=== PATIENT | female | born 1975 | race Two or more races ===

== ENCOUNTER 2017-01-16 10:38 | Emergency (ER) | payer BC ==
[~2017-01-16] VITALS: Ht 162.6 cm; Wt 99.8 kg
[~2017-01-16 10:38] MED LIST: CITA10TA59 PO; OMEP20CA5 OR
[2017-01-16] MEDS ORDERED: SODIUM CHLORIDE 0.9% 1,000 ML IVB ONE (11:28)
[2017-01-16] MEDS ORDERED: ONDANSETRON HCL 4 MG/2 ML VIAL IV ONE (11:30)
[2017-01-16] MEDS ORDERED: PANTOPRAZOLE SODIUM 40 MG/10 ML VIAL IV ONE (11:30)
[2017-01-16] MEDS ORDERED: MORPHINE SULFATE 4 MG/ML SYRG IV ONE (11:30)
[2017-01-16 12:15] LABS: Albumin 3.1 g/dL (3.4-5.0); BUN/Creatinine Ratio 15.4; Bilirubin, Total 0.4 mg/dL (0.2-1.0); Calcium 8.9 mg/dL (8.5-10.1); Potassium 3.9 mmol/L (3.5-5.1); Total Protein 7.1 g/dL (6.4-8.2)
[2017-01-16 12:20] LABS: Basophils # (auto) 0 uL; Basophils % (auto) 0.3 % (0.0-2.0); Eosinophils # (auto) 0.2 uL; Eosinophils % (auto) 2.4 % (0.0-7.0); Hematocrit 43.8 % (36.0-46.0); Hemoglobin 15.2 g/dL (12.2-16.2); Lymphocytes # (auto) 1.8 uL; Lymphocytes % (auto) 20.8 % (10.0-50.0); Mean Corpuscular Hemoglobin 31.3 pg (28.0-32.0); Mean Corpuscular Hgb Conc. 34.7 g/dL (32.0-36.0); Mean Corpuscular Volume 90.2 fL (80.0-100.0); Mean Platelet Volume 7.7 fL (7.4-10.4); Monocytes # (auto) 0.5 uL; Monocytes % (auto) 6.2 % (0.0-12.0); Neutrophils # (auto) 6.2 uL; Neutrophils % (auto) 70.3 % (37.0-80.0); Platelet Count (auto) 301 10^3/uL (140-450); Red Cell Distribution Width 13.7 % (11.6-16.0); White Blood Cell 8.8 10^3/uL (4.4-10.8)
[2017-01-16 12:27] LABS: Urine Bilirubin Negative (Negative); Urine Color Yellow (Yellow); Urine Glucose Normal (Normal); Urine Ketone Negative (Negative); Urine Mucus FEW (None Seen); Urine Nitrite Negative (Negative); Urine RBC 10 /hpf (0 - 4); Urine Squamous Epithelial Cell MOD /hpf (<5)
[2017-01-16 12:41] LABS: Urine Blood 1+ /uL (Negative)
[2017-01-16 14:40] VITALS: BP 114/68
== END 2017-01-16 14:45 | disposition home or self-care (01) ==
LOC: EDUNIT# 10:38 → ER 10:38
DX: R10.13 Epigastric pain (principal); R11.2 Nausea with vomiting, unspecified; K21.9 Gastro-esophageal reflux disease without esophagitis; Z87.440 Personal history of urinary (tract) infections; Z90.49 Acquired absence of other specified parts of digestive tract; Z98.51 Tubal ligation status
CPT/HCPCS: 36415; 74176; 80053; 81001; 83690; 85025; 94761; 96361; 96374; 96375; 99285; C9113; J2270; J2405; J7030

== ENCOUNTER → 2017-02-27 | Outpatient (CLI) | payer BC ==
[2017-02-27 07:46] LABS: Basophils # (auto) 0.1 uL; Basophils % (auto) 1.6 % (0.0-2.0); Eosinophils # (auto) 0.2 uL; Eosinophils % (auto) 3.2 % (0.0-7.0); Hematocrit 45.2 % (36.0-46.0); Hemoglobin 15.2 g/dL (12.2-16.2); Lymphocytes # (auto) 2.2 uL; Lymphocytes % (auto) 38.6 % (10.0-50.0); Mean Corpuscular Hemoglobin 30.8 pg (28.0-32.0); Mean Corpuscular Hgb Conc. 33.6 g/dL (32.0-36.0); Mean Corpuscular Volume 91.5 fL (80.0-100.0); Mean Platelet Volume 7.6 fL (7.4-10.4); Monocytes # (auto) 0.4 uL; Monocytes % (auto) 6.8 % (0.0-12.0); Neutrophils # (auto) 2.8 uL; Neutrophils % (auto) 49.8 % (37.0-80.0); Platelet Count (auto) 325 10^3/uL (140-450); Red Cell Distribution Width 13.8 % (11.6-16.0); White Blood Cell 5.7 10^3/uL (4.4-10.8)
[2017-02-27 08:25] LABS: Albumin 3.2 g/dL (3.4-5.0); BUN/Creatinine Ratio 9.1; Bilirubin, Total 0.2 mg/dL (0.2-1.0); Potassium 3.8 mmol/L (3.5-5.1); Total Protein 7.3 g/dL (6.4-8.2)
== END | disposition home or self-care (01) ==
LOC: LAB 07:00
PROVIDERS: ATTEND Internal Medicine
DX: D46.9 Myelodysplastic syndrome, unspecified (principal); E78.5 Hyperlipidemia, unspecified
CPT/HCPCS: 36415; 80053; 80061; 82043; 82728; 83036; 84443; 85025

== ENCOUNTER → 2017-04-18 | Outpatient (CLI) | payer BC ==
[2017-04-18 07:48] LABS: Albumin 3.3 g/dL (3.4-5.0); BUN/Creatinine Ratio 16.7; Bilirubin, Total 0.4 mg/dL (0.2-1.0); Calcium 8.4 mg/dL (8.5-10.1)
== END | disposition home or self-care (01) ==
LOC: LAB 06:58
PROVIDERS: ATTEND Internal Medicine
DX: E11.9 Type 2 diabetes mellitus without complications (principal)
CPT/HCPCS: 36415; 80053; 83036

== ENCOUNTER → 2017-06-02 | Outpatient (CLI) | payer BC ==
[~2017-06-02] MED LIST changes: -OMEP20CA5 OR; +OMEP20CA74 OR
== END | disposition home or self-care (01) ==
LOC: LAB 06:55
PROVIDERS: ATTEND Obstetrics & Gynecology
DX: D35.00 Benign neoplasm of unspecified adrenal gland (principal)
CPT/HCPCS: 36415; 82565; 84520

== ENCOUNTER 2017-08-15 06:56 | Inpatient (IN) | payer BC ==
[2017-08-12 12:46] LABS: Basophils # (auto) 0.1 uL; Basophils % (auto) 1.2 % (0.0-2.0); Eosinophils # (auto) 0.2 uL; Eosinophils % (auto) 3.1 % (0.0-7.0); Hematocrit 47.4 % (36.0-46.0); Lymphocytes # (auto) 1.8 uL; Lymphocytes % (auto) 24.5 % (10.0-50.0); Mean Corpuscular Hemoglobin 31.4 pg (28.0-32.0); Mean Corpuscular Hgb Conc. 33.9 g/dL (32.0-36.0); Mean Corpuscular Volume 92.8 fL (80.0-100.0); Mean Platelet Volume 7.1 fL (6.9-10.8); Monocytes # (auto) 0.5 uL; Monocytes % (auto) 6.3 % (0.0-12.0); Neutrophils # (auto) 4.8 uL; Neutrophils % (auto) 64.9 % (37.0-80.0); Nucleated Red Blood Cells % 0.1 %; Platelet Count (auto) 272 10^3/uL (140-450); Red Cell Distribution Width 13.7 % (11.8-14.3); White Blood Cell 7.4 10^3/uL (4.4-10.8)
[2017-08-12 12:54] LABS: Urine Bilirubin Negative (Negative); Urine Blood 3+ /uL (Negative); Urine Color PINK (Yellow); Urine Glucose Normal (Normal); Urine Ketone TRACE (Negative); Urine Nitrite Negative (Negative); Urine Urobilinogen Normal (Negative)
[2017-08-12 12:58] LABS: INR 0.95 (0.9-1.15); Partial Thromboplastin Time 27.7 sec (22.64-33.71); Prothrombin Time 10.4 sec (9.37-12.3)
[2017-08-12 13:10] LABS: Albumin 3.3 g/dL (3.4-5.0); BUN/Creatinine Ratio 15.8; Bilirubin, Total 0.6 mg/dL (0.2-1.0); Calcium 8.6 mg/dL (8.5-10.1); Potassium 3.9 mmol/L (3.5-5.1); Total Protein 7.6 g/dL (6.4-8.2)
[2017-08-15] VITALS (29 sets, daily range): BP systolic 83–131; BP diastolic 54–93
[~2017-08-15] VITALS: Ht 162.6 cm; Wt 126.5 kg
[~2017-08-15 06:56] MED LIST changes: -CITA10TA59 PO; +METO25TA5 PO; -OMEP20CA74 OR; +PANT40TA2 PO
[2017-08-15] MEDS ORDERED: ceFAZolin 1GM/50ML D5W 100 ML IV ONE (07:41)
[2017-08-15] MEDS ORDERED: fentaNYL CITRATE 100 MCG/2 ML VL ONE ×2 (08:00→14:01)
[2017-08-15] MEDS ORDERED: MIDAZOLAM HCL 1MG/1ML-2 ML VIAL ONE ×2 (08:00→14:01)
[2017-08-15] MEDS ORDERED: SODIUM CHLORIDE LOCK 20 ML ONE ×2 (08:01→14:01)
[2017-08-15] MEDS ORDERED: PROPOFOL 10 MG/ML 20 ML IV ONE (08:01)
[2017-08-15] MEDS ORDERED: fentaNYL CITRATE 10 ML ONE (08:01)
[2017-08-15] MEDS ORDERED: ONDANSETRON HCL 4 MG/2 ML VIAL ONE (08:01)
[2017-08-15] MEDS ORDERED: KETOROLAC TROMETH 60MG/2ML VIAL IM ONE ×2 (08:01→10:35)
[2017-08-15] MEDS ORDERED: BUPIVACAINE 0.25% INJ 50ML VIAL ONE (08:09)
[2017-08-15] MEDS ORDERED: LIDOCAINE 1% HCL (LOCAL ANESTH.) INJ 20ML MDV ONE ×2 (08:09→22:09)
[2017-08-15] MEDS ORDERED: LIDOCAINE W/ EPINEPHRINE 1 % INJ 30ML ONE (08:09)
[2017-08-15] MEDS ORDERED: BUPIVACAINE W/ EPINEPH 0.25% INJ 50ML MDV ONE (08:09)
[2017-08-15] MEDS ORDERED: GELATIN 1 SPONGE SIZE 100 TOP ONE (08:09)
[2017-08-15] MEDS ORDERED: CONJ ESTROGENS 0.625MG/GM VAG CRM 30GM PV ONE (08:09)
[2017-08-15] MEDS ORDERED: GELATIN 1 SPONGE SIZE 50 TOP ONE ×2 (08:09→15:20)
[2017-08-15] MEDS ORDERED: fentaNYL CITRATE 5 ML ONE ×3 (08:13→08:16)
[2017-08-15] MEDS ORDERED: MEPERIDINE HCL (50 MG/ML) 1 ML VIAL ONE (08:35)
[2017-08-15] MEDS ORDERED: METOCLOPRAMIDE HCL 5MG/ml INJ 2ml VIAL IV ONE (10:15)
[2017-08-15] MEDS ORDERED: GLYCOPYRROLATE 0.2 MG/ML 1ML VIAL ONE (10:35)
[2017-08-15] MEDS ORDERED: NEOSTIGMINE 1 MG/ML INJ (10mg/10ML VIAL) ONE (10:35)
[2017-08-15] MEDS: HYDROmorphone HCL 2 MG/ML VL IV PRN ×6 (11:26→22:12)
[2017-08-15] MEDS ORDERED: LACTATED RINGER'S 1,000 ML IV SCH (11:41)
[2017-08-15] MEDS ORDERED: HYDROmorphone HCL 2 MG/ML VL IV PRN (11:45)
[2017-08-15] MEDS ORDERED: KETOROLAC TROMETH 30 MG/ML 1ML VIAL IV SCH (12:00)
[2017-08-15] MEDS ORDERED: ACETAMINOPHEN IV 100 ML IV ONE (12:15)
[2017-08-15] MEDS ORDERED: NOREPINEPHRINE BITARTRATE 250 ML IV ONE (12:28)
[2017-08-15 12:48] LABS: Basophils # (auto) 0.1 uL; Basophils % (auto) 0.5 % (0.0-2.0); Eosinophils # (auto) 0.1 uL; Eosinophils % (auto) 0.4 % (0.0-7.0); Hematocrit 37.6 % (36.0-46.0); Hemoglobin 12.5 g/dL (12.2-16.2); Lymphocytes # (auto) 3.2 uL; Lymphocytes % (auto) 14.5 % (10.0-50.0); Mean Corpuscular Hemoglobin 31.2 pg (28.0-32.0); Mean Corpuscular Hgb Conc. 33.2 g/dL (32.0-36.0); Mean Corpuscular Volume 94.2 fL (80.0-100.0); Monocytes # (auto) 0.6 uL; Monocytes % (auto) 2.7 % (0.0-12.0); Neutrophils # (auto) 18.3 uL; Neutrophils % (auto) 81.9 % (37.0-80.0); Platelet Count (auto) 357 10^3/uL (140-450); Red Cell Distribution Width 13.7 % (11.8-14.3); White Blood Cell 22.3 10^3/uL (4.4-10.8)
[2017-08-15] MEDS ORDERED: ALBUMIN 25% 0 ML IV ONE (13:30)
[2017-08-15] MEDS ORDERED: IOHEXOL 300 MG/ML 100ML BOTTLE IJ ONE (13:48)
[2017-08-15] MEDS ORDERED: SUCCINYLCHOLINE CHLORIDE 20 MG/ML 10ML VIAL IV ONE (13:55)
[2017-08-15] MEDS ORDERED: HYDROmorphone HCL 2 MG/ML VL ONE (14:00)
[2017-08-15] MEDS ORDERED: ETOMIDATE (2MG/ML) 20ML VIAL IV ONE (14:01)
[2017-08-15] MEDS ORDERED: ROCURONIUM 10MG/ML 10ML VIAL IV ONE (14:01)
[2017-08-15] MEDS ORDERED: IOHEXOL 350 MG/ML 100ML IJ ONE (14:33)
[2017-08-15] MEDS ORDERED: LIDOCAINE 2%HCL (LOCAL ANESTH.) INJ 20ML MDV ONE (14:33)
[2017-08-15] MEDS ORDERED: ALBUMIN 25% 100 ML IV ONE ×2 (16:15→16:16)
[2017-08-15] MEDS ORDERED: LACTATED RINGER'S 1,000 ML IV ONE (16:30)
[2017-08-15 16:46] LABS: Basophils # (auto) 0.1 uL; Basophils % (auto) 0.6 % (0.0-2.0); Eosinophils # (auto) 0 uL; Eosinophils % (auto) 0.1 % (0.0-7.0); Hemoglobin 11.1 g/dL (12.2-16.2); Lymphocytes # (auto) 1.1 uL; Lymphocytes % (auto) 5.8 % (10.0-50.0); Mean Corpuscular Hemoglobin 31.5 pg (28.0-32.0); Mean Corpuscular Hgb Conc. 33.8 g/dL (32.0-36.0); Mean Corpuscular Volume 93.3 fL (80.0-100.0); Mean Platelet Volume 7.1 fL (6.9-10.8); Monocytes # (auto) 0.9 uL; Monocytes % (auto) 4.8 % (0.0-12.0); Neutrophils # (auto) 17.1 uL; Neutrophils % (auto) 88.7 % (37.0-80.0); Nucleated Red Blood Cells % 0.1 %; Platelet Count (auto) 232 10^3/uL (140-450); Red Cell Distribution Width 13.7 % (11.8-14.3); White Blood Cell 19.3 10^3/uL (4.4-10.8)
[2017-08-15 16:57] LABS: INR 1.05 (0.9-1.15); Partial Thromboplastin Time 24.8 sec (22.64-33.71); Prothrombin Time 11.5 sec (9.37-12.3)
[2017-08-15 17:24] LABS: Potassium 5.5 mmol/L (3.5-5.1)
[2017-08-15 17:25] LABS: BUN/Creatinine Ratio 15.9; Bilirubin, Total 1.3 mg/dL (0.2-1.0); Calcium 6.1 mg/dL (8.5-10.1); Total Protein 4.3 g/dL (6.4-8.2)
[2017-08-15 17:26] LABS: Albumin 1.9 g/dL (3.4-5.0)
[2017-08-15] MEDS ORDERED: SODIUM CHLORIDE 0.9% 1,000 ML IV SCH (18:30)
[2017-08-15] MEDS: ceFAZolin 1GM/50ML D5W 50 ML IV SCH (22:00)
[2017-08-15] MEDS ORDERED: NEOMYCIN-BACITRACIN-POLYM UNITDOSE PKG TOP OINT TOP ONE (22:17)
[2017-08-15 22:27] LABS: Basophils # (auto) 0 uL; Basophils % (auto) 0.2 % (0.0-2.0); Eosinophils # (auto) 0 uL; Hematocrit 27.9 % (36.0-46.0); Hemoglobin 9.4 g/dL (12.2-16.2); Lymphocytes % (auto) 6.5 % (10.0-50.0); Mean Corpuscular Hemoglobin 31.5 pg (28.0-32.0); Mean Corpuscular Hgb Conc. 33.7 g/dL (32.0-36.0); Mean Corpuscular Volume 93.5 fL (80.0-100.0); Mean Platelet Volume 7.3 fL (6.9-10.8); Monocytes % (auto) 6.2 % (0.0-12.0); Neutrophils % (auto) 87.1 % (37.0-80.0); Nucleated Red Blood Cells % 0.1 %; Platelet Count (auto) 190 10^3/uL (140-450); Red Cell Distribution Width 14.3 % (11.8-14.3); White Blood Cell 16.1 10^3/uL (4.4-10.8)
[2017-08-15 22:46] LABS: BUN/Creatinine Ratio 14.5; Calcium 6.5 mg/dL (8.5-10.1)
[2017-08-15 22:49] LABS: Potassium 6.1 mmol/L (3.5-5.1)
[2017-08-15] MEDS ORDERED: SODIUM POLYSTYRENE SULF 15GM/60ML SUSP PO ONE (23:15)
[2017-08-15] MEDS ORDERED: DEXTROSE 50% SYRINGE 50 ML IV ONE (23:33)
[2017-08-15] MEDS ORDERED: CALCIUM GLUC 4.65meq/50ml D5AE 50 ML IV ONE ×3 (23:35→23:45)
[2017-08-15] MEDS ORDERED: SODIUM BICARBONATE 8.4 % INJ 50ML VIAL IV ONE (23:40)
[2017-08-15] MEDS ORDERED: DEXTROSE (50%) 50ML SYRG IV ONE (23:45)
[2017-08-15] MEDS ORDERED: InsuLIN REG 1unit/0.01ml Soln (100units/ml) IV ONE (23:45)
[2017-08-15] MEDS: SODIUM BICARBONATE 50ML VIAL 50 ML in SOD CHL 0.45% 1,000 ML IV SCH (23:57)
[2017-08-15] MEDS ORDERED: IODIXANOL 320MG/ML 100ML BTL IV ONE (23:59)
[2017-08-16] VITALS (89 sets, daily range): BP systolic 90–156; BP diastolic 44–100
[2017-08-16] MEDS: HYDROmorphone HCL 2 MG/ML VL IV PRN ×5 (03:00→19:52)
[2017-08-16 04:41] LABS: Basophils # (auto) 0 uL; Eosinophils # (auto) 0 uL; Hematocrit 24.8 % (36.0-46.0); Hemoglobin 8.6 g/dL (12.2-16.2); Lymphocytes % (auto) 7.6 % (10.0-50.0); Mean Corpuscular Hemoglobin 31.8 pg (28.0-32.0); Mean Corpuscular Hgb Conc. 34.6 g/dL (32.0-36.0); Mean Corpuscular Volume 91.9 fL (80.0-100.0); Mean Platelet Volume 7.4 fL (6.9-10.8); Monocytes # (auto) 1.1 uL; Monocytes % (auto) 8.4 % (0.0-12.0); Neutrophils # (auto) 11.3 uL; Nucleated Red Blood Cells % 0.1 %; Platelet Count (auto) 185 10^3/uL (140-450); Red Cell Distribution Width 14.2 % (11.8-14.3); White Blood Cell 13.5 10^3/uL (4.4-10.8)
[2017-08-16 05:17] LABS: Albumin 2.6 g/dL (3.4-5.0); BUN/Creatinine Ratio 17.5; Potassium 5.4 mmol/L (3.5-5.1)
[2017-08-16 05:20] LABS: Bilirubin, Total 0.5 mg/dL (0.2-1.0)
[2017-08-16] MEDS: ceFAZolin 1GM/50ML D5W 50 ML IV SCH (05:27)
[2017-08-16] MEDS ORDERED: SODIUM BICARBONATE 8.4 % INJ 50ML VIAL IV ONE ×2 (05:40→23:47)
[2017-08-16] MEDS: ONDANSETRON HCL 4 MG/2 ML VIAL IV PRN ×2 (06:29→16:30)
[2017-08-16] MEDS ORDERED: SODIUM POLYSTYRENE SULF 15GM/60ML SUSP PO ONE (07:00)
[2017-08-16] MEDS: SODIUM BICARBONATE 50ML VIAL 50 ML in SOD CHL 0.45% 1,000 ML IV SCH (08:00)
[2017-08-16] MEDS ORDERED: FUROSEMIDE 20 MG/2 ML VIAL IV ONE (12:00)
[2017-08-16] MEDS: PANTOPRAZOLE 40 MG/10 ML VIAL IV SCH (12:05)
[2017-08-16] MEDS: metroNIDAZOLE 500MG/100ML 100 ML IV SCH ×2 (13:31→22:19)
[2017-08-16] MEDS ORDERED: ceFAZolin 1GM/50ML D5W 50 ML IV SCH (14:00)
[2017-08-16] MEDS: diphenhdrAMINE HCL 50 MG/1 ML VL IV PRN (19:52)
[2017-08-16] MEDS ORDERED: SODIUM BICARBONATE 50ML VIAL 50 ML in SOD CHL 0.45% 1,000 ML IV SCH (23:45)
[2017-08-17] VITALS (53 sets, daily range): BP systolic 100–146; BP diastolic 59–92
[2017-08-17] MEDS: HYDROmorphone HCL 2 MG/ML VL IV PRN ×6 (02:04→23:40)
[2017-08-17] MEDS: diphenhdrAMINE HCL 50 MG/1 ML VL IV PRN (02:09)
[2017-08-17 04:38] LABS: Basophils # (auto) 0 uL; Eosinophils # (auto) 0 uL; Lymphocytes # (auto) 1.6 uL; Monocytes % (auto) 8.1 % (0.0-12.0); Red Cell Distribution Width 14.1 % (11.8-14.3)
[2017-08-17 04:40] LABS: Basophils % (auto) 0.2 % (0.0-2.0); Eosinophils % (auto) 0.3 % (0.0-7.0); Hematocrit 21.5 % (36.0-46.0); Hemoglobin 7.7 g/dL (12.2-16.2); Lymphocytes % (auto) 17.1 % (10.0-50.0); Mean Corpuscular Hemoglobin 32.6 pg (28.0-32.0); Mean Corpuscular Hgb Conc. 35.8 g/dL (32.0-36.0); Mean Corpuscular Volume 91.1 fL (80.0-100.0); Mean Platelet Volume 7.1 fL (6.9-10.8); Monocytes # (auto) 0.8 uL; Neutrophils # (auto) 6.9 uL; Neutrophils % (auto) 74.3 % (37.0-80.0); Nucleated Red Blood Cells % 0.3 %; Platelet Count (auto) 144 10^3/uL (140-450); White Blood Cell 9.3 10^3/uL (4.4-10.8)
[2017-08-17 04:45] LABS: Potassium 3.7 mmol/L (3.5-5.1)
[2017-08-17 04:47] LABS: INR 0.98 (0.9-1.15); Prothrombin Time 10.7 sec (9.37-12.3)
[2017-08-17 04:51] LABS: Albumin 2.6 g/dL (3.4-5.0); Calcium 7.5 mg/dL (8.5-10.1)
[2017-08-17 04:53] LABS: Bilirubin, Total 0.5 mg/dL (0.2-1.0); Total Protein 5.1 g/dL (6.4-8.2)
[2017-08-17] MEDS: metroNIDAZOLE 500MG/100ML 100 ML IV SCH ×3 (06:15→22:00)
[2017-08-17 09:32] LABS: Hematocrit 21.4 % (36.0-46.0); Hemoglobin 7.5 g/dL (12.2-16.2)
[2017-08-17] MEDS: PANTOPRAZOLE 40 MG/10 ML VIAL IV SCH (09:58)
[2017-08-17] MEDS: SODIUM CHLORIDE 0.9% 1,000 ML IV SCH ×2 (10:00→23:36)
[2017-08-17] MEDS ORDERED: FUROSEMIDE 40 MG/4 ML VIAL IV ONE (11:15)
[2017-08-17] MEDS ORDERED: POTASSIUM CHLORIDE 20 MEQ, LIDOCAINE 1% (LOCAL ANESTH.) 2 ML in SODIUM CHL 0.9% 100 ML IV ONE (11:15)
[2017-08-17 19:23] LABS: Hemoglobin 9.9 g/dL (12.2-16.2)
[2017-08-18] VITALS (11 sets, daily range): BP systolic 105–144; BP diastolic 61–98
[2017-08-18 04:03] LABS: Basophils # (auto) 0 uL; Basophils % (auto) 0.4 % (0.0-2.0); Eosinophils # (auto) 0.1 uL; Eosinophils % (auto) 1.6 % (0.0-7.0); Hematocrit 27.1 % (36.0-46.0); Hemoglobin 9.4 g/dL (12.2-16.2); Lymphocytes # (auto) 1.3 uL; Lymphocytes % (auto) 16.2 % (10.0-50.0); Mean Corpuscular Hemoglobin 31.2 pg (28.0-32.0); Mean Corpuscular Hgb Conc. 34.7 g/dL (32.0-36.0); Mean Corpuscular Volume 89.9 fL (80.0-100.0); Mean Platelet Volume 6.7 fL (6.9-10.8); Monocytes # (auto) 0.4 uL; Monocytes % (auto) 5.2 % (0.0-12.0); Neutrophils # (auto) 6.2 uL; Neutrophils % (auto) 76.6 % (37.0-80.0); Nucleated Red Blood Cells % 0.3 %; Platelet Count (auto) 159 10^3/uL (140-450); Red Cell Distribution Width 14.9 % (11.8-14.3); White Blood Cell 8.1 10^3/uL (4.4-10.8)
[2017-08-18 04:18] LABS: BUN/Creatinine Ratio 21.6; Calcium 7.5 mg/dL (8.5-10.1); Potassium 3.6 mmol/L (3.5-5.1)
[2017-08-18] MEDS: metroNIDAZOLE 500MG/100ML 100 ML IV SCH (05:50)
[2017-08-18] MEDS: HYDROmorphone HCL 2 MG/ML VL IV PRN ×4 (07:41→19:33)
[2017-08-18] MEDS: PANTOPRAZOLE 40 MG/10 ML VIAL IV SCH (10:52)
[2017-08-18] MEDS: HYDROcodone-ACET 5/325MG TAB PO PRN (17:39)
[2017-08-19] MEDS: HYDROmorphone HCL 2 MG/ML VL IV PRN ×2 (00:17→05:21)
[2017-08-19 05:06] VITALS: BP 131/81
[2017-08-19 06:30] LABS: Basophils # (auto) 0.1 uL; Basophils % (auto) 0.9 % (0.0-2.0); Eosinophils # (auto) 0.2 uL; Eosinophils % (auto) 2.8 % (0.0-7.0); Hematocrit 28.5 % (36.0-46.0); Hemoglobin 9.9 g/dL (12.2-16.2); Lymphocytes # (auto) 1.1 uL; Lymphocytes % (auto) 13.5 % (10.0-50.0); Mean Corpuscular Hgb Conc. 34.6 g/dL (32.0-36.0); Mean Corpuscular Volume 89.6 fL (80.0-100.0); Mean Platelet Volume 6.6 fL (6.9-10.8); Monocytes # (auto) 0.5 uL; Neutrophils # (auto) 6.4 uL; Neutrophils % (auto) 76.8 % (37.0-80.0); Nucleated Red Blood Cells % 0.6 %; Platelet Count (auto) 205 10^3/uL (140-450); Red Cell Distribution Width 14.8 % (11.8-14.3); White Blood Cell 8.3 10^3/uL (4.4-10.8)
[2017-08-19 09:28] VITALS: BP 122/70
[2017-08-19] MEDS: PANTOPRAZOLE 40 MG/10 ML VIAL IV SCH (10:29)
[2017-08-19] MEDS: HYDROcodone-ACET 5/325MG TAB PO PRN ×5 (10:30→22:42)
[2017-08-19 13:00] VITALS: BP 124/75
[2017-08-19 17:31] VITALS: BP 131/86
[2017-08-19 22:00] VITALS: BP 132/70
[2017-08-20] MEDS ORDERED: TEMAZEPAM 15 MG CAP PO ONE (00:30)
[2017-08-20 05:12] VITALS: BP 136/86
[2017-08-20] MEDS: HYDROcodone-ACET 5/325MG TAB PO PRN ×3 (06:03→14:00)
[2017-08-20 06:26] LABS: Basophils # (auto) 0.1 uL; Basophils % (auto) 0.7 % (0.0-2.0); Eosinophils # (auto) 0.3 uL; Eosinophils % (auto) 3.3 % (0.0-7.0); Hematocrit 29.7 % (36.0-46.0); Hemoglobin 10.4 g/dL (12.2-16.2); Lymphocytes % (auto) 11.9 % (10.0-50.0); Mean Corpuscular Hemoglobin 31.2 pg (28.0-32.0); Mean Corpuscular Hgb Conc. 34.9 g/dL (32.0-36.0); Mean Corpuscular Volume 89.4 fL (80.0-100.0); Mean Platelet Volume 6.3 fL (6.9-10.8); Monocytes # (auto) 0.6 uL; Monocytes % (auto) 6.8 % (0.0-12.0); Neutrophils # (auto) 6.6 uL; Neutrophils % (auto) 77.3 % (37.0-80.0); Nucleated Red Blood Cells % 0.7 %; Platelet Count (auto) 230 10^3/uL (140-450); Red Cell Distribution Width 14.9 % (11.8-14.3); White Blood Cell 8.6 10^3/uL (4.4-10.8)
[2017-08-20 09:00] VITALS: BP 132/81
[2017-08-20 12:35] VITALS: BP 132/81
[2017-08-20 13:00] VITALS: BP 132/72
== END 2017-08-20 14:15 | disposition home or self-care (01) | DRG 742 ==
LOC: SUR 06:56 → ICU WEST 06:57 → TELE-WESTW 08-18 15:35
PROVIDERS: ADMIT Specialist; ATTEND Internal Medicine
PROC: 0UTC0ZZ Resection of Cervix, Open Approach (ICD-10-PCS; 2017-08-15)
PROC: 0UT50ZZ Resection of Right Fallopian Tube, Open Approach (ICD-10-PCS; 2017-08-15)
PROC: 0UT00ZZ Resection of Right Ovary, Open Approach (ICD-10-PCS; 2017-08-15)
PROC: 0UT10ZZ Resection of Left Ovary, Open Approach (ICD-10-PCS; 2017-08-15)
PROC: 04LE3DT Occlusion of Right Uterine Artery with Intraluminal Device, Percutaneous Approach (ICD-10-PCS; 2017-08-15)
PROC: 30233N1 Transfusion of Nonautologous Red Blood Cells into Peripheral Vein, Percutaneous Approach (ICD-10-PCS; 2017-08-15)
PROC: 02HV33Z Insertion of Infusion Device into Superior Vena Cava, Percutaneous Approach (ICD-10-PCS; 2017-08-15)
PROC: 0UT90ZZ Resection of Uterus, Open Approach (ICD-10-PCS; principal; 2017-08-15 08:37)
DX: D25.9 Leiomyoma of uterus, unspecified (principal); R57.1 Hypovolemic shock; Z68.42 Body mass index [BMI] 45.0-49.9, adult; K57.92 Diverticulitis of intestine, part unspecified, without perforation or abscess without bleeding; R65.10 Systemic inflammatory response syndrome (SIRS) of non-infectious origin without acute organ dysfunction; D62 Acute posthemorrhagic anemia; J98.11 Atelectasis; E66.01 Morbid (severe) obesity due to excess calories; N94.6 Dysmenorrhea, unspecified; N80.0 Endometriosis of uterus; K76.0 Fatty (change of) liver, not elsewhere classified; N92.0 Excessive and frequent menstruation with regular cycle; D17.9 Benign lipomatous neoplasm, unspecified; I10 Essential (primary) hypertension; Z80.41 Family history of malignant neoplasm of ovary; Z98.51 Tubal ligation status; Z80.0 Family history of malignant neoplasm of digestive organs; Z90.49 Acquired absence of other specified parts of digestive tract
CPT/HCPCS: 36415; 71010; 74000; 74177; 74178; 76937; 80048; 80053; 81003; 84132; 84702; 85014; 85018; 85025; 85610; 85730; 86850; 86900; 86901; 86920; 99152; 99153; C9113; J0131; J0330; J0610; J0690; J1885; J2001; J2250; J2405; J2704; J3490; Q9967

== ENCOUNTER 2017-08-25 00:44 | Inpatient (IN) | payer BC ==
[2017-08-25] VITALS (7 sets, daily range): BP systolic 116–134; BP diastolic 70–74
[~2017-08-25] VITALS: Ht 162.6 cm; Wt 111.5 kg
[2017-08-25] MEDS ORDERED: SODIUM CHLORIDE 0.9% 1,000 ML IVB ONE (01:24)
[2017-08-25] MEDS ORDERED: IOHEXOL 300 MG/ML 100ML BOTTLE IJ ONE (01:26)
[2017-08-25] MEDS ORDERED: ONDANSETRON HCL 4 MG/2 ML VIAL IV ONE ×2 (01:30→04:15)
[2017-08-25] MEDS ORDERED: HYDROmorphone HCL 2 MG/ML VL IV ONE ×2 (01:30→04:00)
[2017-08-25 01:32] LABS: Eosinophils # (auto) 0.1 uL; Hemoglobin 13.3 g/dL (12.2-16.2); Lymphocytes % (auto) 5.3 % (10.0-50.0); Monocytes # (auto) 0.5 uL; Neutrophils # (auto) 12.7 uL; Nucleated Red Blood Cells % 0.1 %
[2017-08-25 01:33] LABS: Basophils # (auto) 0.2 uL; Basophils % (auto) 1.1 % (0.0-2.0); Eosinophils % (auto) 0.6 % (0.0-7.0); Hematocrit 39.5 % (36.0-46.0); Lymphocytes # (auto) 0.8 uL; Mean Corpuscular Hgb Conc. 33.7 g/dL (32.0-36.0); Mean Corpuscular Volume 88.8 fL (80.0-100.0); Mean Platelet Volume 6.7 fL (6.9-10.8); Monocytes % (auto) 3.4 % (0.0-12.0); Neutrophils % (auto) 89.6 % (37.0-80.0); Platelet Count (auto) 477 10^3/uL (140-450); Red Cell Distribution Width 15.4 % (11.8-14.3); White Blood Cell 14.2 10^3/uL (4.4-10.8)
[2017-08-25 01:52] LABS: Albumin 2.9 g/dL (3.4-5.0); Anion Gap 12 (5-15); Aspartate Aminotransferase 44 U/L (15-37); BUN/Creatinine Ratio 17.9; Blood Urea Nitrogen 12 mg/dL (7-18); Calcium 9.3 mg/dL (8.5-10.1); Carbon Dioxide 23 mmol/L (21-32); Chloride 101 mmol/L (98-107); GFR African American 125 mL/min; GFR Non-African American 104 mL/min; Glucose 121 mg/dL (74-106); INR 0.95 (0.9-1.15); Magnesium 2.2 mg/dL (1.6-2.6); Partial Thromboplastin Time 32.9 sec (22.64-33.71); Potassium 3.7 mmol/L (3.5-5.1); Prothrombin Time 10.3 sec (9.37-12.3); Sodium 136 mmol/L (136-145)
[2017-08-25 01:53] LABS: Amylase 74 U/L (25-115)
[2017-08-25 01:54] LABS: Alkaline Phosphatase 144 U/L (45-117); Bilirubin, Total 1.6 mg/dL (0.2-1.0); Total Protein 8.3 g/dL (6.4-8.2)
[2017-08-25 03:57] LABS: Urine Bilirubin Negative (Negative); Urine Blood 3+ /uL (Negative); Urine Color Yellow (Yellow); Urine Glucose Normal (Normal); Urine Ketone 2+ (Negative); Urine Nitrite POSITIVE (Negative); Urine RBC 30 /hpf (0 - 4); Urine Squamous Epithelial Cell FEW /hpf (<5); Urine Urobilinogen Normal (Negative); Urine pH 6.5 (5.0-8.0)
[2017-08-25] MEDS ORDERED: SODIUM CHLORIDE 0.9% 2,000 ML IV ONE (04:00)
[2017-08-25] MEDS ORDERED: PIPERACILLIN-TAZO 4.5GM 100 ML IV ONE (04:00)
[2017-08-25] MEDS ORDERED: metroNIDAZOLE 500MG/100ML 100 ML IV ONE (04:00)
[2017-08-25] MEDS ORDERED: ACETAMINOPHEN 500 MG TAB PO PRN (05:45)
[2017-08-25] MEDS ORDERED: NITROGLYCERIN 0.4 MG SL TAB SL PRN (05:45)
[2017-08-25] MEDS ORDERED: MORPHINE SULF INJ 2 MG/ML SYRINGE 1ML IV PRN (05:45)
[2017-08-25] MEDS ORDERED: SODIUM CHLORIDE 0.9% 1,000 ML IV SCH (05:45)
[2017-08-25] MEDS ORDERED: VANCOMYCIN PER PHARMACY 0 MG IV SCH (05:45)
[2017-08-25] MEDS ORDERED: PIPERACILLIN-TAZOB 3.375GM 100 ML IV SCH (06:00)
[2017-08-25] MEDS ORDERED: metroNIDAZOLE 500MG/100ML 100 ML IV SCH (06:00)
[2017-08-25] MEDS ORDERED: VANCOMYCIN 1GM/250ML D5W 250 ML IV SCH (07:00)
[2017-08-25] MEDS: ONDANSETRON HCL 4 MG/2 ML VIAL IV PRN ×3 (09:02→15:00)
[2017-08-25] MEDS: MORPHINE SULF INJ 2 MG/ML SYRINGE 1ML IV PRN ×3 (09:02→21:26)
[2017-08-25] MEDS ORDERED: PANTOPRAZOLE 40 MG/10 ML VIAL IV ONE (11:15)
[2017-08-25] MEDS: DOXYCYCLINE HYC 100MG/250ML 250 ML IV SCH ×2 (11:47→23:07)
[2017-08-25] MEDS: metroNIDAZOLE 500 MG TAB PO SCH ×2 (13:58→22:00)
[2017-08-25] MEDS: TEMAZEPAM 15 MG CAP PO PRN (23:24)
[2017-08-26] MEDS: HYDROcodone-ACET 5/325MG TAB PO PRN ×3 (03:23→21:52)
[2017-08-26 05:31] VITALS: BP 109/63
[2017-08-26] MEDS: metroNIDAZOLE 500 MG TAB PO SCH ×3 (05:56→21:51)
[2017-08-26] MEDS: SODIUM CHLORIDE 0.9% 1,000 ML IV SCH ×2 (05:56→15:45)
[2017-08-26 06:30] LABS: Basophils # (auto) 0 uL; Basophils % (auto) 0.2 % (0.0-2.0); Eosinophils # (auto) 0.2 uL; Eosinophils % (auto) 2.1 % (0.0-7.0); Hematocrit 31.6 % (36.0-46.0); Hemoglobin 10.7 g/dL (12.2-16.2); Lymphocytes # (auto) 0.7 uL; Lymphocytes % (auto) 8.3 % (10.0-50.0); Mean Corpuscular Hemoglobin 30.2 pg (28.0-32.0); Mean Corpuscular Hgb Conc. 33.9 g/dL (32.0-36.0); Mean Corpuscular Volume 89.1 fL (80.0-100.0); Mean Platelet Volume 6.4 fL (6.9-10.8); Monocytes # (auto) 0.4 uL; Monocytes % (auto) 4.6 % (0.0-12.0); Neutrophils % (auto) 84.8 % (37.0-80.0); Platelet Count (auto) 411 10^3/uL (140-450); Red Cell Distribution Width 15.1 % (11.8-14.3); White Blood Cell 8.2 10^3/uL (4.4-10.8)
[2017-08-26 06:58] LABS: BUN/Creatinine Ratio 15.2; Bilirubin, Total 0.8 mg/dL (0.2-1.0); Calcium 7.8 mg/dL (8.5-10.1); Total Protein 6.4 g/dL (6.4-8.2)
[2017-08-26 08:00] VITALS: BP 112/60
[2017-08-26 09:00] VITALS: BP 112/60
[2017-08-26] MEDS ORDERED: PANTOPRAZOLE 40 MG/10 ML VIAL IV SCH (10:00)
[2017-08-26] MEDS: FLORASTOR (S. BOULARDII) 250 MG CAP PO SCH (10:23)
[2017-08-26] MEDS: MORPHINE SULF INJ 2 MG/ML SYRINGE 1ML IV PRN (10:38)
[2017-08-26] MEDS: DOXYCYCLINE HYC 100MG/250ML 250 ML IV SCH (10:50)
[2017-08-26] MEDS ORDERED: POTASSIUM CHL 20 Meq TABLET PO ONE (12:15)
[2017-08-26 13:00] VITALS: BP 116/70
[2017-08-26 17:00] VITALS: BP 120/63
[2017-08-26 20:00] VITALS: BP 130/74
[2017-08-26] MEDS: DOXYCYCLINE 100 MG TAB/CAP PO SCH (21:51)
[2017-08-26] MEDS: TEMAZEPAM 15 MG CAP PO PRN (21:52)
[2017-08-27 04:00] VITALS: BP 130/74
[2017-08-27 05:25] VITALS: BP 120/92
[2017-08-27] MEDS: metroNIDAZOLE 500 MG TAB PO SCH ×3 (05:32→22:25)
[2017-08-27 06:19] LABS: Basophils # (auto) 0 uL; Basophils % (auto) 0.3 % (0.0-2.0); Eosinophils # (auto) 0.2 uL; Hemoglobin 10.8 g/dL (12.2-16.2); Nucleated Red Blood Cells % 0.1 %
[2017-08-27 06:23] LABS: Eosinophils % (auto) 2.8 % (0.0-7.0); Hematocrit 32.2 % (36.0-46.0); Lymphocytes # (auto) 0.9 uL; Lymphocytes % (auto) 11.3 % (10.0-50.0); Mean Corpuscular Hemoglobin 29.5 pg (28.0-32.0); Mean Corpuscular Hgb Conc. 33.6 g/dL (32.0-36.0); Mean Corpuscular Volume 87.9 fL (80.0-100.0); Mean Platelet Volume 6.7 fL (6.9-10.8); Monocytes # (auto) 0.5 uL; Monocytes % (auto) 5.9 % (0.0-12.0); Neutrophils # (auto) 6.5 uL; Neutrophils % (auto) 79.7 % (37.0-80.0); Platelet Count (auto) 491 10^3/uL (140-450); Red Cell Distribution Width 15.1 % (11.8-14.3); White Blood Cell 8.2 10^3/uL (4.4-10.8)
[2017-08-27 06:32] LABS: BUN/Creatinine Ratio 18.6; Calcium 7.8 mg/dL (8.5-10.1); Potassium 3.4 mmol/L (3.5-5.1)
[2017-08-27 07:49] VITALS: BP 109/74
[2017-08-27] MEDS: FLORASTOR (S. BOULARDII) 250 MG CAP PO SCH (08:59)
[2017-08-27] MEDS: PANTOPRAZOLE 40 MG TAB PO SCH (08:59)
[2017-08-27] MEDS: HYDROcodone-ACET 5/325MG TAB PO PRN ×2 (08:59→17:00)
[2017-08-27] MEDS: DOXYCYCLINE 100 MG TAB/CAP PO SCH ×2 (09:00→22:25)
[2017-08-27] MEDS ORDERED: POTASSIUM CHL 20 Meq TABLET PO ONE (11:00)
[2017-08-27] MEDS ORDERED: IOHEXOL 300 MG/ML 100ML BOTTLE IJ ONE (11:41)
[2017-08-27] MEDS ORDERED: IOHEXOL 350 MG/ML 100ML IJ ONE (11:45)
[2017-08-27 12:02] LABS: Eosinophils # (auto) 0.2 uL; Monocytes # (auto) 0.5 uL; Nucleated Red Blood Cells % 0.1 %; Red Cell Distribution Width 15.2 % (11.8-14.3)
[2017-08-27 12:04] LABS: Basophils # (auto) 0.1 uL; Basophils % (auto) 0.6 % (0.0-2.0); Eosinophils % (auto) 2.2 % (0.0-7.0); Hematocrit 36.5 % (36.0-46.0); Hemoglobin 12.3 g/dL (12.2-16.2); Lymphocytes # (auto) 1.2 uL; Lymphocytes % (auto) 14.2 % (10.0-50.0); Mean Corpuscular Hemoglobin 30.2 pg (28.0-32.0); Mean Corpuscular Hgb Conc. 33.7 g/dL (32.0-36.0); Mean Corpuscular Volume 89.6 fL (80.0-100.0); Mean Platelet Volume 6.5 fL (6.9-10.8); Monocytes % (auto) 6.2 % (0.0-12.0); Neutrophils # (auto) 6.6 uL; Neutrophils % (auto) 76.8 % (37.0-80.0); Platelet Count (auto) 582 10^3/uL (140-450); White Blood Cell 8.6 10^3/uL (4.4-10.8)
[2017-08-27] MEDS: MORPHINE SULF INJ 2 MG/ML SYRINGE 1ML IV PRN ×2 (14:47→22:25)
[2017-08-27 17:28] VITALS: BP 114/67
[2017-08-27 20:00] VITALS: BP 122/67
[2017-08-27 22:00] VITALS: BP 122/67
[2017-08-27] MEDS: ONDANSETRON HCL 4 MG/2 ML VIAL IV PRN (22:25)
[2017-08-27] MEDS: TEMAZEPAM 15 MG CAP PO PRN (23:31)
[2017-08-28] MEDS: MORPHINE SULF INJ 2 MG/ML SYRINGE 1ML IV PRN ×5 (02:45→21:58)
[2017-08-28] MEDS: HYDROcodone-ACET 5/325MG TAB PO PRN ×2 (04:59→12:09)
[2017-08-28 05:00] VITALS: BP 116/72
[2017-08-28] MEDS: metroNIDAZOLE 500 MG TAB PO SCH ×3 (05:55→21:34)
[2017-08-28 08:37] VITALS: BP 123/77
[2017-08-28] MEDS: DOXYCYCLINE 100 MG TAB/CAP PO SCH ×2 (09:56→21:34)
[2017-08-28] MEDS: PANTOPRAZOLE 40 MG TAB PO SCH (09:59)
[2017-08-28] MEDS: FLORASTOR (S. BOULARDII) 250 MG CAP PO SCH (10:00)
[2017-08-28 11:25] LABS: Basophils # (auto) 0.1 uL; Eosinophils # (auto) 0.2 uL; Hemoglobin 11.9 g/dL (12.2-16.2); Lymphocytes # (auto) 1.1 uL; Lymphocytes % (auto) 15.2 % (10.0-50.0); Monocytes # (auto) 0.5 uL
[2017-08-28 11:27] LABS: Basophils % (auto) 0.9 % (0.0-2.0); Eosinophils % (auto) 3.3 % (0.0-7.0); Hematocrit 35.9 % (36.0-46.0); Mean Corpuscular Hemoglobin 29.5 pg (28.0-32.0); Mean Corpuscular Hgb Conc. 33.3 g/dL (32.0-36.0); Mean Corpuscular Volume 88.7 fL (80.0-100.0); Mean Platelet Volume 6.6 fL (6.9-10.8); Monocytes % (auto) 6.7 % (0.0-12.0); Neutrophils # (auto) 5.5 uL; Neutrophils % (auto) 73.9 % (37.0-80.0); Nucleated Red Blood Cells % 0.1 %; Platelet Count (auto) 621 10^3/uL (140-450); Red Cell Distribution Width 15.4 % (11.8-14.3); White Blood Cell 7.5 10^3/uL (4.4-10.8)
[2017-08-28 13:14] VITALS: BP 113/75
[2017-08-28 16:12] VITALS: BP 110/71
[2017-08-28 18:02] LABS: Urine Bilirubin Negative (Negative); Urine Blood 2+ /uL (Negative); Urine Glucose Normal (Normal); Urine Ketone Negative (Negative); Urine Mucus FEW (None Seen); Urine Nitrite Negative (Negative); Urine RBC 24 /hpf (0 - 4); Urine Squamous Epithelial Cell FEW /hpf (<5); Urine Urobilinogen Normal (Negative)
[2017-08-28 18:04] LABS: Urine Color Amber (Yellow)
[2017-08-28] MEDS: TEMAZEPAM 15 MG CAP PO PRN (21:35)
[2017-08-28 22:00] VITALS: BP 120/77
[2017-08-29] MEDS: MORPHINE SULF INJ 2 MG/ML SYRINGE 1ML IV PRN (03:21)
[2017-08-29 05:00] VITALS: BP 110/65
[2017-08-29] MEDS: metroNIDAZOLE 500 MG TAB PO SCH (05:40)
[2017-08-29 05:59] LABS: BUN/Creatinine Ratio 18.2; Calcium 8.5 mg/dL (8.5-10.1); Potassium 3.9 mmol/L (3.5-5.1)
[2017-08-29 06:03] LABS: Basophils # (auto) 0 uL; Mean Platelet Volume 6.4 fL (6.9-10.8); Monocytes # (auto) 0.6 uL
[2017-08-29 06:07] LABS: Basophils % (auto) 0.7 % (0.0-2.0); Eosinophils # (auto) 0.2 uL; Eosinophils % (auto) 3.4 % (0.0-7.0); Hematocrit 34.3 % (36.0-46.0); Hemoglobin 11.6 g/dL (12.2-16.2); Lymphocytes # (auto) 1.2 uL; Lymphocytes % (auto) 16.9 % (10.0-50.0); Mean Corpuscular Volume 88.3 fL (80.0-100.0); Monocytes % (auto) 8.1 % (0.0-12.0); Neutrophils # (auto) 4.9 uL; Neutrophils % (auto) 70.9 % (37.0-80.0); Nucleated Red Blood Cells % 0.2 %; Platelet Count (auto) 623 10^3/uL (140-450); Red Cell Distribution Width 15.2 % (11.8-14.3); White Blood Cell 6.9 10^3/uL (4.4-10.8)
[2017-08-29 08:24] VITALS: BP 126/76
[2017-08-29] MEDS ORDERED: IOHEXOL 300 MG/ML 100ML BOTTLE IJ ONE (09:04)
[2017-08-29] MEDS ORDERED: PRO-STAT 64 30ML PO SCH (10:00)
[2017-08-29] MEDS: PANTOPRAZOLE 40 MG TAB PO SCH (10:11)
[2017-08-29] MEDS: DOXYCYCLINE 100 MG TAB/CAP PO SCH (10:11)
[2017-08-29] MEDS: HYDROcodone-ACET 5/325MG TAB PO PRN (10:11)
[2017-08-29] MEDS: FLORASTOR (S. BOULARDII) 250 MG CAP PO SCH (10:11)
[2017-08-29] MEDS ORDERED: CEPH-37 PO (10:22)
== END 2017-08-29 11:35 | disposition home or self-care (01) | DRG 760 ==
LOC: ER 00:46 → TELE 00:47 → TELE-EAST 08:30 → EAST 16:37
PROVIDERS: ADMIT Nurse Practitioner Family; ATTEND Internal Medicine
DX: N94.89 Other specified conditions associated with female genital organs and menstrual cycle (principal); N12 Tubulo-interstitial nephritis, not specified as acute or chronic; T81.31XA Disruption of external operation (surgical) wound, not elsewhere classified, initial encounter; E66.01 Morbid (severe) obesity due to excess calories; K76.0 Fatty (change of) liver, not elsewhere classified; Z68.41 Body mass index [BMI] 40.0-44.9, adult; D35.02 Benign neoplasm of left adrenal gland; K57.30 Diverticulosis of large intestine without perforation or abscess without bleeding; E66.9 Obesity, unspecified; Y83.8 Other surgical procedures as the cause of abnormal reaction of the patient, or of later complication, without mention of misadventure at the time of the procedure; K21.9 Gastro-esophageal reflux disease without esophagitis; Z90.710 Acquired absence of both cervix and uterus; Z90.49 Acquired absence of other specified parts of digestive tract; Z98.51 Tubal ligation status; Z80.8 Family history of malignant neoplasm of other organs or systems; Z82.49 Family history of ischemic heart disease and other diseases of the circulatory system; Z90.722 Acquired absence of ovaries, bilateral; Y92.89 Other specified places as the place of occurrence of the external cause
CPT/HCPCS: 36415; 71010; 74170; 74177; 80048; 80053; 81001; 82150; 83605; 83690; 83735; 84484; 84702; 85025; 85048; 85610; 85730; 86141; 87040; 87045; 87081; 87086; 87493; 87899; 96365; 96367; 96368; 96375; 96376; C9113; J2405; J2543; J3490

== ENCOUNTER → 2017-09-25 | Outpatient (CLI) | payer BC ==
[~2017-09-25] MED LIST changes: +CEPH-37 PO; -METO25TA5 PO
[2017-09-25 09:02] LABS: Basophils # (auto) 0 uL; Basophils % (auto) 0.4 % (0.0-2.0); Eosinophils # (auto) 0.3 uL; Eosinophils % (auto) 4.4 % (0.0-7.0); Hematocrit 43.7 % (36.0-46.0); Hemoglobin 15.1 g/dL (12.2-16.2); Lymphocytes # (auto) 1.8 uL; Lymphocytes % (auto) 24.4 % (10.0-50.0); Mean Corpuscular Hemoglobin 30.6 pg (28.0-32.0); Mean Corpuscular Hgb Conc. 34.5 g/dL (32.0-36.0); Mean Corpuscular Volume 88.9 fL (80.0-100.0); Mean Platelet Volume 6.7 fL (6.9-10.8); Monocytes # (auto) 0.4 uL; Monocytes % (auto) 5.6 % (0.0-12.0); Neutrophils # (auto) 4.7 uL; Neutrophils % (auto) 65.2 % (37.0-80.0); Nucleated Red Blood Cells % 0.3 %; Platelet Count (auto) 258 10^3/uL (140-450); Red Cell Distribution Width 16.5 % (11.8-14.3); White Blood Cell 7.3 10^3/uL (4.4-10.8)
[2017-09-25 09:41] LABS: Albumin 3.5 g/dL (3.4-5.0); BUN/Creatinine Ratio 17.2; Bilirubin, Total 0.7 mg/dL (0.2-1.0); Calcium 9.2 mg/dL (8.5-10.1); Potassium 3.6 mmol/L (3.5-5.1); Total Protein 8.1 g/dL (6.4-8.2)
== END ==
LOC: LAB 08:38
PROVIDERS: ATTEND Internal Medicine
DX: D64.9 Anemia, unspecified (principal)
CPT/HCPCS: 36415; 80053; 85025

== ENCOUNTER → 2017-10-13 | Outpatient (CLI) | payer BC | END | disposition home or self-care (01) | LOC: LAB 11:01 | PROVIDERS: ATTEND Specialist | DX: N94.89 Other specified conditions associated with female genital organs and menstrual cycle (principal) | CPT/HCPCS: 36415; 82565; 84520 ==

== ENCOUNTER → 2017-11-24 | Outpatient (CLI) | payer BC ==
[~2017-11-24] MED LIST changes: +CIPR-173 PO; +METR500T PO
[2017-11-24 14:17] LABS: Basophils # (auto) 0.1 uL; Basophils % (auto) 1.2 % (0.0-2.0); Eosinophils # (auto) 0.1 uL; Eosinophils % (auto) 1.5 % (0.0-7.0); Hematocrit 45.1 % (36.0-46.0); Hemoglobin 15.5 g/dL (12.2-16.2); Lymphocytes # (auto) 2.4 uL; Lymphocytes % (auto) 26.4 % (10.0-50.0); Mean Corpuscular Hemoglobin 30.8 pg (28.0-32.0); Mean Corpuscular Hgb Conc. 34.5 g/dL (32.0-36.0); Mean Corpuscular Volume 89.4 fL (80.0-100.0); Monocytes # (auto) 0.6 uL; Monocytes % (auto) 6.7 % (0.0-12.0); Neutrophils # (auto) 5.9 uL; Neutrophils % (auto) 64.2 % (37.0-80.0); Nucleated Red Blood Cells % 0.1 %; Platelet Count (auto) 347 10^3/uL (140-450); Red Blood Cells 5.05 10^6/uL (4.0-5.20); Red Cell Distribution Width 13.9 % (11.8-14.3); White Blood Cell 9.1 10^3/uL (4.4-10.8)
[2017-11-24 14:19] LABS: Urine Bacteria NONE SEEN /hpf (None Seen); Urine Blood 2+ /uL (Negative); Urine Mucus FEW (None Seen); Urine WBC 2 /hpf (0 - 5)
[2017-11-24 14:48] LABS: Albumin 3.3 g/dL (3.4-5.0); BUN/Creatinine Ratio 16.7; Bilirubin, Total 0.8 mg/dL (0.2-1.0); Calcium 8.7 mg/dL (8.5-10.1); Potassium 3.6 mmol/L (3.5-5.1); Total Protein 7.9 g/dL (6.4-8.2)
== END ==
LOC: LAB 13:58
PROVIDERS: ATTEND Internal Medicine
DX: K57.92 Diverticulitis of intestine, part unspecified, without perforation or abscess without bleeding (principal)
CPT/HCPCS: 36415; 80053; 81001; 85025

== ENCOUNTER 2017-11-25 12:21 | Inpatient (IN) | payer BC ==
[~2017-11-25] VITALS: Ht 162.6 cm; Wt 106.0 kg
[~2017-11-25 12:21] MED LIST changes: -CIPR-173 PO; -METR500T PO
[2017-11-25 12:30] VITALS: BP 128/83
[2017-11-25] MEDS ORDERED: NITROGLYCERIN 0.4 MG SL TAB SL PRN (14:15)
[2017-11-25] MEDS ORDERED: PANTOPRAZOLE 40 MG/10 ML VIAL IV ONE (14:15)
[2017-11-25] MEDS ORDERED: HYDROcodone-ACET 5/325MG TAB PO PRN (14:15)
[2017-11-25] MEDS ORDERED: ONDANSETRON HCL 4 MG/2 ML VIAL IV PRN (14:15)
[2017-11-25] MEDS ORDERED: LEVOFLOXACIN 500MG 100 ML IV ONE (14:15)
[2017-11-25] MEDS ORDERED: MORPHINE SULF INJ 2 MG/ML SYRINGE 1ML ONE (14:32)
[2017-11-25] MEDS: MORPHINE SULF INJ 2 MG/ML SYRINGE 1ML IV PRN ×3 (14:40→22:57)
[2017-11-25] MEDS ORDERED: metroNIDAZOLE 500MG/100ML 100 ML IV ONE (15:00)
[2017-11-25 15:01] LABS: Basophils # (auto) 0.1 uL; Basophils % (auto) 1.5 % (0.0-2.0); Eosinophils # (auto) 0.2 uL; Eosinophils % (auto) 2.6 % (0.0-7.0); Hemoglobin 15.2 g/dL (12.2-16.2); Lymphocytes # (auto) 1.5 uL; Lymphocytes % (auto) 22.7 % (10.0-50.0); Mean Corpuscular Hemoglobin 31.5 pg (28.0-32.0); Mean Corpuscular Hgb Conc. 34.6 g/dL (32.0-36.0); Mean Corpuscular Volume 91.1 fL (80.0-100.0); Monocytes # (auto) 0.6 uL; Monocytes % (auto) 9.1 % (0.0-12.0); Neutrophils # (auto) 4.3 uL; Neutrophils % (auto) 64.1 % (37.0-80.0); Nucleated Red Blood Cells % 0.2 %; Platelet Count (auto) 384 10^3/uL (140-450); Red Blood Cells 4.83 10^6/uL (4.0-5.20); Red Cell Distribution Width 13.9 % (11.8-14.3); White Blood Cell 6.8 10^3/uL (4.4-10.8)
[2017-11-25] MEDS: SODIUM CHLORIDE 0.9% 1,000 ML IV SCH (15:09)
[2017-11-25 15:13] LABS: INR 0.97 (0.9-1.15); Partial Thromboplastin Time 29.1 sec (22.64-33.71); Prothrombin Time 10.6 sec (9.37-12.3)
[2017-11-25 15:38] LABS: Potassium 3.4 mmol/L (3.5-5.1)
[2017-11-25 15:39] LABS: Albumin 2.8 g/dL (3.4-5.0); BUN/Creatinine Ratio 9.6; Bilirubin, Total 0.3 mg/dL (0.2-1.0); Calcium 8.5 mg/dL (8.5-10.1); Total Protein 7.3 g/dL (6.4-8.2)
[2017-11-25 15:46] LABS: Urine Bacteria NONE SEEN /hpf (None Seen); Urine Blood 1+ /uL (Negative); Urine Mucus FEW (None Seen); Urine Specific Gravity 1.011 (1.001-1.035); Urine WBC 1 /hpf (0 - 5)
[2017-11-25 16:53] VITALS: BP 113/75
[2017-11-25] MEDS ORDERED: TEMAZEPAM 15 MG CAP PO ONE (21:00)
[2017-11-25 22:00] VITALS: BP 128/77
[2017-11-25] MEDS: metroNIDAZOLE 500MG/100ML 100 ML IV SCH (22:56)
[2017-11-26] MEDS: SODIUM CHLORIDE 0.9% 1,000 ML IV SCH ×2 (03:35→16:55)
[2017-11-26 05:00] VITALS: BP 125/80
[2017-11-26] MEDS: metroNIDAZOLE 500MG/100ML 100 ML IV SCH ×3 (05:03→21:13)
[2017-11-26] MEDS: MORPHINE SULF INJ 2 MG/ML SYRINGE 1ML IV PRN ×4 (05:11→21:13)
[2017-11-26 07:04] LABS: Basophils # (auto) 0 uL; Basophils % (auto) 0.5 % (0.0-2.0); Eosinophils # (auto) 0.1 uL; Eosinophils % (auto) 2.7 % (0.0-7.0); Hematocrit 41.9 % (36.0-46.0); Hemoglobin 14.3 g/dL (12.2-16.2); Lymphocytes # (auto) 1.2 uL; Lymphocytes % (auto) 22.1 % (10.0-50.0); Mean Corpuscular Hemoglobin 30.9 pg (28.0-32.0); Mean Corpuscular Hgb Conc. 34.2 g/dL (32.0-36.0); Mean Corpuscular Volume 90.4 fL (80.0-100.0); Monocytes # (auto) 0.6 uL; Monocytes % (auto) 10.3 % (0.0-12.0); Neutrophils # (auto) 3.5 uL; Neutrophils % (auto) 64.4 % (37.0-80.0); Nucleated Red Blood Cells % 0.1 %; Platelet Count (auto) 350 10^3/uL (140-450); Red Blood Cells 4.63 10^6/uL (4.0-5.20); Red Cell Distribution Width 13.6 % (11.8-14.3); White Blood Cell 5.4 10^3/uL (4.4-10.8)
[2017-11-26 07:41] LABS: Calcium 8.5 mg/dL (8.5-10.1); Potassium 3.4 mmol/L (3.5-5.1)
[2017-11-26 08:00] VITALS: BP 114/74
[2017-11-26 09:04] VITALS: BP 114/74
[2017-11-26] MEDS: PANTOPRAZOLE 40 MG/10 ML VIAL IV SCH (10:51)
[2017-11-26] MEDS: LEVOFLOXACIN 500MG 100 ML IV SCH (10:51)
[2017-11-26 11:47] VITALS: BP 132/83
[2017-11-26] MEDS ORDERED: POTASSIUM CHL 20 Meq TABLET PO ONE (14:30)
[2017-11-26 16:50] VITALS: BP 122/80
[2017-11-26] MEDS ORDERED: ALPRAZolam 0.25 MG TAB PO ONE (21:00)
[2017-11-27 04:58] VITALS: BP 132/85
[2017-11-27] MEDS: metroNIDAZOLE 500MG/100ML 100 ML IV SCH ×3 (05:05→22:09)
[2017-11-27] MEDS: SODIUM CHLORIDE 0.9% 1,000 ML IV SCH (05:06)
[2017-11-27 06:23] LABS: Basophils # (auto) 0.1 uL; Basophils % (auto) 1.1 % (0.0-2.0); Eosinophils # (auto) 0.2 uL; Eosinophils % (auto) 3.1 % (0.0-7.0); Hemoglobin 14.3 g/dL (12.2-16.2); Lymphocytes # (auto) 1.1 uL; Lymphocytes % (auto) 19.9 % (10.0-50.0); Mean Corpuscular Hemoglobin 31.4 pg (28.0-32.0); Mean Corpuscular Volume 89.6 fL (80.0-100.0); Monocytes # (auto) 0.5 uL; Monocytes % (auto) 9.8 % (0.0-12.0); Neutrophils # (auto) 3.5 uL; Neutrophils % (auto) 66.1 % (37.0-80.0); Nucleated Red Blood Cells % 0.1 %; Platelet Count (auto) 366 10^3/uL (140-450); Red Blood Cells 4.57 10^6/uL (4.0-5.20); Red Cell Distribution Width 13.2 % (11.8-14.3); White Blood Cell 5.3 10^3/uL (4.4-10.8)
[2017-11-27 06:46] LABS: Albumin 2.8 g/dL (3.4-5.0); Bilirubin, Total 0.5 mg/dL (0.2-1.0); Calcium 8.3 mg/dL (8.5-10.1); Potassium 3.8 mmol/L (3.5-5.1); Total Protein 6.8 g/dL (6.4-8.2)
[2017-11-27] MEDS: LEVOFLOXACIN 500MG 100 ML IV SCH (08:00)
[2017-11-27] MEDS: PANTOPRAZOLE 40 MG/10 ML VIAL IV SCH (08:01)
[2017-11-27] MEDS: MORPHINE SULF INJ 2 MG/ML SYRINGE 1ML IV PRN ×3 (08:02→22:14)
[2017-11-27 08:52] VITALS: BP 132/72
[2017-11-27 12:24] VITALS: BP 134/86
[2017-11-27] MEDS ORDERED: cefTRIAXone 1GM/10ml IVPUSH 10 ML IV ONE (16:15)
[2017-11-27] MEDS ORDERED: ZOLPIDEM TARTRATE 5 MG TAB PO PRN (16:45)
[2017-11-27 17:03] VITALS: BP 128/82
[2017-11-27 21:55] VITALS: BP 101/72
[2017-11-28 05:23] VITALS: BP 133/83
[2017-11-28] MEDS: metroNIDAZOLE 500MG/100ML 100 ML IV SCH ×2 (05:53→14:00)
[2017-11-28] MEDS ORDERED: cefTRIAXone 1GM/10ml IVPUSH 10 ML IV SCH (09:00)
[2017-11-28 09:04] VITALS: BP 124/80
[2017-11-28] MEDS: MORPHINE SULF INJ 2 MG/ML SYRINGE 1ML IV PRN ×2 (10:15→14:10)
[2017-11-28] MEDS: PANTOPRAZOLE 40 MG/10 ML VIAL IV SCH (10:29)
[2017-11-28 13:40] VITALS: BP 113/97
== END 2017-11-28 18:57 | disposition home or self-care (01) | DRG 392 ==
LOC: EAST 12:21
PROVIDERS: ADMIT Internal Medicine; ATTEND Internal Medicine
DX: K57.32 Diverticulitis of large intestine without perforation or abscess without bleeding (principal); E66.01 Morbid (severe) obesity due to excess calories; K76.0 Fatty (change of) liver, not elsewhere classified; Z68.41 Body mass index [BMI] 40.0-44.9, adult; Z90.710 Acquired absence of both cervix and uterus
CPT/HCPCS: 36415; 74177; 76705; 80048; 80053; 81001; 82270; 85025; 85610; 85730; 87086; 87088; 87186; C9113; J1956; J3490

== ENCOUNTER 2017-12-18 10:26 | Inpatient (IN) | payer BC ==
[~2017-12-18] VITALS: Ht 162.6 cm; Wt 111.2 kg
[2017-12-18 11:19] VITALS: BP 124/82
[2017-12-18 11:30] VITALS: BP 124/82
[2017-12-18] MEDS ORDERED: METR500T PO (11:38)
[2017-12-18] MEDS ORDERED: CIPR-173 PO (11:38)
[2017-12-18] MEDS ORDERED: HYDROcodone-ACET 5/325MG TAB PO PRN (11:45)
[2017-12-18] MEDS ORDERED: PANTOPRAZOLE 40 MG/10 ML VIAL IV ONE (11:45)
[2017-12-18] MEDS ORDERED: ONDANSETRON HCL 4 MG/2 ML VIAL IV PRN (11:45)
[2017-12-18] MEDS ORDERED: cefTRIAXone 1GM/10ml IVPUSH 10 ML IV ONE (11:45)
[2017-12-18] MEDS: KETOROLAC TROMETH 30 MG/ML 1ML VIAL IV PRN ×2 (11:51→18:29)
[2017-12-18] MEDS: SODIUM CHLORIDE 0.9% 1,000 ML IV SCH ×2 (11:51→21:45)
[2017-12-18 12:22] LABS: Basophils # (auto) 0.1 uL; Basophils % (auto) 0.6 % (0.0-2.0); Eosinophils # (auto) 0.1 uL; Hematocrit 43.8 % (36.0-46.0); Hemoglobin 14.9 g/dL (12.2-16.2); Lymphocytes % (auto) 10.4 % (10.0-50.0); Mean Corpuscular Hgb Conc. 34.1 g/dL (32.0-36.0); Monocytes # (auto) 0.8 uL; Monocytes % (auto) 9.1 % (0.0-12.0); Neutrophils # (auto) 7.3 uL; Neutrophils % (auto) 78.9 % (37.0-80.0); Nucleated Red Blood Cells % 0.1 %; Platelet Count (auto) 213 10^3/uL (140-450); Red Blood Cells 4.81 10^6/uL (4.0-5.20); Red Cell Distribution Width 13.7 % (11.8-14.3); White Blood Cell 9.2 10^3/uL (4.4-10.8)
[2017-12-18 12:39] LABS: INR 0.99 (0.9-1.15); Partial Thromboplastin Time 30.1 sec (22.64-33.71); Prothrombin Time 10.8 sec (9.37-12.3)
[2017-12-18 12:55] LABS: Albumin 3.2 g/dL (3.4-5.0); BUN/Creatinine Ratio 10.9; Bilirubin, Total 0.7 mg/dL (0.2-1.0); Calcium 8.6 mg/dL (8.5-10.1); Total Protein 7.5 g/dL (6.4-8.2)
[2017-12-18] MEDS: metroNIDAZOLE 500MG/100ML 100 ML IV SCH ×2 (13:08→23:04)
[2017-12-18 16:30] VITALS: BP 109/63
[2017-12-18] MEDS ORDERED: PROMETHAZINE HCL 25 MG/ML 1ML ONE (17:24)
[2017-12-18 22:00] VITALS: BP 133/77
[2017-12-19] MEDS: KETOROLAC TROMETH 30 MG/ML 1ML VIAL IV PRN ×3 (02:16→21:35)
[2017-12-19 05:12] VITALS: BP 114/83
[2017-12-19] MEDS: metroNIDAZOLE 500MG/100ML 100 ML IV SCH ×3 (05:56→21:34)
[2017-12-19 06:40] LABS: Urine WBC None Seen /hpf (0 - 5)
[2017-12-19 07:20] LABS: Urine Bacteria NONE SEEN /hpf (None Seen); Urine Blood 1+ /uL (Negative); Urine Mucus FEW (None Seen); Urine Specific Gravity 1.011 (1.001-1.035)
[2017-12-19] MEDS: cefTRIAXone 1GM/10ml IVPUSH 10 ML IV SCH (08:41)
[2017-12-19] MEDS: PROMETHAZINE HCL 25 MG/ML 1ML IV PRN ×2 (08:41→21:34)
[2017-12-19 08:56] VITALS: BP 117/84
[2017-12-19] MEDS ORDERED: PANTOPRAZOLE 40 MG/10 ML VIAL IV SCH (10:00)
[2017-12-19] MEDS: SODIUM CHLORIDE 0.9% 1,000 ML IV SCH ×2 (10:02→19:34)
[2017-12-19 13:00] VITALS: BP 119/69
[2017-12-19 16:26] VITALS: BP 127/69
[2017-12-19 22:00] VITALS: BP 133/83
[2017-12-20] MEDS: SODIUM CHLORIDE 0.9% 1,000 ML IV SCH (03:45)
[2017-12-20] MEDS: PROMETHAZINE HCL 25 MG/ML 1ML IV PRN (04:47)
[2017-12-20] MEDS: KETOROLAC TROMETH 30 MG/ML 1ML VIAL IV PRN (04:47)
[2017-12-20 05:10] LABS: Basophils # (auto) 0 uL; Basophils % (auto) 0.5 % (0.0-2.0); Eosinophils # (auto) 0.1 uL; Eosinophils % (auto) 1.8 % (0.0-7.0); Hematocrit 41.4 % (36.0-46.0); Lymphocytes % (auto) 16.3 % (10.0-50.0); Mean Corpuscular Hgb Conc. 33.7 g/dL (32.0-36.0); Monocytes # (auto) 0.4 uL; Monocytes % (auto) 6.9 % (0.0-12.0); Neutrophils # (auto) 4.6 uL; Neutrophils % (auto) 74.5 % (37.0-80.0); Platelet Count (auto) 218 10^3/uL (140-450); Red Cell Distribution Width 14.1 % (11.8-14.3); White Blood Cell 6.1 10^3/uL (4.4-10.8)
[2017-12-20] MEDS: metroNIDAZOLE 500MG/100ML 100 ML IV SCH (05:47)
[2017-12-20 05:53] VITALS: BP 106/69
[2017-12-20 08:00] VITALS: BP 149/93
[2017-12-20 09:38] VITALS: BP 149/93
[2017-12-20] MEDS: cefTRIAXone 1GM/10ml IVPUSH 10 ML IV SCH (09:40)
[2017-12-20] MEDS ORDERED: PANTOPRAZOLE 40 MG TAB PO SCH (10:00)
[2017-12-20 10:19] VITALS: BP 149/93
== END 2017-12-20 11:52 | disposition home or self-care (01) | DRG 392 ==
LOC: CENTRAL 10:35
PROVIDERS: ADMIT Internal Medicine; ATTEND Internal Medicine
DX: K57.32 Diverticulitis of large intestine without perforation or abscess without bleeding (principal); E66.01 Morbid (severe) obesity due to excess calories; Z68.41 Body mass index [BMI] 40.0-44.9, adult; Z90.710 Acquired absence of both cervix and uterus
CPT/HCPCS: 36415; 74176; 80053; 81001; 83690; 85025; 85610; 85730; 87081; C9113; J1885; J2405; J3490

== ENCOUNTER 2018-04-16 09:27 | Emergency (ER) | payer BC, OTHER ==
[~2018-04-16] VITALS: Ht 162.6 cm; Wt 102.1 kg
[~2018-04-16 09:27] MED LIST changes: -CEPH-37 PO
[2018-04-16 09:52] VITALS: BP 129/86
[2018-04-16] MEDS ORDERED: KETOROLAC TROMETH 60MG/2ML VIAL IM ONE (10:45)
== END 2018-04-16 11:05 | disposition home or self-care (01) ==
LOC: ER 09:32
DX: S93.402A Sprain of unspecified ligament of left ankle, initial encounter (principal); K21.9 Gastro-esophageal reflux disease without esophagitis; E66.9 Obesity, unspecified; Z68.38 Body mass index [BMI] 38.0-38.9, adult; Z90.49 Acquired absence of other specified parts of digestive tract; Z90.710 Acquired absence of both cervix and uterus; W01.198A Fall on same level from slipping, tripping and stumbling with subsequent striking against other object, initial encounter; Y93.89 Activity, other specified; Y92.89 Other specified places as the place of occurrence of the external cause; Y99.0 Civilian activity done for income or pay
CPT/HCPCS: 73610; 99284; J1885

== ENCOUNTER 2018-06-26 07:53 | Day surgery (SDC) | payer BC ==
[2018-06-23 12:43] LABS: Basophils # (auto) 0 uL; Basophils % (auto) 0.5 % (0.0-2.0); Eosinophils # (auto) 0.2 uL; Eosinophils % (auto) 2.3 % (0.0-7.0); Hematocrit 46.3 % (36.0-46.0); Hemoglobin 15.8 g/dL (12.2-16.2); Lymphocytes # (auto) 1.7 uL; Lymphocytes % (auto) 25.9 % (10.0-50.0); Mean Corpuscular Hemoglobin 32.6 pg (28.0-32.0); Mean Corpuscular Hgb Conc. 34.1 g/dL (32.0-36.0); Mean Corpuscular Volume 95.6 fL (80.0-100.0); Monocytes # (auto) 0.3 uL; Monocytes % (auto) 4.3 % (0.0-12.0); Neutrophils # (auto) 4.4 uL; Platelet Count (auto) 255 10^3/uL (140-450); Red Blood Cells 4.84 10^6/uL (4.0-5.20); White Blood Cell 6.6 10^3/uL (4.4-10.8)
[2018-06-23 13:14] LABS: INR 0.91 (0.9-1.15); Partial Thromboplastin Time 29.2 sec (23.78-33.04); Prothrombin Time 9.8 sec (9.27-12.13)
[~2018-06-26] VITALS: Ht 162.6 cm; Wt 108.9 kg
[2018-06-26] MEDS ORDERED: FLUMAZENIL 0.1 MG/ML INJ 10ML MDV IV ONE (08:06)
[2018-06-26] MEDS ORDERED: SODIUM CHLORIDE LOCK 10 ML ONE (08:06)
[2018-06-26] MEDS ORDERED: NALOXONE HCL 0.4 MG/ML VIAL ONE (08:06)
[2018-06-26] MEDS ORDERED: diphenhdrAMINE HCL 50 MG/1 ML VL ONE (08:07)
[2018-06-26] MEDS: MIDAZOLAM HCL 5 MG/ML-1ML VIAL ONE ×3 (09:05→09:11)
[2018-06-26] MEDS: fentaNYL CITRATE 100 MCG/2 ML VL ONE ×3 (09:05→09:11)
[2018-06-26 10:20] VITALS: BP 137/90
== END 2018-06-26 10:20 | disposition home or self-care (01) ==
LOC: GI 07:53
PROVIDERS: ATTEND Internal Medicine Gastroenterology
DX: D12.5 Benign neoplasm of sigmoid colon (principal); K63.5 Polyp of colon; K63.89 Other specified diseases of intestine; K52.9 Noninfective gastroenteritis and colitis, unspecified; K57.30 Diverticulosis of large intestine without perforation or abscess without bleeding; K64.8 Other hemorrhoids; K21.9 Gastro-esophageal reflux disease without esophagitis; E66.01 Morbid (severe) obesity due to excess calories; J40 Bronchitis, not specified as acute or chronic; D21.9 Benign neoplasm of connective and other soft tissue, unspecified; F32.9 Major depressive disorder, single episode, unspecified; Z90.710 Acquired absence of both cervix and uterus; Z98.890 Other specified postprocedural states; Z90.49 Acquired absence of other specified parts of digestive tract; Z98.51 Tubal ligation status; Z79.899 Other long term (current) drug therapy; Z68.41 Body mass index [BMI] 40.0-44.9, adult; Z90.721 Acquired absence of ovaries, unilateral; Z82.49 Family history of ischemic heart disease and other diseases of the circulatory system; Z80.0 Family history of malignant neoplasm of digestive organs; Z82.61 Family history of arthritis
CPT/HCPCS: 36415; 45380; 85025; 85610; 85730; 88305; J1200; J2250; J3010; J7030; 99152

== ENCOUNTER → 2018-08-26 | Outpatient (CLI) | payer BC ==
[2018-08-26 09:28] LABS: Basophils # (auto) 0 uL; Basophils % (auto) 0.7 % (0.0-2.0); Eosinophils # (auto) 0.1 uL; Hematocrit 46.5 % (36.0-46.0); Hemoglobin 15.9 g/dL (12.2-16.2); Lymphocytes # (auto) 1.4 uL; Lymphocytes % (auto) 22.6 % (10.0-50.0); Mean Corpuscular Hemoglobin 31.9 pg (28.0-32.0); Mean Corpuscular Hgb Conc. 34.2 g/dL (32.0-36.0); Mean Corpuscular Volume 93.3 fL (80.0-100.0); Monocytes # (auto) 0.3 uL; Monocytes % (auto) 4.9 % (0.0-12.0); Neutrophils # (auto) 4.3 uL; Neutrophils % (auto) 69.8 % (37.0-80.0); Nucleated Red Blood Cells % 0.1 %; Platelet Count (auto) 268 10^3/uL (140-450); Red Blood Cells 4.98 10^6/uL (4.0-5.20); Red Cell Distribution Width 13.3 % (11.8-14.3); White Blood Cell 6.2 10^3/uL (4.4-10.8)
[2018-08-26 10:24] LABS: Albumin 3.3 g/dL (3.4-5.0); BUN/Creatinine Ratio 23.1; Bilirubin, Total 0.8 mg/dL (0.2-1.0); Calcium 8.4 mg/dL (8.5-10.1); Potassium 3.9 mmol/L (3.5-5.1); Total Protein 7.3 g/dL (6.4-8.2)
== END | disposition home or self-care (01) ==
LOC: LAB 07:55
PROVIDERS: ATTEND Internal Medicine
DX: E11.9 Type 2 diabetes mellitus without complications (principal); E03.9 Hypothyroidism, unspecified; K75.81 Nonalcoholic steatohepatitis (NASH)
CPT/HCPCS: 36415; 80053; 80061; 82043; 83036; 84443; 85025

== ENCOUNTER 2018-10-09 10:36 | Inpatient (IN) | payer BC ==
[~2018-10-09] VITALS: Ht 162.6 cm; Wt 118.0 kg
[2018-10-09] MEDS ORDERED: SODIUM CHLORIDE 0.9% 1,000 ML IV ONE ×2 (11:52)
[2018-10-09 11:56] LABS: Basophils # (auto) 0 uL; Basophils % (auto) 0.4 % (0.0-2.0); Eosinophils # (auto) 0.1 uL; Eosinophils % (auto) 0.9 % (0.0-7.0); Hematocrit 49.3 % (36.0-46.0); Hemoglobin 16.7 g/dL (12.2-16.2); Lymphocytes # (auto) 1.2 uL; Lymphocytes % (auto) 12.2 % (10.0-50.0); Mean Corpuscular Hemoglobin 32.4 pg (28.0-32.0); Mean Corpuscular Volume 95.2 fL (80.0-100.0); Monocytes # (auto) 0.2 uL; Monocytes % (auto) 2.4 % (0.0-12.0); Neutrophils # (auto) 8.4 uL; Neutrophils % (auto) 84.1 % (37.0-80.0); Nucleated Red Blood Cells % 0.1 %; Platelet Count (auto) 254 10^3/uL (140-450); Red Blood Cells 5.18 10^6/uL (4.0-5.20); Red Cell Distribution Width 13.6 % (11.8-14.3)
[2018-10-09] MEDS ORDERED: ONDANSETRON HCL 4 MG/2 ML VIAL IV ONE (12:00)
[2018-10-09] MEDS ORDERED: PIPERACILLIN-TAZOB 3.375GM 100 ML IV ONE (12:00)
[2018-10-09] MEDS ORDERED: metroNIDAZOLE 500MG/100ML 100 ML IV ONE (12:00)
[2018-10-09] MEDS ORDERED: MORPHINE SULFATE 4 MG/ML SYR/VIAL IV ONE (12:00)
[2018-10-09 12:13] LABS: Alanine Aminotransferase 120 U/L (13-56); Albumin 3.4 g/dL (3.4-5.0); Amylase 86 U/L (25-115); Anion Gap 8 (5-15); Aspartate Aminotransferase 128 U/L (15-37); BUN/Creatinine Ratio 18.8; Blood Urea Nitrogen 12 mg/dL (7-18); Calcium 8.8 mg/dL (8.5-10.1); Carbon Dioxide 23 mmol/L (21-32); Chloride 107 mmol/L (98-107); GFR African American 132 mL/min; GFR Non-African American 109 mL/min; Glucose 119 mg/dL (74-106); Lipase 146 U/L (73-393); Potassium 3.8 mmol/L (3.5-5.1); Sodium 138 mmol/L (136-145)
[2018-10-09 12:18] LABS: Alkaline Phosphatase 149 U/L (45-117); Bilirubin, Total 0.6 mg/dL (0.2-1.0); Total Protein 7.7 g/dL (6.4-8.2)
[2018-10-09] MEDS ORDERED: SODIUM CHLORIDE 0.9% 1,000 ML IV SCH (12:37)
[2018-10-09] MEDS ORDERED: cefTRIAXone 1GM/50ML D5W 50 ML IV ONE (12:45)
[2018-10-09] MEDS ORDERED: LORazepam 0.5 MG TAB PO PRN (12:45)
[2018-10-09] MEDS ORDERED: TEMAZEPAM 15 MG CAP PO PRN (12:45)
[2018-10-09] MEDS ORDERED: NITROGLYCERIN 0.4 MG SL TAB SL PRN (12:45)
[2018-10-09] MEDS ORDERED: MORPHINE SULFATE 4 MG/ML SYR/VIAL IV PRN ×2 (12:45)
[2018-10-09 13:02] LABS: Amylase 88 U/L (25-115); Lipase 148 U/L (73-393)
[2018-10-09] MEDS: PROMETHAZINE HCL 25 MG/ML 1ML IV PRN ×2 (15:00→20:44)
[2018-10-09] MEDS: MORPHINE SULFATE 4 MG/ML SYR/VIAL IV PRN (15:00)
[2018-10-09 15:31] LABS: Urine WBC None Seen /hpf (0 - 5)
[2018-10-09 15:49] LABS: Urine Bacteria FEW /hpf (None Seen); Urine Blood TRACE /uL (Negative); Urine Specific Gravity 1.017 (1.001-1.035)
[2018-10-09 16:34] VITALS: BP 131/87
[2018-10-09] MEDS: SODIUM CHLORIDE 0.9% 1,000 ML IV SCH (16:58)
[2018-10-09] MEDS: metroNIDAZOLE 500MG/100ML 100 ML IV SCH (17:41)
[2018-10-09 21:54] VITALS: BP 148/84
[2018-10-09] MEDS ORDERED: FAMOTIDINE 20 MG TAB PO SCH (22:00)
[2018-10-09] MEDS ORDERED: ASACOL HD 800 MG PO SCH (22:00)
[2018-10-09] MEDS: MESALAMINE 400mg Delayed Release Cap PO SCH (22:37)
[2018-10-09] MEDS: PANTOPRAZOLE 40 MG TAB PO SCH (22:37)
[2018-10-10] MEDS: metroNIDAZOLE 500MG/100ML 100 ML IV SCH ×3 (00:36→12:20)
[2018-10-10] MEDS: SODIUM CHLORIDE 0.9% 1,000 ML IV SCH (04:40)
[2018-10-10 05:06] VITALS: BP 111/62
[2018-10-10 05:58] LABS: Potassium 3.5 mmol/L (3.5-5.1)
[2018-10-10 06:09] LABS: Albumin 2.8 g/dL (3.4-5.0); BUN/Creatinine Ratio 13.3; Bilirubin, Total 0.8 mg/dL (0.2-1.0); Total Protein 6.3 g/dL (6.4-8.2)
[2018-10-10] MEDS: MESALAMINE 400mg Delayed Release Cap PO SCH (06:21)
[2018-10-10 08:07] VITALS: BP 94/55
[2018-10-10] MEDS ORDERED: cefTRIAXone 1GM/50ML D5W 50 ML IV SCH (09:00)
[2018-10-10] MEDS: PANTOPRAZOLE 40 MG TAB PO SCH (09:16)
[2018-10-10] MEDS: MORPHINE SULFATE 4 MG/ML SYR/VIAL IV PRN (09:30)
[2018-10-10 12:18] VITALS: BP 100/63
[2018-10-10] MEDS ORDERED: MESALAMINE 400mg Delayed Release Cap PO SCH (22:00)
== END 2018-10-10 14:00 | disposition home or self-care (01) | DRG 392 ==
LOC: ER 10:40 → TELE 11:56 → TELE-EAST 14:40
PROVIDERS: ADMIT Internal Medicine; ATTEND Internal Medicine
DX: K57.32 Diverticulitis of large intestine without perforation or abscess without bleeding (principal); Z68.41 Body mass index [BMI] 40.0-44.9, adult; E71.312 Short chain acyl CoA dehydrogenase deficiency; E66.01 Morbid (severe) obesity due to excess calories; K76.0 Fatty (change of) liver, not elsewhere classified; K57.90 Diverticulosis of intestine, part unspecified, without perforation or abscess without bleeding; K21.9 Gastro-esophageal reflux disease without esophagitis; Z80.0 Family history of malignant neoplasm of digestive organs; Z82.49 Family history of ischemic heart disease and other diseases of the circulatory system; Z90.710 Acquired absence of both cervix and uterus; Z90.49 Acquired absence of other specified parts of digestive tract
CPT/HCPCS: 36415; 74176; 80053; 81001; 82150; 83605; 83690; 84484; 85025; 87040; 96361; 96374; 96375; G0378; J0696; J2405; J2543; J3490

== ENCOUNTER 2019-06-30 12:10 | Emergency (ER) | payer BC ==
[~2019-06-30] VITALS: Ht 162.6 cm; Wt 108.9 kg
[2019-06-30 12:48] VITALS: BP 137/84
[2019-06-30] MEDS ORDERED: KETOROLAC TROMETH 60MG/2ML VIAL IM ONE (13:30)
== END 2019-06-30 14:38 | disposition home or self-care (01) ==
LOC: ER 12:10
DX: S39.012A Strain of muscle, fascia and tendon of lower back, initial encounter (principal); S83.92XA Sprain of unspecified site of left knee, initial encounter; S93.402A Sprain of unspecified ligament of left ankle, initial encounter; Z90.49 Acquired absence of other specified parts of digestive tract; Z90.710 Acquired absence of both cervix and uterus; W19.XXXA Unspecified fall, initial encounter; Y93.89 Activity, other specified; Y99.8 Other external cause status; Y92.89 Other specified places as the place of occurrence of the external cause
CPT/HCPCS: 72100; 73562; 73610; 96372; 99283; J1885

== ENCOUNTER → 2020-06-13 | Outpatient (CLI) | payer BC ==
[~2020-06-13] MED LIST changes: +LEVO150T10 PO; +SUCR1TAB PO
[2020-06-13 12:38] LABS: Eosinophils # (auto) 0.2 10 ^3/uL (0-0.8); Hemoglobin 16.7 g/dL (12.2-16.2); Monocytes # (auto) 0.3 10 ^3/uL (0-1.3); Nucleated Red Blood Cells % 0.1 %; Red Cell Distribution Width 15.2 % (11.8-14.3)
[2020-06-13 12:39] LABS: Basophils # (auto) 0 10 ^3/uL (0-0.2); Basophils % (auto) 0.4 % (0.0-2.0); Eosinophils % (auto) 3.3 % (0.0-7.0); Hematocrit 49.1 % (36.0-46.0); Lymphocytes # (auto) 1.9 10 ^3/uL (0.4-5.4); Lymphocytes % (auto) 29.8 % (10.0-50.0); Mean Corpuscular Hemoglobin 34.6 pg (28.0-32.0); Mean Corpuscular Hgb Conc. 34.1 g/dL (32.0-36.0); Mean Corpuscular Volume 101.7 fL (80.0-100.0); Monocytes % (auto) 5.3 % (0.0-12.0); Neutrophils % (auto) 61.2 % (37.0-80.0); Platelet Count (auto) 272 10^3/uL (140-450); Red Blood Cells 4.83 10^6/uL (4.0-5.20); White Blood Cell 6.5 10^3/uL (4.4-10.8)
[2020-06-13 13:03] LABS: Albumin 3.4 g/dL (3.4-5.0); Calcium 9.1 mg/dL (8.5-10.1); Potassium 4.3 mmol/L (3.5-5.1)
[2020-06-13 13:07] LABS: Bilirubin, Total 0.6 mg/dL (0.2-1.0)
== END | disposition home or self-care (01) ==
LOC: LAB 12:23 → MERGE 12:23
PROVIDERS: ATTEND Internal Medicine
DX: E03.9 Hypothyroidism, unspecified (principal); K27.0 Acute peptic ulcer, site unspecified, with hemorrhage; E55.9 Vitamin D deficiency, unspecified
CPT/HCPCS: 36415; 80053; 80061; 82043; 82306; 82728; 83036; 84443; 85025

== ENCOUNTER 2020-06-15 16:27 | Inpatient (IN) | payer BC ==
[~2020-06-15] VITALS: Ht 162.6 cm; Wt 124.7 kg
[~2020-06-15 16:27] MED LIST changes: -LEVO150T10 PO; -SUCR1TAB PO
[2020-06-15] MEDS ORDERED: ONDANSETRON HCL 4 MG/2 ML VIAL ONE (17:01)
[2020-06-15] MEDS ORDERED: PANTOPRAZOLE 40 MG/10 ML VIAL INJ IV STA (17:07)
[2020-06-15] MEDS ORDERED: SODIUM CHLORIDE 0.9% 500 ML IVB ONE (17:07)
[2020-06-15] MEDS ORDERED: MORPHINE SULFATE 4 MG/ML SYR/VIAL IV ONE (17:15)
[2020-06-15] MEDS ORDERED: ONDANSETRON HCL 4 MG/2 ML VIAL IV ONE (17:15)
[2020-06-15 17:34] LABS: Eosinophils # (auto) 0.1 10 ^3/uL (0-0.8); Lymphocytes # (auto) 1.5 10 ^3/uL (0.4-5.4); Lymphocytes % (auto) 20.3 % (10.0-50.0); Monocytes # (auto) 0.4 10 ^3/uL (0-1.3); Neutrophils # (auto) 5.4 10 ^3/uL (1.6-8.6); Platelet Count (auto) 246 10^3/uL (140-450)
[2020-06-15 17:36] LABS: Basophils # (auto) 0 10 ^3/uL (0-0.2); Basophils % (auto) 0.2 % (0.0-2.0); Eosinophils % (auto) 1.7 % (0.0-7.0); Hematocrit 46.3 % (36.0-46.0); Mean Corpuscular Hgb Conc. 34.5 g/dL (32.0-36.0); Mean Corpuscular Volume 101.5 fL (80.0-100.0); Monocytes % (auto) 5.6 % (0.0-12.0); Neutrophils % (auto) 72.2 % (37.0-80.0); Nucleated Red Blood Cells % 0.6 %; Red Blood Cells 4.57 10^6/uL (4.0-5.20); Red Cell Distribution Width 15.2 % (11.8-14.3); White Blood Cell 7.4 10^3/uL (4.4-10.8)
[2020-06-15 17:42] LABS: Albumin 3.5 g/dL (3.4-5.0); Potassium 3.6 mmol/L (3.5-5.1)
[2020-06-15 17:46] LABS: BUN/Creatinine Ratio 14.9; Total Protein 7.9 g/dL (6.4-8.2)
[2020-06-15] MEDS: SODIUM CHLORIDE 0.9% 1,000 ML IV SCH (21:25)
[2020-06-15 22:00] VITALS: BP 132/75
--- NOTE | 2020-06-15 22:11 | NUR ---
MS admit from ER LUCIE SUMMERS M admitted to tele/MS. SBAR not received. Patient oriented to LOUISE LÓPEZ, RN primary RN, unit, room, bed, and unit policies regarding patient care and visiting hours. Safety measures in place bed in lowest position, side rails up x2, and call light within reach. Patient weighed by bedscale and encouraged to call if they need something. All questions and concerns addressed, patient verbalized understanding.
[2020-06-15 22:18] LABS: INR 1.06 (0.9-1.15); Partial Thromboplastin Time 27.9 sec (23.64-32.05)
[2020-06-15 22:30] VITALS: BP 132/75
[2020-06-15] MEDS: MORPHINE SULFATE 4 MG/ML SYR/VIAL IV PRN (22:57)
[2020-06-15] MEDS: ONDANSETRON HCL 4 MG/2 ML VIAL IV PRN (22:57)
--- NOTE | 2020-06-16 01:00 | NUR ---
Right AC IV access noted to be leaking and bleeding. IV catheter removed. 22 G IV catheter inserted into the right hand by Lucy REGALADO. New IV patent, intact, clean and dry. Pt tolerated well. Will continue to monitor.
[2020-06-16] MEDS ORDERED: LEVO150T10 PO (03:04)
[2020-06-16] MEDS ORDERED: SUCR1TAB PO (03:04)
[2020-06-16 05:00] VITALS: BP 139/84
[2020-06-16] MEDS: MORPHINE SULFATE 4 MG/ML SYR/VIAL IV PRN (06:10)
[2020-06-16 06:32] LABS: Eosinophils # (auto) 0.1 10 ^3/uL (0-0.8); Hemoglobin 15.1 g/dL (12.2-16.2); Lymphocytes # (auto) 1.2 10 ^3/uL (0.4-5.4); Monocytes # (auto) 0.4 10 ^3/uL (0-1.3); Red Cell Distribution Width 15.1 % (11.8-14.3)
[2020-06-16 06:35] LABS: Basophils # (auto) 0 10 ^3/uL (0-0.2); Basophils % (auto) 0.2 % (0.0-2.0); Hematocrit 44.1 % (36.0-46.0); Lymphocytes % (auto) 18.9 % (10.0-50.0); Mean Corpuscular Hemoglobin 34.8 pg (28.0-32.0); Mean Corpuscular Hgb Conc. 34.2 g/dL (32.0-36.0); Mean Corpuscular Volume 101.8 fL (80.0-100.0); Monocytes % (auto) 6.2 % (0.0-12.0); Neutrophils # (auto) 4.7 10 ^3/uL (1.6-8.6); Neutrophils % (auto) 72.7 % (37.0-80.0); Nucleated Red Blood Cells % 0.3 %; Platelet Count (auto) 216 10^3/uL (140-450); Red Blood Cells 4.33 10^6/uL (4.0-5.20); White Blood Cell 6.4 10^3/uL (4.4-10.8)
[2020-06-16 06:47] LABS: BUN/Creatinine Ratio 17.5; Calcium 8.7 mg/dL (8.5-10.1); Potassium 3.6 mmol/L (3.5-5.1)
[2020-06-16 09:00] VITALS: BP 114/78
[2020-06-16] MEDS ORDERED: MAGNESIUM CITRATE SOLUTION 300 ML BTL PO ONE (09:30)
[2020-06-16] MEDS ORDERED: MORPHINE SULFATE 4 MG/ML SYR/VIAL IV PRN (09:30)
[2020-06-16] MEDS: SODIUM CHLORIDE 0.9% 1,000 ML IV SCH ×2 (09:48→21:09)
[2020-06-16] MEDS: ONDANSETRON HCL 4 MG/2 ML VIAL IV PRN ×3 (09:48→23:28)
[2020-06-16] MEDS: MORPHINE SULF INJ 2 MG/ML SYRINGE 1ML IV PRN ×3 (09:49→23:28)
[2020-06-16] MEDS: ACETAMINOPHEN 325 MG TAB PO PRN (10:00)
[2020-06-16] MEDS: PANTOPRAZOLE 40 MG/10 ML VIAL INJ IV SCH ×2 (10:00→21:09)
[2020-06-16] MEDS ORDERED: PANTOPRAZOLE 40 MG/10 ML VIAL INJ IV SCH (10:00)
[2020-06-16] MEDS ORDERED: LACTULOSE 20Gm/30ML SOLN PO PRN (10:00)
--- NOTE | 2020-06-16 10:11 | NUR ---
EKG 12 leads done, placed in the chart.
--- NOTE | 2020-06-16 11:04 | NUR ---
Jarred sent to the lab.
[2020-06-16] MEDS: SUCRALFATE 1 GM/10 ML ORAL SUSP PO SCH ×3 (11:51→21:10)
[2020-06-16] MEDS: HYOSCYAMINE SULF 0.125 MG ODT TAB PO PRN ×3 (12:53→22:15)
[2020-06-16 13:00] VITALS: BP 141/84
[2020-06-16 16:51] VITALS: BP 141/72
--- NOTE | 2020-06-16 18:49 | NUR ---
UA SENT TO LAB.
[2020-06-16 18:55] LABS: Urine WBC None Seen /hpf (0 - 5)
[2020-06-16 19:15] LABS: Urine Bacteria NONE SEEN /hpf (None Seen); Urine Blood Negative /uL (Negative); Urine Mucus FEW (None Seen); Urine Specific Gravity 1.022 (1.001-1.035)
[2020-06-16 22:00] VITALS: BP 132/96
--- NOTE | 2020-06-16 23:00 | NUR ---
IV removal and insertion IV to right hand noted to be infiltrated, DC'd with clean sterile technique, catheter fully intact. Pressure dressing applied to site. Patient tolerated well. IV access obtained, via clean sterile technique by inserting 22 gauge catheter to patient's left wrist by Sherrie REGALADO after multiple attempts. IV secured properly. No trauma to site. Patient tolerated well. Normal saline continuing to infuse as ordered.
[2020-06-17 05:47] VITALS: BP 121/75
[2020-06-17] MEDS: SUCRALFATE 1 GM/10 ML ORAL SUSP PO SCH ×4 (06:49→22:21)
--- NOTE | 2020-06-17 07:15 | NUR ---
Closing Note Patient lying in bed, eyes closed, respirations even and unlabored, appears asleep. Pt. awakens to name and touch. Bed in lowest locked position, side rails up x2, call light within reach. No s/s of distress. Care endorsed to dayshift RN.
--- NOTE | 2020-06-17 08:00 | NUR ---
Opening Shift Note Assumed care of patient, asleep but easily aroused. No S/S of distress/SOB. Instructed on POC and to call for assist PRN, will continue to monitor for changes Q1hr and PRN.
[2020-06-17] MEDS: ACETAMINOPHEN 325 MG TAB PO PRN (08:21)
--- NOTE | 2020-06-17 08:21 | NUR ---
Patient complained of having a headache and requested Tylenol for same. Medicated with Tylenol for headache, will reassess as per protocol.
[2020-06-17] MEDS: PANTOPRAZOLE 40 MG/10 ML VIAL INJ IV SCH ×2 (10:43→22:20)
[2020-06-17] MEDS: SODIUM CHLORIDE 0.9% 1,000 ML IV SCH ×2 (10:43→22:21)
[2020-06-17] MEDS: MORPHINE SULF INJ 2 MG/ML SYRINGE 1ML IV PRN ×3 (11:06→22:21)
[2020-06-17] MEDS: ONDANSETRON HCL 4 MG/2 ML VIAL IV PRN ×3 (11:06→22:21)
[2020-06-17 13:00] VITALS: BP 112/66
[2020-06-17] MEDS: HYOSCYAMINE SULF 0.125 MG ODT TAB PO PRN (14:26)
[2020-06-17 16:38] VITALS: BP 122/73
[2020-06-17 22:00] VITALS: BP 138/72
[2020-06-18 05:00] VITALS: BP 128/73
[2020-06-18] MEDS: LEVOTHYROXINE SODIUM 50 MCG TAB PO SCH (06:50)
[2020-06-18] MEDS: SUCRALFATE 1 GM/10 ML ORAL SUSP PO SCH ×4 (06:50→23:41)
[2020-06-18 08:37] VITALS: BP 108/69
[2020-06-18] MEDS ORDERED: GOLYTELY 4L KIT PO ONE (10:00)
[2020-06-18] MEDS: PANTOPRAZOLE 40 MG/10 ML VIAL INJ IV SCH ×2 (10:15→23:41)
[2020-06-18] MEDS: SODIUM CHLORIDE 0.9% 1,000 ML IV SCH ×2 (11:46→23:41)
[2020-06-18] MEDS: SIMETHICONE 40 MG/0.6 ML ORAL DROP PO SCH ×3 (11:52→23:41)
[2020-06-18] MEDS: ONDANSETRON HCL 4 MG/2 ML VIAL IV PRN ×2 (12:36→19:51)
[2020-06-18] MEDS: MORPHINE SULF INJ 2 MG/ML SYRINGE 1ML IV PRN ×2 (12:36→19:51)
--- NOTE | 2020-06-18 12:36 | NUR ---
Pain Patient complained of pain 6-05/26. Medicated with morphine and Zofran for nausea. Will reassess as per protocol.
[2020-06-18 13:00] VITALS: BP_SYST 136
--- NOTE | 2020-06-18 13:48 | NUR ---
Est Energy needs 9101-0496 kcal (11-14kcal/kg BW 127.8kg) Est protein needs 55-82g (1-1.5g/kg IBW 55kg) Will reassess prn. Addendum: 06/18/20 at [address] Amended: Links added.
[2020-06-18 17:00] VITALS: BP 122/78
--- NOTE | 2020-06-18 17:30 | NUR ---
BM Patient stated that she has been having bowel movements, they are not clear but she has gone four times since she started the Golytely prep.
[2020-06-18 22:00] VITALS: BP 121/69
[2020-06-19] MEDS: MORPHINE SULF INJ 2 MG/ML SYRINGE 1ML IV PRN ×2 (00:02→14:47)
[2020-06-19] MEDS: ONDANSETRON HCL 4 MG/2 ML VIAL IV PRN ×2 (00:02→14:47)
[2020-06-19] MEDS ORDERED: GOLYTELY 4L KIT PO ONE (04:00)
[2020-06-19 05:00] VITALS: BP 145/75
[2020-06-19] MEDS: SUCRALFATE 1 GM/10 ML ORAL SUSP PO SCH ×4 (06:20→22:02)
[2020-06-19] MEDS: SIMETHICONE 40 MG/0.6 ML ORAL DROP PO SCH ×4 (06:44→22:03)
[2020-06-19] MEDS: LEVOTHYROXINE SODIUM 50 MCG TAB PO SCH (06:44)
--- NOTE | 2020-06-19 06:55 | NUR ---
Closing Note Patient lying in bed, awake and alert. Golytely prep completed, patient reports bowel movements are clear with small "flakes of green chunks in it." Patient has had multiple bowel movements throughout shift, reports she "can't even remember how many [she's] had there were so many." Bed in lowest locked position, side rails up x2, call light within reach. No s/s of distress. Will endorse care to dayshift RN.
--- NOTE | 2020-06-19 07:30 | NUR ---
Opening Shift Note Assuming care of patient at this time. Patient is awake and alert. Patient complains of abdominal pain, 6/10. Patient shows no signs or symptoms of distress or shortness of breath. Instructed patient on the plan of care for today and to call for assistance as needed. Call light within reach. Will continue to round hourly and as needed.
[2020-06-19] MEDS ORDERED: GASTROGRAFIN 120 ML SOL ONE (07:37)
[2020-06-19 08:57] VITALS: BP 116/46
[2020-06-19] MEDS ORDERED: SODIUM CHLORIDE LOCK 10 ML ONE (10:34)
[2020-06-19] MEDS ORDERED: NALOXONE HCL 0.4 MG/ML VIAL ONE (10:34)
[2020-06-19] MEDS ORDERED: FLUMAZENIL 0.1 MG/ML INJ 10ML MDV IV ONE (10:34)
[2020-06-19] MEDS ORDERED: LIDOCAINE VISCOUS 2% 15ML UD ONE (10:34)
[2020-06-19] MEDS ORDERED: diphenhdrAMINE HCL 50 MG/1 ML VL ONE (10:35)
[2020-06-19] MEDS: PANTOPRAZOLE 40 MG/10 ML VIAL INJ IV SCH ×2 (10:47→22:02)
--- NOTE | 2020-06-19 11:30 | NUR ---
Patient taken to OR Patient taken to OR at this time.
[2020-06-19] MEDS: SODIUM CHLORIDE 0.9% 1,000 ML IV SCH (12:10)
[2020-06-19] MEDS: fentaNYL CITRATE 100 MCG/2 ML VL ONE ×5 (12:38→12:55)
[2020-06-19] MEDS: MIDAZOLAM HCL 5 MG/ML-1ML VIAL ONE ×3 (12:38→12:49)
[2020-06-19] MEDS ORDERED: MIDAZOLAM HCL 5 MG/ML-1ML VIAL ONE (12:44)
[2020-06-19 13:00] VITALS: BP 126/77
[2020-06-19] MEDS: metroNIDAZOLE 500MG/100ML 100 ML IV SCH ×2 (14:46→22:02)
[2020-06-19 17:00] VITALS: BP 121/67
--- NOTE | 2020-06-19 19:20 | NUR ---
Opening Shift Note Assuming care of patient at this time. Patient is awake and alert. Patient shows no signs or symptoms of distress or shortness of breath. Instructed patient on the plan of care for today and to call for assistance as needed. Call light within reach. Will continue to round hourly and as needed.
--- NOTE | 2020-06-19 19:28 | NUR ---
Closing Shift Note Patient resting in bed. No distress noted. Report given. Will endorse care to the casino shift manager RN.
[2020-06-19 22:00] VITALS: BP 103/75
[2020-06-20] MEDS: SODIUM CHLORIDE 0.9% 1,000 ML IV SCH ×2 (00:40→14:02)
--- NOTE | 2020-06-20 01:38 | NUR ---
pt called requesting medication to aid in sleeping. pt also stated she spent a good portion of the day napping. Hospitalist was paged to request medication for sleep.
[2020-06-20 05:00] VITALS: BP 102/58
[2020-06-20] MEDS: LEVOTHYROXINE SODIUM 50 MCG TAB PO SCH (06:24)
[2020-06-20] MEDS: SUCRALFATE 1 GM/10 ML ORAL SUSP PO SCH ×2 (06:24→11:30)
[2020-06-20] MEDS: metroNIDAZOLE 500MG/100ML 100 ML IV SCH ×2 (06:25→14:00)
[2020-06-20] MEDS: SIMETHICONE 40 MG/0.6 ML ORAL DROP PO SCH ×2 (06:25→14:02)
[2020-06-20 06:40] LABS: Basophils # (auto) 0.1 10 ^3/uL (0-0.2); Hemoglobin 14.9 g/dL (12.2-16.2); Monocytes # (auto) 0.4 10 ^3/uL (0-1.3)
[2020-06-20 06:42] LABS: Basophils % (auto) 1.2 % (0.0-2.0); Eosinophils # (auto) 0.1 10 ^3/uL (0-0.8); Hematocrit 43.5 % (36.0-46.0); Lymphocytes # (auto) 1.3 10 ^3/uL (0.4-5.4); Lymphocytes % (auto) 23.6 % (10.0-50.0); Mean Corpuscular Hemoglobin 34.8 pg (28.0-32.0); Mean Corpuscular Hgb Conc. 34.1 g/dL (32.0-36.0); Mean Corpuscular Volume 101.9 fL (80.0-100.0); Neutrophils # (auto) 3.6 10 ^3/uL (1.6-8.6); Neutrophils % (auto) 66.2 % (37.0-80.0); Nucleated Red Blood Cells % 0.1 %; Platelet Count (auto) 215 10^3/uL (140-450); Red Blood Cells 4.27 10^6/uL (4.0-5.20); Red Cell Distribution Width 15.1 % (11.8-14.3); White Blood Cell 5.4 10^3/uL (4.4-10.8)
[2020-06-20 07:02] LABS: Calcium 8.4 mg/dL (8.5-10.1); Potassium 3.4 mmol/L (3.5-5.1)
[2020-06-20 07:04] LABS: BUN/Creatinine Ratio 9.8
--- NOTE | 2020-06-20 07:30 | NUR ---
Opening Shift Note Assuming care of patient at this time. Patient is resting with eyes closed at this time. Bed is locked and lowered with side rails up x2. Patient shows no signs or symptoms of distress or shortness of breath. Call light within reach. Will continue to round hourly and as needed.
[2020-06-20 09:00] VITALS: BP 110/65
[2020-06-20] MEDS ORDERED: levoFLOXacin 500 MG TAB PO SCH (10:00)
[2020-06-20] MEDS: PANTOPRAZOLE 40 MG/10 ML VIAL INJ IV SCH (10:24)
[2020-06-20] MEDS ORDERED: POTASSIUM CHL 10 Meq TABLET PO ONE (11:30)
[2020-06-20 12:47] VITALS: BP 109/73
[2020-06-20 13:04] VITALS: BP 109/73
--- NOTE | 2020-06-20 14:03 | NUR ---
Discharge Discharge instructions given as ordered. Encourage to follow up with PMD as instructed. All questions and concerns addressed. Patient verbalized understanding. Medication reconciliation form completed and copy given to patient. IV removed with catheter intact, pressure dressing applied. Patient taken to vehicle via wheelchair with all personal belongings, accompanied by staff. No distress noted at time of departure.
== END 2020-06-20 14:00 | disposition home or self-care (01) | DRG 391 ==
LOC: ER 16:27 → OVERFLOW 16:28 → WEST WING 22:02
PROVIDERS: ADMIT Nurse Practitioner; ATTEND Internal Medicine
PROC: 0DB68ZX Excision of Stomach, Via Natural or Artificial Opening Endoscopic, Diagnostic (ICD-10-PCS; principal; 2020-06-19 12:35)
PROC: 0DBN8ZX Excision of Sigmoid Colon, Via Natural or Artificial Opening Endoscopic, Diagnostic (ICD-10-PCS; 2020-06-19 12:35)
DX: K52.9 Noninfective gastroenteritis and colitis, unspecified (principal); K29.71 Gastritis, unspecified, with bleeding; K29.81 Duodenitis with bleeding; Z68.42 Body mass index [BMI] 45.0-49.9, adult; K21.0 Gastro-esophageal reflux disease with esophagitis; E03.9 Hypothyroidism, unspecified; E66.01 Morbid (severe) obesity due to excess calories; K57.30 Diverticulosis of large intestine without perforation or abscess without bleeding; K59.00 Constipation, unspecified; K76.0 Fatty (change of) liver, not elsewhere classified; Z80.9 Family history of malignant neoplasm, unspecified; Z82.49 Family history of ischemic heart disease and other diseases of the circulatory system; Z90.710 Acquired absence of both cervix and uterus; Z90.49 Acquired absence of other specified parts of digestive tract; Z82.61 Family history of arthritis; Z20.828 Contact with and (suspected) exposure to other viral communicable diseases
CPT/HCPCS: 36415; 43239; 45380; 71045; 74176; 80048; 80053; 81001; 83690; 84443; 84484; 85025; 85610; 85730; 86850; 86900; 86901; 93005; C9113; G0378; J2250; J2405; J3490

== ENCOUNTER 2020-08-10 13:55 | Inpatient (IN) | payer BC ==
[~2020-08-10] VITALS: Ht 162.6 cm; Wt 121.0 kg
[~2020-08-10 13:55] MED LIST changes: +LEVO150T10 PO; +SUCR1TAB PO
[2020-08-10] MEDS ORDERED: SODIUM CHLORIDE 0.9% 1,000 ML IV ONE (14:15)
[2020-08-10 14:50] LABS: Basophils # (auto) 0 10 ^3/uL (0-0.2); Eosinophils # (auto) 0.1 10 ^3/uL (0-0.8); Eosinophils % (auto) 1.5 % (0.0-7.0); Hemoglobin 15.6 g/dL (12.2-16.2); Lymphocytes # (auto) 1.4 10 ^3/uL (0.4-5.4); Monocytes # (auto) 0.3 10 ^3/uL (0-1.3); Red Cell Distribution Width 17.6 % (11.8-14.3)
[2020-08-10 14:51] LABS: Basophils % (auto) 0.2 % (0.0-2.0); Hematocrit 45.3 % (36.0-46.0); Lymphocytes % (auto) 20.6 % (10.0-50.0); Mean Corpuscular Hemoglobin 35.1 pg (28.0-32.0); Mean Corpuscular Hgb Conc. 34.4 g/dL (32.0-36.0); Monocytes % (auto) 4.7 % (0.0-12.0); Neutrophils # (auto) 4.8 10 ^3/uL (1.6-8.6); Nucleated Red Blood Cells % 0.2 %; Platelet Count (auto) 250 10^3/uL (140-450); Red Blood Cells 4.44 10^6/uL (4.0-5.20); White Blood Cell 6.6 10^3/uL (4.4-10.8)
[2020-08-10 15:08] LABS: Alanine Aminotransferase 74 U/L (13-56); Albumin 3.6 g/dL (3.4-5.0); Anion Gap 6 (5-15); Aspartate Aminotransferase 119 U/L (15-37); BUN/Creatinine Ratio 16.9; Blood Urea Nitrogen 11 mg/dL (7-18); Calcium 9.3 mg/dL (8.5-10.1); Carbon Dioxide 27 mmol/L (21-32); Chloride 104 mmol/L (98-107); GFR African American 128 mL/min; GFR Non-African American 106 mL/min; Glucose 100 mg/dL (74-106); Lipase 146 U/L (73-393); Potassium 4.1 mmol/L (3.5-5.1); Sodium 137 mmol/L (136-145)
[2020-08-10 15:13] LABS: Alkaline Phosphatase 116 U/L (45-117); Bilirubin, Total 0.9 mg/dL (0.2-1.0); Total Protein 7.6 g/dL (6.4-8.2)
[2020-08-10] MEDS ORDERED: ONDANSETRON HCL 4 MG/2 ML VIAL IV ONE (15:15)
[2020-08-10 16:59] LABS: Urine Bacteria NONE SEEN /hpf (None Seen); Urine Blood Negative /uL (Negative); Urine Mucus FEW (None Seen); Urine Specific Gravity 1.027 (1.001-1.035); Urine WBC 3 /hpf (0 - 5)
[2020-08-10] MEDS ORDERED: PIPERACILLIN-TAZOB 3.375GM 100 ML IV ONE (17:15)
[2020-08-10] MEDS ORDERED: PROMETHAZINE HCL 25 MG/ML 1ML IV ONE (17:15)
[2020-08-10] MEDS ORDERED: HYDROmorphone HCL 2 MG/ML VL IV ONE (17:15)
[2020-08-10] MEDS ORDERED: TEMAZEPAM 15 MG CAP PO PRN (17:30)
[2020-08-10] MEDS ORDERED: FAMOTIDINE (10MG/ML) 2ML VL IV SCH (17:30)
[2020-08-10] MEDS ORDERED: ACETAMINOPHEN 500 MG TAB PO PRN (17:30)
[2020-08-10] MEDS ORDERED: cefTRIAXone 1GM/50ML D5W 50 ML IV ONE (17:30)
[2020-08-10] MEDS ORDERED: SUCRALFATE 1 GM TAB PO SCH (18:00)
[2020-08-10] MEDS: SODIUM CHLORIDE 0.9% 1,000 ML IV SCH ×2 (18:17→20:08)
[2020-08-10] MEDS: MORPHINE SULF INJ 2 MG/ML SYRINGE 1ML IV PRN (20:32)
--- NOTE | 2020-08-10 21:08 | NUR ---
MS admit from ER Patient admitted to MS with no SBAR received. Patient oriented to primary RN, unit, room, bed, and unit policies regarding patient care and visiting hours. Patient A/O x 4, no s/s of distress/SOB, patient complains of abdominal pain 7/10 on pain scale, will medicate for pain PRN per EMAR. Patient weighed by bed scale, bed in lowest locked position with two side rails raised and call dia within reach. Instructed on POC and encouraged to call for assistance, All questions and concerns addressed, patient verbalized understanding. Will continue to monitor Q1 hr and PRN.
[2020-08-10 22:00] VITALS: BP 139/89
[2020-08-10] MEDS: SUCRALFATE 1 GM TAB PO SCH (22:00)
[2020-08-10] MEDS: PROMETHAZINE HCL 25 MG/ML 1ML IV PRN (22:27)
[2020-08-10] MEDS: metroNIDAZOLE 500MG/100ML 100 ML IV SCH (22:27)
[2020-08-11] MEDS: MORPHINE SULF INJ 2 MG/ML SYRINGE 1ML IV PRN ×5 (00:39→23:08)
[2020-08-11 05:00] VITALS: BP 136/72
[2020-08-11] MEDS: PROMETHAZINE HCL 25 MG/ML 1ML IV PRN ×2 (05:22→23:50)
[2020-08-11] MEDS: metroNIDAZOLE 500MG/100ML 100 ML IV SCH ×3 (05:23→21:38)
[2020-08-11 06:05] LABS: Basophils # (auto) 0 10 ^3/uL (0-0.2); Basophils % (auto) 0.4 % (0.0-2.0); Eosinophils # (auto) 0.1 10 ^3/uL (0-0.8); Eosinophils % (auto) 1.7 % (0.0-7.0); Hematocrit 40.6 % (36.0-46.0); Hemoglobin 14.4 g/dL (12.2-16.2); Lymphocytes # (auto) 1.7 10 ^3/uL (0.4-5.4); Lymphocytes % (auto) 27.4 % (10.0-50.0); Mean Corpuscular Hgb Conc. 35.4 g/dL (32.0-36.0); Mean Corpuscular Volume 101.7 fL (80.0-100.0); Monocytes # (auto) 0.3 10 ^3/uL (0-1.3); Monocytes % (auto) 5.3 % (0.0-12.0); Neutrophils # (auto) 4.1 10 ^3/uL (1.6-8.6); Neutrophils % (auto) 65.2 % (37.0-80.0); Nucleated Red Blood Cells % 0.1 %; Platelet Count (auto) 211 10^3/uL (140-450); Red Cell Distribution Width 17.8 % (11.8-14.3); White Blood Cell 6.3 10^3/uL (4.4-10.8)
[2020-08-11] MEDS: LEVOTHYROXINE SODIUM 50 MCG TAB PO SCH (06:15)
[2020-08-11] MEDS: SUCRALFATE 1 GM TAB PO SCH ×4 (06:15→21:38)
[2020-08-11 06:22] LABS: Potassium 3.6 mmol/L (3.5-5.1)
[2020-08-11 06:37] LABS: Albumin 3.2 g/dL (3.4-5.0); BUN/Creatinine Ratio 14.3; Bilirubin, Total 0.7 mg/dL (0.2-1.0); Calcium 8.3 mg/dL (8.5-10.1); Total Protein 6.6 g/dL (6.4-8.2)
[2020-08-11 08:00] VITALS: BP 135/78
[2020-08-11] MEDS: cefTRIAXone 1GM/50ML D5W 50 ML IV SCH (08:36)
[2020-08-11 09:00] VITALS: BP 135/78
[2020-08-11] MEDS ORDERED: PANTOPRAZOLE 40 MG TAB PO SCH (10:00)
[2020-08-11] MEDS: MILK OF MAGNESIA 30ML SUSP PO SCH (10:54)
--- NOTE | 2020-08-11 11:20 | NUR ---
IV access infiltrated, will resume scheduled IV medication once a new line is established.
[2020-08-11] MEDS ORDERED: HYDROCORTISONE SOD SUCC 100 MG/2ML INJ VIAL IV SCH (12:00)
[2020-08-11 13:00] VITALS: BP 115/70
[2020-08-11] MEDS ORDERED: TPN PER PHARMACY 0 ML IV SCH (14:30)
[2020-08-11 14:54] LABS: Magnesium 2.1 mg/dL (1.6-2.6); Phosphorus 3.7 mg/dL (2.5-4.90)
[2020-08-11 14:58] LABS: Pre Albumin 15.5 mg/dL (20.0-40.0)
[2020-08-11 15:38] LABS: INR 1.01 (0.9-1.15); Partial Thromboplastin Time 27.9 sec (23.0-31.2)
[2020-08-11] MEDS ORDERED: LIDOCAINE 1% (LOCAL ANESTH.) PF 5ml SDV ID ONE (17:15)
--- NOTE | 2020-08-11 17:28 | NUR ---
PICC line placement Patient/Patient significant other educated on need for PICC line placement. All risks and benefits explained and all questions and concerns addressed prior to procedure. Noted past medical history and allergies with no contraindications. INR and Plt counts within acceptable range. 5 fr PICC line inserted via right basilic vein using Ofelia Feliz's [employer] US and Tip Location System. Sterile technique with maximum barrier precautions utilized. Blood return obtained from each of the two lumens and each flushed easily with NS using proper technique. PICC secured with Stat-lock; biodisc and occlusive dressing applied. Stat portable chest x-ray obtained for PICC tip placement. *Baseline Arm Circumference 31 cm Internal Length 41 cm External Length 0 cm PICC lot # [id number]
--- NOTE | 2020-08-11 17:32 | NUR ---
OK to use PICC line Xray completed. OK to use PICC line. PRIMARY RN DIPIKA NOTIFIED
[2020-08-11] MEDS: SODIUM CHLORIDE 0.9% 1,000 ML IV SCH (18:00)
--- NOTE | 2020-08-11 19:50 | NUR ---
pt refused to do covid-19 test swab today, requesting to do it tomorrow instead.
[2020-08-11] MEDS ORDERED: CLINIMIX PER PHARMACY IV NR (20:00)
--- NOTE | 2020-08-11 20:00 | NUR ---
RECEIVED PATIENT FROM DAY SHIFT RN. PATIENT RESTING IN BED. NO S/S OF DISTRESS NOTED. C/O PAIN @ 3/10 AFTER PAIN MEDICATION GIVEN EARLIER. PATIENT UNDERSTOOD THE SCHEDULE OF PAIN MANAGEMENT, WILL COME BACK FOR PAIN MEDICATION WHEN THE TIME IS DUE AND PER PATIENT REQUESTS. PICC LINE IN PLACE FLASHED WELL WITH NS. POC INSTRUCTED AND ENCOURAGED PATIENT TO CALL FOR HATCH BOSS IF NEEDED. BED IN LOWEST POSITION WITH SIDE RAILS UP X 2. CALL GIPSON WITHIN REACH. CONTINUE TO MONITOR FOR CHANGES Q1H AND PRN.
[2020-08-11 21:17] VITALS: BP 116/49
[2020-08-11] MEDS: SODIUM CHLOR 0.9% PF (SALINE LOCK) 10ML VIAL/SYR IV SCH (21:39)
--- NOTE | 2020-08-11 23:10 | NUR ---
PATIENT C/O PAIN @ 05/26, MEDICATED PATIENT ORDERED. CONTINUE TO MONITOR.
[2020-08-11] MEDS: ACCU-CHEK COMFORT CURVE STRIP VI SCH (23:50)
[2020-08-11] MEDS: InsuLIN REG 1unit/0.01ml Soln (100units/ml) SC SCH (23:50)
[2020-08-12] MEDS ORDERED: DEXTROSE (50%) 50ML SYRG IV SCH
--- NOTE | 2020-08-12 | NUR ---
ACCU-CHECK, BS 98. NO COVERAGE. CONTINUE TO MONITOR.
--- NOTE | 2020-08-12 03:42 | NUR ---
PATIENT SLEEPING. NO S/S OF DISTRESS NOTED. CONTINUE CARE.
--- NOTE | 2020-08-12 04:00 | NUR ---
ACCU-CHECK, BS 98. NO COVERAGE. CONTINUE TO MONITOR. Addendum: 08/12/20 at 0442 by Larry Eastman RN WRONG TIME
[2020-08-12] MEDS: MORPHINE SULF INJ 2 MG/ML SYRINGE 1ML IV PRN ×3 (05:06→16:46)
[2020-08-12] MEDS: PROMETHAZINE HCL 25 MG/ML 1ML IV PRN ×2 (05:06→12:17)
--- NOTE | 2020-08-12 05:10 | NUR ---
PATIENT C/O PAIN @ 06/26, MEDICATED PATIENT ORDERED WELL NAUSEA MED. CONTINUE TO MONITOR.
[2020-08-12 05:14] VITALS: BP 118/65
[2020-08-12 05:28] LABS: Basophils # (auto) 0.1 10 ^3/uL (0-0.2); Eosinophils # (auto) 0.2 10 ^3/uL (0-0.8); Eosinophils % (auto) 2.4 % (0.0-7.0); Hematocrit 38.4 % (36.0-46.0); Hemoglobin 13.4 g/dL (12.2-16.2); Lymphocytes # (auto) 1.6 10 ^3/uL (0.4-5.4); Lymphocytes % (auto) 24.5 % (10.0-50.0); Mean Corpuscular Hemoglobin 35.2 pg (28.0-32.0); Mean Corpuscular Hgb Conc. 34.8 g/dL (32.0-36.0); Mean Corpuscular Volume 101.1 fL (80.0-100.0); Monocytes # (auto) 0.4 10 ^3/uL (0-1.3); Monocytes % (auto) 6.5 % (0.0-12.0); Neutrophils # (auto) 4.2 10 ^3/uL (1.6-8.6); Neutrophils % (auto) 65.6 % (37.0-80.0); Nucleated Red Blood Cells % 0.1 %; Platelet Count (auto) 193 10^3/uL (140-450); Red Cell Distribution Width 17.9 % (11.8-14.3); White Blood Cell 6.4 10^3/uL (4.4-10.8)
[2020-08-12 05:38] LABS: INR 1.02 (0.9-1.15); Partial Thromboplastin Time 28.1 sec (23.0-31.2)
[2020-08-12 05:40] LABS: Albumin 2.9 g/dL (3.4-5.0); Calcium 8.1 mg/dL (8.5-10.1); Magnesium 2.1 mg/dL (1.6-2.6); Potassium 3.5 mmol/L (3.5-5.1)
[2020-08-12 05:44] LABS: Bilirubin, Total 0.5 mg/dL (0.2-1.0); Phosphorus 2.4 mg/dL (2.5-4.90); Total Protein 6.1 g/dL (6.4-8.2)
[2020-08-12] MEDS: InsuLIN REG 1unit/0.01ml Soln (100units/ml) SC SCH ×3 (06:00→17:35)
[2020-08-12] MEDS: ACCU-CHEK COMFORT CURVE STRIP VI SCH ×3 (06:09→17:34)
[2020-08-12] MEDS: metroNIDAZOLE 500MG/100ML 100 ML IV SCH ×3 (06:09→21:53)
[2020-08-12] MEDS: LEVOTHYROXINE SODIUM 50 MCG TAB PO SCH (06:10)
[2020-08-12] MEDS: SUCRALFATE 1 GM TAB PO SCH ×4 (06:11→22:49)
--- NOTE | 2020-08-12 06:14 | NUR ---
ACCU-CHECK, BS 102. NO COVERAGE. CONTINUE TO MONITOR.
--- NOTE | 2020-08-12 07:32 | NUR ---
RECEIVED REPORT FROM [facility] SHIFT RNMAGDI. PT. ASLEEP AT INITIAL ENCOUNTER BUT EASILY AROUSED. PLAN OF CARE DISCUSSED. DENIES PAIN, NO SOB OR S/S DISTRESS NOTED. BED IN LOWEST AND LOCKED POSITION, CALL LIGHT AND PHONE WITHIN REACH. CLINIMIX INFUSING AT 42ML/HR. WILL CONTINUE TO MONITOR Q1HR AND PRN.
[2020-08-12 08:00] VITALS: BP 119/68
[2020-08-12] MEDS: SODIUM CHLORIDE 0.9% 1,000 ML IV SCH (08:13)
[2020-08-12] MEDS: cefTRIAXone 1GM/50ML D5W 50 ML IV SCH (08:13)
[2020-08-12 10:34] VITALS: BP 119/68
[2020-08-12] MEDS: MILK OF MAGNESIA 30ML SUSP PO SCH (10:37)
[2020-08-12] MEDS: SODIUM CHLOR 0.9% PF (SALINE LOCK) 10ML VIAL/SYR IV SCH ×2 (10:38→22:49)
--- NOTE | 2020-08-12 10:41 | NUR ---
REPORTS 4/10 LQ ABD PAIN AND NOT WANTING PAIN MED AT THIS TIME. WILL CONTINUE TO MONITOR FOR CHANGES.
--- NOTE | 2020-08-12 11:01 | NUR ---
Nutrition Consult Continue to advance TPN to meet >75% of needs, advance diet as medically feasible Est energy needs 4991-1904 kcal (11-14 kcal/kg BW 124.4kg) Est protein needs 55-71g (1-1.3g/kg IBW 54.5kg) Will reassess prn. Addendum: 08/12/20 at [address] Amended: Links added.
[2020-08-12] MEDS ORDERED: POTASSIUM PHOSP 26.4MEQ(18MMOL) IN NS 100 ML IV ONE (11:30)
[2020-08-12 12:58] VITALS: BP 116/77
--- NOTE | 2020-08-12 16:48 | NUR ---
1400 scheduled Flagyl held, not given due to potassium phosphate still infusing. Patient has picc line access with TPN running on one and potassium phosphate on the other.
--- NOTE | 2020-08-12 16:52 | NUR ---
COVID-19 IN-HOUSE TEST SWAB COLLECTED AND TAKEN TO LAB PER MD'S ORDER.
[2020-08-12 17:02] VITALS: BP 115/74
[2020-08-12] MEDS ORDERED: TPN PER PHARMACY IV NR ×10 (20:00)
--- NOTE | 2020-08-12 20:35 | NUR ---
PT HAD MEDIUM SIZED FORMED STOOL. COLLECTED AND SENT TO LAB FOR HEMOCCULT TESTING.
[2020-08-12 23:26] VITALS: BP 116/68
--- NOTE | 2020-08-13 00:37 | NUR ---
PT STATES SHE HAS CHEST PAIN 1-10 A 5. ORDER FOR EKG OBTAINED. 12 LEAD COMPLETED READING NSR WITH BORDERLINE T ABNORMALITIES. VITAL SIGNS 112/73 HR 81 OXYGEN SAT 95% ROOM AIR. WILL CONTINUE TO MONITOR.
[2020-08-13] MEDS: MORPHINE SULF INJ 2 MG/ML SYRINGE 1ML IV PRN ×4 (01:13→21:59)
[2020-08-13 05:27] VITALS: BP 124/77
[2020-08-13] MEDS: InsuLIN REG 1unit/0.01ml Soln (100units/ml) SC SCH ×4 (06:00→17:23)
[2020-08-13] MEDS: ACCU-CHEK COMFORT CURVE STRIP VI SCH ×4 (06:03→17:23)
[2020-08-13] MEDS: SUCRALFATE 1 GM TAB PO SCH ×4 (06:04→21:58)
[2020-08-13] MEDS: LEVOTHYROXINE SODIUM 50 MCG TAB PO SCH (06:04)
[2020-08-13] MEDS: metroNIDAZOLE 500MG/100ML 100 ML IV SCH ×3 (06:05→21:59)
--- NOTE | 2020-08-13 06:49 | NUR ---
PT ASKED TO BE REMOVED FROM TPN;WHICH HAS JUST BEEN RECONNECTED DUE TO MIDLINE LAB DRAW. PT STATES SHE ONLY GETS CHEST PAIN WHEN THE TPN IS HOOKED UP TO HER;WILL PASS DOWN TO DAYSHIFT. VITAL SIGNS STABLE AT 116/68 HR 74 O2 SAT98%.
[2020-08-13 07:11] LABS: Potassium 3.9 mmol/L (3.5-5.1)
[2020-08-13 07:20] LABS: Albumin 3.1 g/dL (3.4-5.0); BUN/Creatinine Ratio 11.9; Bilirubin, Total 0.6 mg/dL (0.2-1.0); Calcium 8.4 mg/dL (8.5-10.1); Magnesium 2.2 mg/dL (1.6-2.6); Phosphorus 3.2 mg/dL (2.5-4.90); Total Protein 6.6 g/dL (6.4-8.2)
[2020-08-13 08:00] VITALS: BP 125/79
[2020-08-13] MEDS: cefTRIAXone 1GM/50ML D5W 50 ML IV SCH (08:22)
[2020-08-13 09:00] VITALS: BP 125/79
[2020-08-13] MEDS: SODIUM CHLOR 0.9% PF (SALINE LOCK) 10ML VIAL/SYR IV SCH ×2 (10:00→21:59)
[2020-08-13] MEDS: MILK OF MAGNESIA 30ML SUSP PO SCH (10:00)
[2020-08-13] MEDS: PANTOPRAZOLE 40 MG/10 ML VIAL INJ IV SCH (10:58)
--- NOTE | 2020-08-13 10:58 | NUR ---
Pt reports diarrhea, milk of magnesium not given.
--- NOTE | 2020-08-13 11:00 | NUR ---
patient reports 7/10 abdominal pain. Will medicated with pain med per eMAR.
[2020-08-13] MEDS: PROMETHAZINE HCL 25 MG/ML 1ML IV PRN (11:16)
[2020-08-13 13:00] VITALS: BP 126/66
[2020-08-13] MEDS: ALPRAZolam 0.5 MG TAB PO SCH ×2 (13:43→21:58)
[2020-08-13 16:43] VITALS: BP 113/77
[2020-08-13] MEDS ORDERED: TPN PER PHARMACY IV NR ×10 (20:00)
[2020-08-13 21:00] VITALS: BP 135/71
[2020-08-14] MEDS: ACCU-CHEK COMFORT CURVE STRIP VI SCH ×4 (01:27→17:18)
[2020-08-14 05:00] VITALS: BP 123/72
[2020-08-14] MEDS: InsuLIN REG 1unit/0.01ml Soln (100units/ml) SC SCH ×4 (05:45→17:20)
[2020-08-14] MEDS: metroNIDAZOLE 500MG/100ML 100 ML IV SCH ×3 (06:52→22:56)
[2020-08-14] MEDS: ALPRAZolam 0.5 MG TAB PO SCH (06:53)
[2020-08-14] MEDS: LEVOTHYROXINE SODIUM 50 MCG TAB PO SCH (06:53)
[2020-08-14] MEDS: SUCRALFATE 1 GM TAB PO SCH ×4 (06:54→22:56)
--- NOTE | 2020-08-14 07:40 | NUR ---
Opening Shift Note Assumed care of patient, she is asleep but able to drowsily wake by name. No S/S of distress/SOB or pain reported at time of assessment. Patient has TPN running as per order. Bed is in lowest and locked position, side rails up x 2 and call light within reach. Patient Instructed on POC and to call for assist PRN, will continue to monitor for changes Q1hr and PRN.
[2020-08-14 07:42] LABS: Calcium 8.5 mg/dL (8.5-10.1); Magnesium 2.5 mg/dL (1.6-2.6); Potassium 3.7 mmol/L (3.5-5.1)
[2020-08-14 07:46] LABS: BUN/Creatinine Ratio 13.3; Bilirubin, Total 0.5 mg/dL (0.2-1.0); Total Protein 6.3 g/dL (6.4-8.2)
[2020-08-14 09:10] VITALS: BP 104/71
[2020-08-14] MEDS: SODIUM CHLOR 0.9% PF (SALINE LOCK) 10ML VIAL/SYR IV SCH ×2 (09:57→22:59)
[2020-08-14] MEDS: cefTRIAXone 1GM/50ML D5W 50 ML IV SCH (09:57)
[2020-08-14] MEDS: MILK OF MAGNESIA 30ML SUSP PO SCH ×2 (09:57→10:00)
[2020-08-14] MEDS: PANTOPRAZOLE 40 MG/10 ML VIAL INJ IV SCH (10:00)
--- NOTE | 2020-08-14 10:55 | NUR ---
AT BEDSIDE DR GREGORY AT BEDSIDE, DISCUSSING POC INCLUDING PATIENTS CONCERNS REGARDING SURGICAL PROCEDURE, CONT CARE
[2020-08-14] MEDS ORDERED: ALPRAZolam 0.5 MG TAB PO PRN ×2 (11:00→11:15)
[2020-08-14] MEDS ORDERED: GOLYTELY 4L KIT PO ONE (11:15)
--- NOTE | 2020-08-14 11:50 | NUR ---
Nutrition Followup Notes Pt wt is 123.3 kg Pt was with medical personnel when rounded this morning. Pt is currently NPO with TPN @ 56 ml/hr providing 1330 kcals, 70g protein and 1050 NPCs. PN support meets 76-97% of est energy needs and 99-127% of est protein needs. Continue to advance TPN to meet >75% of needs, advance diet as medically feasible Est energy needs 7809-4328 kcal (11-14 kcal/kg BW 124.4kg) Est protein needs 55-71g (1-1.3g/kg IBW 54.5kg) Will reassess prn. LABS: BUN 6 L, Creat 0.45 L GI: Pt had 1 BM on 08/13 per RN doc. BS: 21 low risk. Refer to wound assessment report for full details. PES: 1) Inadequate oral intake r/t current medical condition aeb pt with NPO diet order 2) Decreased nutrient needs r/t adiposity aeb pt with a BMI of 47.1kg/m2 and 228% of IBW Malnutrition related to morbid Weight 200% of ideal wt Malnutrition related to morbid obesity Yes Comments 1) Continue to monitor NPO status, labs, skin 2) Refer pt to OPD on DC 3) Continue current plan of care
--- NOTE | 2020-08-14 12:09 | NUR ---
MD/GI AT BEDSIDE DR JIN AT BEDSIDE, DISCUSSING POC WITH PT, MD AWARE PT STOOL OB +, CONT CARE
[2020-08-14 14:14] VITALS: BP 110/77
[2020-08-14] MEDS: MORPHINE SULF INJ 2 MG/ML SYRINGE 1ML IV PRN ×2 (14:50→20:10)
[2020-08-14 16:57] VITALS: BP 131/75
[2020-08-14] MEDS ORDERED: TPN PER PHARMACY IV NR ×8 (20:00)
[2020-08-14] MEDS: PROMETHAZINE HCL 25 MG/ML 1ML IV PRN (20:24)
[2020-08-15] MEDS: traMADol HCL 50 MG TAB PO PRN ×2 (00:36→12:42)
[2020-08-15 05:12] VITALS: BP 118/68
[2020-08-15] MEDS: ACCU-CHEK COMFORT CURVE STRIP VI SCH ×5 (06:00→23:39)
[2020-08-15] MEDS: InsuLIN REG 1unit/0.01ml Soln (100units/ml) SC SCH ×5 (06:00→23:39)
[2020-08-15] MEDS: metroNIDAZOLE 500MG/100ML 100 ML IV SCH ×3 (06:43→21:55)
[2020-08-15] MEDS: SUCRALFATE 1 GM TAB PO SCH ×4 (06:45→21:55)
[2020-08-15] MEDS: LEVOTHYROXINE SODIUM 50 MCG TAB PO SCH (06:45)
[2020-08-15 07:58] LABS: Albumin 3.1 g/dL (3.4-5.0); Calcium 8.7 mg/dL (8.5-10.1); Magnesium 2.2 mg/dL (1.6-2.6)
[2020-08-15 08:00] VITALS: BP 111/75
[2020-08-15 08:02] LABS: Bilirubin, Total 0.5 mg/dL (0.2-1.0); Total Protein 6.8 g/dL (6.4-8.2)
[2020-08-15 09:00] VITALS: BP 111/75
[2020-08-15] MEDS: cefTRIAXone 1GM/50ML D5W 50 ML IV SCH (09:16)
[2020-08-15 09:17] LABS: Phosphorus 4.5 mg/dL (2.5-4.90)
[2020-08-15] MEDS: PANTOPRAZOLE 40 MG/10 ML VIAL INJ IV SCH (09:18)
[2020-08-15] MEDS: MILK OF MAGNESIA 30ML SUSP PO SCH (09:20)
[2020-08-15] MEDS: SODIUM CHLOR 0.9% PF (SALINE LOCK) 10ML VIAL/SYR IV SCH ×2 (09:20→21:55)
[2020-08-15] MEDS: PROMETHAZINE HCL 25 MG/ML 1ML IV PRN ×3 (09:42→18:38)
[2020-08-15] MEDS: MORPHINE SULF INJ 2 MG/ML SYRINGE 1ML IV PRN ×4 (09:43→23:58)
[2020-08-15] MEDS ORDERED: CYCLOBENZAPRINE HCL 10 MG TAB PO PRN (10:15)
--- NOTE | 2020-08-15 10:15 | NUR ---
Dr Cavanaugh on unit
--- NOTE | 2020-08-15 11:30 | NUR ---
Surgical Consents Per Dr Cavanaugh's request, I spoke with Dr Baker and confirmed surgery is scheduled for tomorrow and informed him there are no orders to consent patient. Per Dr Baker, he will place order
[2020-08-15 13:00] VITALS: BP 107/70
--- NOTE | 2020-08-15 13:17 | NUR ---
assessment Patient is a 45 year old female who is alert and oriented. Patients cognitive abilities are intact. Prior to admission patient lived home with family and functioned independently. Patient informed me she is able to care for her own ADLs. Per patient she will return home to her prior living arrangements post discharge and family will transport her home. Patient informed me she will be having surgery in the morning. I informed patient I will continue to monitor and follow up as appropriate for any post discharge needs. I informed patient to speak to the doctor about extending her disability. I informed patient she has a right to speak to a executive secretary social welfare regarding all care. I informed patient she has a right to participate in any and all discharge planning. Patient does not have a POA and advanced directive. I have offered patient information on POA and advanced directives. I informed the patient the advantages and benefits of having an Advanced Directive. Patient informed me her mother Adilia Mcfarlane and daughter Manda Zuluaga will make decisions for her if she is unable. Patient verbalized understanding and agreed to discharge plan home. Addendum: 08/15/20 at 1321 by Jaylene PEREZ Amended: Links added.
--- NOTE | 2020-08-15 15:00 | NUR ---
Surgical Consent Patient has additional questions for Dr Baker prior to surgery. Patient will sign consents after speaking with MD tomorrow.
[2020-08-15] MEDS ORDERED: FLEET MINERAL OIL ENEMA 133 ML PR ONE (15:45)
[2020-08-15 16:39] VITALS: BP 110/83
[2020-08-15] MEDS ORDERED: TPN PER PHARMACY IV NR ×8 (20:00)
--- NOTE | 2020-08-15 20:28 | NUR ---
HOSPITALIST PAGED PATIENT HAS RED BUMPS/RASH LOCALIZED TO LEFT FOOT. PATIENT REPORTS ITCHINESS AT SITE.
[2020-08-15 21:39] VITALS: BP 130/89
--- NOTE | 2020-08-15 22:05 | NUR ---
HOSPITALIST MANDY SPOKE TO WIRE WEAVER CLOTH CLAUDIA KEATING. NOTIFIED OF RASH/RED BUMPS TO PATIENT'S FEET BILATERALLY, PATIENT COMPLAINTS OF ITCHINESS AT SITE. NEW ORDERS RECEIVED FOR BENADRYL 50MG PO Q6H PRN FOR ITCHING OR ALLERGIC REACTION. ORDERS READ BACK AND VERIFIED.
[2020-08-15] MEDS ORDERED: diphenhdrAMINE HCL 25 MG CAP PO PRN (22:15)
[2020-08-16 05:00] VITALS: BP 104/61
[2020-08-16] MEDS: InsuLIN REG 1unit/0.01ml Soln (100units/ml) SC SCH ×4 (06:00→23:59)
[2020-08-16] MEDS: LEVOTHYROXINE SODIUM 50 MCG TAB PO SCH (06:20)
[2020-08-16] MEDS: metroNIDAZOLE 500MG/100ML 100 ML IV SCH ×3 (06:20→21:38)
[2020-08-16] MEDS: SUCRALFATE 1 GM TAB PO SCH ×4 (06:20→21:39)
[2020-08-16] MEDS: ACCU-CHEK COMFORT CURVE STRIP VI SCH ×4 (06:21→23:55)
--- NOTE | 2020-08-16 07:00 | NUR ---
CHG BATH COMPLETE TOTAL LINEN CHANGE PROVIDED. FRESH GOWN PROVIDED.
--- NOTE | 2020-08-16 07:10 | NUR ---
BOWEL MOVEMENT PATIENT REPORTS CLEAR YELLOW LIQUID BOWEL MOVEMENTS WITH NO SOLID PARTICLES.
[2020-08-16 07:11] LABS: Eosinophils # (auto) 0.4 10 ^3/uL (0-0.8); Monocytes # (auto) 0.5 10 ^3/uL (0-1.3); Nucleated Red Blood Cells % 0.1 %; Red Cell Distribution Width 17.5 % (11.8-14.3)
--- NOTE | 2020-08-16 07:15 | NUR ---
PICC Line Dressing Changes PICC line dressing change done with a sterile technique. Cleansed with ChloraPrep scrub/Betadine. Bio-patch as available. Occlusive dressing applied. Changed claves.
[2020-08-16 07:16] LABS: Basophils # (auto) 0 10 ^3/uL (0-0.2); Basophils % (auto) 0.5 % (0.0-2.0); Eosinophils % (auto) 5.5 % (0.0-7.0); Hematocrit 40.7 % (36.0-46.0); Hemoglobin 14.1 g/dL (12.2-16.2); Lymphocytes # (auto) 1.3 10 ^3/uL (0.4-5.4); Lymphocytes % (auto) 18.5 % (10.0-50.0); Mean Corpuscular Hgb Conc. 34.5 g/dL (32.0-36.0); Mean Corpuscular Volume 101.4 fL (80.0-100.0); Monocytes % (auto) 7.8 % (0.0-12.0); Neutrophils # (auto) 4.7 10 ^3/uL (1.6-8.6); Neutrophils % (auto) 67.7 % (37.0-80.0); Platelet Count (auto) 179 10^3/uL (140-450); Red Blood Cells 4.01 10^6/uL (4.0-5.20)
[2020-08-16 07:23] LABS: Potassium 3.8 mmol/L (3.5-5.1)
[2020-08-16 07:26] LABS: INR 1.02 (0.9-1.15); Partial Thromboplastin Time 29.6 sec (23.0-31.2)
--- NOTE | 2020-08-16 07:35 | NUR ---
Patient off unit to surgery
[2020-08-16 07:43] LABS: Albumin 3.3 g/dL (3.4-5.0); BUN/Creatinine Ratio 22.2; Bilirubin, Total 0.8 mg/dL (0.2-1.0); Calcium 8.8 mg/dL (8.5-10.1); Magnesium 2.4 mg/dL (1.6-2.6); Phosphorus 4.1 mg/dL (2.5-4.90); Total Protein 6.9 g/dL (6.4-8.2)
[2020-08-16] MEDS ORDERED: metroNIDAZOLE 500MG/100ML 100 ML IV ONE (08:26)
[2020-08-16] MEDS: cefTRIAXone 1GM/50ML D5W 50 ML IV SCH (09:00)
[2020-08-16] MEDS ORDERED: fentaNYL CITRATE 100 MCG/2 ML VL ONE (09:02)
[2020-08-16] MEDS ORDERED: LIDOCAINE 2% (LOCAL ANESTH.) PF 5ml SDV ONE (09:02)
[2020-08-16] MEDS ORDERED: HYDROmorphone HCL 2 MG/ML VL ONE (09:02)
[2020-08-16] MEDS ORDERED: KETAMINE HCL 10 ML ONE (09:02)
[2020-08-16] MEDS ORDERED: ePHEDrine SULFATE 50 MG/ML AMP ONE (09:02)
[2020-08-16] MEDS ORDERED: ROCURONIUM 10MG/ML 10ML VIAL IV ONE (09:02)
[2020-08-16] MEDS ORDERED: PROPOFOL 10 MG/ML 20 ML IV ONE (09:02)
[2020-08-16] MEDS ORDERED: GLYCOPYRROLATE 0.2 MG/ML 1ML VIAL ONE (09:02)
[2020-08-16] MEDS ORDERED: DexAMETHasone SOD PHOS 10MG/1ML VIAL INJ ONE (09:02)
[2020-08-16] MEDS ORDERED: ONDANSETRON HCL 4 MG/2 ML VIAL ONE (09:02)
[2020-08-16] MEDS ORDERED: MIDAZOLAM HCL 1MG/1ML-2 ML VIAL ONE (09:05)
[2020-08-16] MEDS ORDERED: ceFAZolin 1GM VL ONE (09:49)
[2020-08-16] MEDS: SODIUM CHLOR 0.9% PF (SALINE LOCK) 10ML VIAL/SYR IV SCH ×2 (10:00→21:38)
[2020-08-16] MEDS: PANTOPRAZOLE 40 MG/10 ML VIAL INJ IV SCH (10:00)
[2020-08-16] MEDS: MILK OF MAGNESIA 30ML SUSP PO SCH (10:00)
[2020-08-16] MEDS ORDERED: fentaNYL CITRATE 5 ML ONE (10:11)
--- NOTE | 2020-08-16 11:50 | NUR ---
Nutrition Followup Notes Pt wt is 123.2 kg Pt was not on the floor when rounded this morning. Pt is currently NPO with TPN @ 65 ml/hr providing 1350 kcals, 100g protein and 950 NPCs. PN support meets 77-99% of est energy needs and 141-182% of est protein needs. Continue to advance TPN to meet >75% of needs, advance diet as medically feasible Est energy needs 1426-7685 kcal (11-14 kcal/kg BW 124.4kg) Est protein needs 55-71g (1-1.3g/kg IBW 54.5kg) Will reassess prn. LABS: Alb 3.3 L GI: Pt had 1 BM on 08/15 per RN doc. BS: 17 mod risk. Refer to wound assessment report for full details. PES: 1) Inadequate oral intake r/t current medical condition aeb pt with NPO diet order 2) Decreased nutrient needs r/t adiposity aeb pt with a BMI of 47.1kg/m2 and 228% of IBW Malnutrition related to morbid Weight 200% of ideal wt Malnutrition related to morbid obesity Yes Comments 1) Continue to monitor NPO status, labs, skin 2) Refer pt to OPD on DC 3) Continue current plan of care
[2020-08-16] MEDS ORDERED: D5W/SOD CHL 0.45%/KCL 20MEQ 1,000 ML IV ONE (12:00)
[2020-08-16] MEDS ORDERED: ONDANSETRON HCL 4 MG/2 ML VIAL IV PRN (12:45)
[2020-08-16] MEDS: HYDROmorphone HCL 2 MG/ML VL ONE ×2 (12:45→12:55)
[2020-08-16] MEDS ORDERED: HYDROmorphone HCL 2 MG/ML VL IV PRN (12:45)
[2020-08-16] MEDS: FUROSEMIDE 20 MG/2 ML VIAL ONE (13:00)
[2020-08-16] MEDS ORDERED: FUROSEMIDE 20 MG/2 ML VIAL IV ONE (13:00)
--- NOTE | 2020-08-16 14:15 | NUR ---
Patient returned to room from surgery. Patient NG to LCS and Stoll catheter in place. Patients abdominal dressing is c/d/i, with drainage amount circled from OR nurse, FRAN drain to right abdomen. Abdominal binder in place. Patient VS: 132/82, 110, 96%, 19, 98.2.
[2020-08-16 14:44] LABS: White Blood Cell 13.3 10^3/uL (4.4-10.8)
[2020-08-16 14:46] LABS: Hematocrit 40.1 % (36.0-46.0); Hemoglobin 13.3 g/dL (12.2-16.2); Mean Corpuscular Hgb Conc. 33.1 g/dL (32.0-36.0); Mean Corpuscular Volume 102.9 fL (80.0-100.0); Platelet Count (auto) 247 10^3/uL (140-450); Red Cell Distribution Width 17.6 % (11.8-14.3)
[2020-08-16 14:47] LABS: Band Neutrophils % (manual) 0; Basophils % (manual) 0 (0.0-2.0); Blast Cells 0; Eosinophils % (manual) 0 (0-7); Metamyelocytes % 0; Myelocytes % 0; Promyelocytes % 0; Reactive Lymphocytes 0
[2020-08-16] MEDS: HYDROmorphone HCL 2 MG/ML VL IV PRN ×4 (14:58→22:50)
[2020-08-16 15:12] LABS: Albumin 2.9 g/dL (3.4-5.0); Calcium 8.8 mg/dL (8.5-10.1)
[2020-08-16 15:17] LABS: Bilirubin, Total 0.7 mg/dL (0.2-1.0); Total Protein 6.3 g/dL (6.4-8.2)
--- NOTE | 2020-08-16 15:25 | NUR ---
Confirmed with Dr Baker it is ok to continue TPN
[2020-08-16 17:00] VITALS: BP 132/88
[2020-08-16 17:23] LABS: Lymphocytes % (manual) 10 (10.0-50.0); Monocytes % (manual) 4 (0-12)
[2020-08-16 17:25] LABS: Urine Bacteria NONE SEEN /hpf (None Seen); Urine Blood Negative /uL (Negative); Urine Hyaline Cast FEW /lpf (0 - 2); Urine Mucus FEW (None Seen); Urine Specific Gravity 1.006 (1.001-1.035); Urine WBC <1 /hpf (0 - 5)
--- NOTE | 2020-08-16 18:59 | NUR ---
FRAN Drainage Output of 40ml sanguineous drainage from FRAN drain
--- NOTE | 2020-08-16 19:25 | NUR ---
OPENING SHIFT NOTE Assumed care of patient who is A&O x4. Currently on 4L NC with no s/s of distress. Patient reports 8/10 abdominal pain. Pain related to surgical procedure. Pain management options discussed. NG tube present in left nare, secured at 67 and connected to continuous intermittent suction. Minimal blackish drainage noted in suction canister. Double lumen PICC line in right upper arm. TPN infusing at 69ml/hr as per orders. PIV in right hand in intact and patent. Currently infusing IVF as ordered. Surgical dressing to medial abdomen is intact. Drainage circled. Abdominal binder in place. FRAN drain present in LLQ with minimal sanguinous drainage. Stoll catheter is in place and secured to leg. Tubing is free from kinks and collection bag is hung below the level of the bladder. Draining clear yellow urine to gravity. SCDs present on BLE. Bed is in low locked position with side rails up x2. HOB elevated above 30 degrees. Call light is within reach and patient encouraged to call for assistance when needed. Will continue to monitor for changes PRN.
[2020-08-16 20:00] VITALS: BP 105/65
[2020-08-16] MEDS ORDERED: TPN PER PHARMACY IV NR ×8 (20:00)
[2020-08-16 22:00] VITALS: BP 105/65
[2020-08-17] MEDS: HYDROmorphone HCL 2 MG/ML VL IV PRN ×7 (01:30→21:05)
[2020-08-17 05:00] VITALS: BP 112/72
[2020-08-17] MEDS: metroNIDAZOLE 500MG/100ML 100 ML IV SCH ×3 (05:33→21:05)
[2020-08-17] MEDS: ACCU-CHEK COMFORT CURVE STRIP VI SCH ×4 (05:33→23:30)
[2020-08-17] MEDS: InsuLIN REG 1unit/0.01ml Soln (100units/ml) SC SCH ×4 (05:47→23:32)
[2020-08-17 05:53] LABS: Basophils # (auto) 0.1 10 ^3/uL (0-0.2); Eosinophils # (auto) 0 10 ^3/uL (0-0.8); Lymphocytes % (auto) 5.9 % (10.0-50.0); Monocytes # (auto) 1.3 10 ^3/uL (0-1.3); Red Blood Cells 3.33 10^6/uL (4.0-5.20)
[2020-08-17] MEDS: SUCRALFATE 1 GM TAB PO SCH (05:56)
[2020-08-17] MEDS: LEVOTHYROXINE SODIUM 50 MCG TAB PO SCH (05:56)
[2020-08-17 05:57] LABS: Basophils % (auto) 0.7 % (0.0-2.0); Hematocrit 33.8 % (36.0-46.0); Hemoglobin 11.6 g/dL (12.2-16.2); Lymphocytes # (auto) 0.8 10 ^3/uL (0.4-5.4); Mean Corpuscular Hemoglobin 34.8 pg (28.0-32.0); Mean Corpuscular Hgb Conc. 34.3 g/dL (32.0-36.0); Mean Corpuscular Volume 101.6 fL (80.0-100.0); Monocytes % (auto) 9.1 % (0.0-12.0); Neutrophils % (auto) 84.3 % (37.0-80.0); Platelet Count (auto) 248 10^3/uL (140-450); White Blood Cell 14.2 10^3/uL (4.4-10.8)
[2020-08-17 06:19] LABS: Potassium 4.6 mmol/L (3.5-5.1)
[2020-08-17 06:29] LABS: Albumin 2.7 g/dL (3.4-5.0); Bilirubin, Total 0.5 mg/dL (0.2-1.0); Calcium 8.3 mg/dL (8.5-10.1); Total Protein 5.9 g/dL (6.4-8.2)
--- NOTE | 2020-08-17 06:46 | NUR ---
DRAINAGE OUTPUT 100ml blackish output from NG tube and 25ml sanguineous drainage emptied from FRAN drain.
--- NOTE | 2020-08-17 07:30 | NUR ---
OPENING NOTE ASSUMED CARE OF PT. ALERT AND ORIENTED. NO S/S OF SOB/DISTRESS NOTED. BED SET TO LOWEST POSITION/LOCKED. BEDSIDE RAILS UP X2. CALL LIGHT WITHIN REACH. INSTRUCTED PT TO CALL FOR ASSISTANCE. UPDATED ON POC. PT VERBALIZED UNDERSTANDING. WILL CONTINUE TO MONITOR Q 1HR AND PRN.
[2020-08-17 09:00] VITALS: BP 122/70
[2020-08-17] MEDS: MILK OF MAGNESIA 30ML SUSP PO SCH (09:29)
[2020-08-17] MEDS: cefTRIAXone 1GM/50ML D5W 50 ML IV SCH (09:30)
[2020-08-17] MEDS: SODIUM CHLOR 0.9% PF (SALINE LOCK) 10ML VIAL/SYR IV SCH ×2 (09:30→21:06)
[2020-08-17] MEDS: PANTOPRAZOLE 40 MG/10 ML VIAL INJ IV SCH (09:30)
[2020-08-17] MEDS: FUROSEMIDE 20 MG/2 ML VIAL ONE (09:32)
[2020-08-17] MEDS: HYDROmorphone HCL 2 MG/ML VL ONE (09:32)
[2020-08-17] MEDS ORDERED: diphenhdrAMINE HCL 50 MG/1 ML VL IV PRN (10:45)
[2020-08-17 11:04] LABS: Phosphorus 1.8 mg/dL (2.5-4.90)
[2020-08-17] MEDS ORDERED: SODIUM PHOSP 40 MEQ in D5W 5% 250 ML IV ONE (11:45)
[2020-08-17 13:00] VITALS: BP 94/59
[2020-08-17 16:49] VITALS: BP 105/56
[2020-08-17] MEDS ORDERED: FAT EMULSION IV NR ×10 (20:00)
[2020-08-17] MEDS ORDERED: [UNRECOGNIZED DRUG - OTHER] IV NR ×10 (20:00)
[2020-08-17] MEDS ORDERED: SODIUM CHLORIDE IV NR ×10 (20:00)
[2020-08-17] MEDS ORDERED: SODIUM PHOSPHATES IV NR ×10 (20:00)
--- NOTE | 2020-08-17 20:00 | NUR ---
Opening Shift Note Assumed care of patient, awake and alert. No S/S of distress/SOB or pain. Instructed on POC and to call for assist PRN, will continue to monitor for changes Q1hr and PRN.Abdominal dressing dry with old blood stained noted, j.p. in placed with minimal output, NGT in the left nares in placed connected to low continuos suction, abdominal binder on.
[2020-08-17 20:12] LABS: Albumin 2.5 g/dL (3.4-5.0); Potassium 3.8 mmol/L (3.5-5.1)
[2020-08-17 20:18] LABS: BUN/Creatinine Ratio 28.6; Bilirubin, Total 0.4 mg/dL (0.2-1.0); Total Protein 5.9 g/dL (6.4-8.2)
[2020-08-17 22:00] VITALS: BP 103/58
[2020-08-18] MEDS: HYDROmorphone HCL 2 MG/ML VL IV PRN ×8 (00:01→22:52)
[2020-08-18 05:00] VITALS: BP 110/64
--- NOTE | 2020-08-18 05:00 | NUR ---
j. p. DRAIN OUTPUT IS 40CC SEROUS SANGUINOUS.
[2020-08-18] MEDS: LEVOTHYROXINE SODIUM 50 MCG TAB PO SCH (05:37)
[2020-08-18] MEDS: metroNIDAZOLE 500MG/100ML 100 ML IV SCH ×3 (05:37→21:52)
[2020-08-18] MEDS: InsuLIN REG 1unit/0.01ml Soln (100units/ml) SC SCH ×4 (06:00→23:46)
[2020-08-18] MEDS: ACCU-CHEK COMFORT CURVE STRIP VI SCH ×4 (06:01→23:47)
[2020-08-18 06:09] LABS: Eosinophils # (auto) 0.1 10 ^3/uL (0-0.8); Mean Corpuscular Hemoglobin 35.3 pg (28.0-32.0); Monocytes # (auto) 0.9 10 ^3/uL (0-1.3)
[2020-08-18 06:15] LABS: Basophils # (auto) 0.2 10 ^3/uL (0-0.2); Basophils % (auto) 1.3 % (0.0-2.0); Hematocrit 31.2 % (36.0-46.0); Hemoglobin 10.8 g/dL (12.2-16.2); Lymphocytes # (auto) 2.4 10 ^3/uL (0.4-5.4); Lymphocytes % (auto) 20.2 % (10.0-50.0); Mean Corpuscular Hgb Conc. 34.5 g/dL (32.0-36.0); Mean Corpuscular Volume 102.1 fL (80.0-100.0); Monocytes % (auto) 7.6 % (0.0-12.0); Neutrophils # (auto) 8.2 10 ^3/uL (1.6-8.6); Neutrophils % (auto) 69.9 % (37.0-80.0); Platelet Count (auto) 220 10^3/uL (140-450); Red Blood Cells 3.06 10^6/uL (4.0-5.20); Red Cell Distribution Width 17.5 % (11.8-14.3); White Blood Cell 11.7 10^3/uL (4.4-10.8)
[2020-08-18 06:28] LABS: Albumin 2.4 g/dL (3.4-5.0); Calcium 7.8 mg/dL (8.5-10.1); Magnesium 2.1 mg/dL (1.6-2.6); Potassium 3.7 mmol/L (3.5-5.1)
[2020-08-18 06:32] LABS: Bilirubin, Total 0.4 mg/dL (0.2-1.0); Phosphorus 3.7 mg/dL (2.5-4.90); Total Protein 5.6 g/dL (6.4-8.2)
--- NOTE | 2020-08-18 07:21 | NUR ---
Care report given to Natty Lucero, patient is resting no distress, dressing dry and intact, NGT in placed, J.P in placed.
[2020-08-18 09:00] VITALS: BP 98/55
[2020-08-18] MEDS: PANTOPRAZOLE 40 MG/10 ML VIAL INJ IV SCH (09:22)
[2020-08-18] MEDS: SODIUM CHLOR 0.9% PF (SALINE LOCK) 10ML VIAL/SYR IV SCH ×2 (09:23→22:52)
[2020-08-18] MEDS: cefTRIAXone 1GM/50ML D5W 50 ML IV SCH (09:23)
--- NOTE | 2020-08-18 11:58 | NUR ---
Nutrition Followup Notes Pt wt is 131.4 kg Pt's curtain was drawn when rounded this morning. Pt is currently NPO with TPN @ 69 ml/hr providing 1390 kcals, 110g protein and 950 NPCs. PN support meets 80-102% of est energy needs and 155-200% of est protein needs. Continue to advance TPN to meet >75% of needs, advance diet as medically feasible Est energy needs 6724-3778 kcal (11-14 kcal/kg BW 124.4kg) Est protein needs 55-71g (1-1.3g/kg IBW 54.5kg) Will reassess prn. LABS: Alb 2.4 L, Gluc 128 H, Ca 7.8 L GI: Pt had diarrhea on 08/17 per RN doc. BS: 19 mod risk. Refer to wound assessment report for full details. PES: 1) Inadequate oral intake r/t current medical condition aeb pt with NPO diet order 2) Decreased nutrient needs r/t adiposity aeb pt with a BMI of 47.1kg/m2 and 228% of IBW Malnutrition related to morbid Weight 200% of ideal wt Malnutrition related to morbid obesity Yes Comments 1) Continue to monitor NPO status, labs, skin 2) Refer pt to OPD on DC 3) Continue current plan of care
[2020-08-18 13:00] VITALS: BP 126/76
[2020-08-18 17:00] VITALS: BP 127/72
[2020-08-18] MEDS ORDERED: TPN PER PHARMACY IV NR ×11 (20:00)
[2020-08-18 21:00] VITALS: BP 114/69
[2020-08-19] MEDS: HYDROmorphone HCL 2 MG/ML VL IV PRN ×7 (02:48→23:59)
[2020-08-19 05:00] VITALS: BP 117/63
[2020-08-19] MEDS: ACCU-CHEK COMFORT CURVE STRIP VI SCH ×3 (06:00→17:50)
[2020-08-19] MEDS: PROMETHAZINE HCL 25 MG/ML 1ML IV PRN (06:13)
[2020-08-19] MEDS: LEVOTHYROXINE SODIUM 50 MCG TAB PO SCH (06:19)
[2020-08-19] MEDS: metroNIDAZOLE 500MG/100ML 100 ML IV SCH ×3 (06:19→21:18)
[2020-08-19] MEDS: InsuLIN REG 1unit/0.01ml Soln (100units/ml) SC SCH ×3 (07:04→17:51)
--- NOTE | 2020-08-19 07:45 | NUR ---
Opening Note Received report from gallery or museum curator RN. Patient is awake, alert and oriented x4. No signs or symptoms of distress noted at this time. Patient complains of abdominal pain 8/10. Will medicate per orders. Patient has NG tube to left nares, set to continuos suction. Patient has Stoll catheter in place, patent and draining. Midline abdominal incision is open to air, FRAN drain to right lower quadrant draining sanguinous fluid. Reviewed plan of care with patient, patient verbalized understanding. Bed in low and locked position, call light within reach. Will continue to monitor Q1 hour and PRN.
[2020-08-19 07:49] LABS: Potassium 3.8 mmol/L (3.5-5.1)
[2020-08-19 07:58] LABS: Albumin 2.3 g/dL (3.4-5.0); BUN/Creatinine Ratio 35.9; Bilirubin, Total 0.4 mg/dL (0.2-1.0); Calcium 8.1 mg/dL (8.5-10.1); Magnesium 2.4 mg/dL (1.6-2.6); Phosphorus 3.2 mg/dL (2.5-4.90); Pre Albumin 9.8 mg/dL (20.0-40.0); Total Protein 5.7 g/dL (6.4-8.2)
[2020-08-19 09:00] VITALS: BP 113/68
[2020-08-19] MEDS: cefTRIAXone 1GM/50ML D5W 50 ML IV SCH (09:06)
[2020-08-19] MEDS: SODIUM CHLOR 0.9% PF (SALINE LOCK) 10ML VIAL/SYR IV SCH ×2 (09:06→22:00)
[2020-08-19] MEDS: PANTOPRAZOLE 40 MG/10 ML VIAL INJ IV SCH (09:06)
--- NOTE | 2020-08-19 10:29 | NUR ---
Pain Patient complains of abdominal pain 8/10 and is requesting pain medications. Will medicate per orders. Will continue to monitor Q1 hour and PRN.
--- NOTE | 2020-08-19 10:57 | NUR ---
Ambulating Patient ambulating in hallway with physical therapy.
--- NOTE | 2020-08-19 11:32 | NUR ---
Dr. Twin Ambriz at bedside MD discussing plan of care with patient and this RN. No new orders received, will continue to monitor Q1 hour and PRN.
[2020-08-19 13:00] VITALS: BP 107/55
--- NOTE | 2020-08-19 13:37 | NUR ---
Pain Patient complains of abdominal pain 8/10 and is requesting pain medications. Will medicate per orders. Will continue to monitor Q1 hour and PRN.
--- NOTE | 2020-08-19 16:25 | NUR ---
Ambulating Patient ambulating in hallway with physical therapy.
[2020-08-19 16:57] VITALS: BP 113/62
--- NOTE | 2020-08-19 17:50 | NUR ---
Pain Patient complains of abdominal pain 8/10 and is requesting pain medications. Will medicate per orders. Will continue to monitor Q1 hour and PRN.
--- NOTE | 2020-08-19 18:01 | NUR ---
FRAN Drain 35mls of sanguineous fluid emptied from FRAN drain.
--- NOTE | 2020-08-19 19:00 | NUR ---
Closing Note Report given to financial coordinator RN. No signs or symptoms of distress noted at this time.
--- NOTE | 2020-08-19 19:01 | NUR ---
Opening Shift Note Assumed care of patient, awake and alert. No S/S of distress/SOB or pain. Insructed on POC and to callfor assist PRN, will continue to monitor for changes Q1hr and PRN.
[2020-08-19] MEDS ORDERED: TPN PER PHARMACY IV NR ×11 (20:00)
[2020-08-19 22:00] VITALS: BP 124/71
[2020-08-20] MEDS: ACCU-CHEK COMFORT CURVE STRIP VI SCH ×4 (00:04→18:40)
[2020-08-20] MEDS: HYDROmorphone HCL 2 MG/ML VL IV PRN ×5 (04:21→21:58)
[2020-08-20 04:43] VITALS: BP 137/81
[2020-08-20] MEDS: metroNIDAZOLE 500MG/100ML 100 ML IV SCH ×3 (05:34→21:48)
[2020-08-20] MEDS: LEVOTHYROXINE SODIUM 50 MCG TAB PO SCH (05:37)
[2020-08-20] MEDS: InsuLIN REG 1unit/0.01ml Soln (100units/ml) SC SCH ×4 (05:40→18:00)
[2020-08-20 07:12] LABS: Potassium 3.6 mmol/L (3.5-5.1)
[2020-08-20 07:19] LABS: Albumin 2.3 g/dL (3.4-5.0); BUN/Creatinine Ratio 31.6; Bilirubin, Total 0.4 mg/dL (0.2-1.0); Calcium 8.1 mg/dL (8.5-10.1); Magnesium 2.3 mg/dL (1.6-2.6); Phosphorus 2.7 mg/dL (2.5-4.90); Total Protein 5.8 g/dL (6.4-8.2)
--- NOTE | 2020-08-20 07:26 | NUR ---
ENDORSED CARE TO AM SHIFT RN
--- NOTE | 2020-08-20 07:35 | NUR ---
Opening Note Received report from overnight associate RN. Patient is awake, alert and oriented x4. No signs or symptoms of distress noted at this time. Patient has NG tube to left nares, set to continuos suction. Patient has Stoll catheter in place, patent and draining. Midline abdominal incision is open to air, FRAN drain to right lower quadrant draining sanguinous fluid. Reviewed plan of care with patient, patient verbalized understanding. Bed in low and locked position, call light within reach. Will continue to monitor Q1 hour and PRN.
--- NOTE | 2020-08-20 08:05 | NUR ---
Dr. Twin Ambriz at bedside MD discussing plan of care with patient and this RN. No new orders received. Will continue to monitor Q1 hour and PRN.
[2020-08-20 09:12] VITALS: BP 120/65
--- NOTE | 2020-08-20 09:34 | NUR ---
Pain Patient complains of abdominal pain 8/10 and is requesting pain medications. Will medicate per orders. Will continue to monitor Q1 hour and PRN.
--- NOTE | 2020-08-20 09:57 | NUR ---
Ambulating Patient ambulating in hallway with physical therapy.
[2020-08-20] MEDS: cefTRIAXone 1GM/50ML D5W 50 ML IV SCH (10:15)
[2020-08-20] MEDS: PANTOPRAZOLE 40 MG/10 ML VIAL INJ IV SCH (10:16)
[2020-08-20] MEDS: SODIUM CHLOR 0.9% PF (SALINE LOCK) 10ML VIAL/SYR IV SCH ×2 (10:16→22:00)
[2020-08-20 13:00] VITALS: BP 119/63
--- NOTE | 2020-08-20 14:53 | NUR ---
Nutrition Followup Notes Pt wt is 127.5 kg Pt is currently NPO with TPN @ 73 ml/hr providing 1490 kcals, 110g protein and 1050 NPCs. PN support meets 86-109% of est energy needs and 155-200% of est protein needs. Continue to advance TPN to meet >75% of needs, advance diet as medically feasible Est energy needs 1968-9207 kcal (11-14 kcal/kg BW 124.4kg) Est protein needs 55-71g (1-1.3g/kg IBW 54.5kg) Will reassess prn. LABS: Alb 2.3 L, Gluc 127 H GI: Pt had no Bm today per RN doc. BS: 18 mod risk. Refer to wound assessment report for full details. PES: 1) Inadequate oral intake r/t current medical condition aeb pt with NPO diet order 2) Decreased nutrient needs r/t adiposity aeb pt with a BMI of 47.1kg/m2 and 228% of IBW Malnutrition related to morbid Weight 200% of ideal wt Malnutrition related to morbid obesity Yes Comments 1) Continue to monitor NPO status, labs, skin 2) Refer pt to [facility]PD on DC 3) Continue current plan of care
[2020-08-20 16:50] VITALS: BP 103/63
--- NOTE | 2020-08-20 19:23 | NUR ---
Closing Note Report given to material handler 2nd shift RN. No signs or symptoms of distress noted at this time.
[2020-08-20] MEDS ORDERED: TPN PER PHARMACY IV NR ×11 (20:00)
[2020-08-20 22:00] VITALS: BP 142/66
[2020-08-21] MEDS: InsuLIN REG 1unit/0.01ml Soln (100units/ml) SC SCH ×5 (00:34→23:50)
[2020-08-21] MEDS: HYDROmorphone HCL 2 MG/ML VL IV PRN ×7 (03:01→23:45)
[2020-08-21] MEDS: LEVOTHYROXINE SODIUM 50 MCG TAB PO SCH (05:52)
[2020-08-21] MEDS: metroNIDAZOLE 500MG/100ML 100 ML IV SCH ×3 (05:52→22:10)
[2020-08-21] MEDS: ACCU-CHEK COMFORT CURVE STRIP VI SCH ×5 (06:11→23:50)
--- NOTE | 2020-08-21 07:29 | NUR ---
OPENING SHIFT NOTE ASSUMED CARE OF PATIENT FROM OUTSIDE PLANT FIELD ENGINEER RN WALT. PATIENT IS AWAKE, ALERT, AND ORIENTED X4. PATIENT HAS NO S/S OF DISTRESS/SOB OR PAIN AT THIS TIME. INSTRUCTED PATIENT ON POC, PATIENT VERBALIZED UNDERSTANDING. BED IS IN LOWEST POSITION WITH SIDE RAILS RAISED X2, BED WHEELS LOCKED, LUCAS IS HANGING BELOW BLADDER AND IS DRAINING ORANGE URINE, NGT IN LEFT NARE HOOKED UP TO CONTINUOUS SUCTION, DRAINING GREEN BILE, AND CALL LIGHT IS WITHIN REACH. WILL CONTINUE TO MONITOR.
--- NOTE | 2020-08-21 07:29 | NUR ---
CARE ENDORSED TO AM SHIFT RN Notified am shift RN about plan of care and rounding first on pt.
[2020-08-21 07:51] LABS: Albumin 2.2 g/dL (3.4-5.0); Calcium 8.2 mg/dL (8.5-10.1); Magnesium 2.3 mg/dL (1.6-2.6); Potassium 3.7 mmol/L (3.5-5.1)
[2020-08-21 07:55] LABS: BUN/Creatinine Ratio 25.6; Bilirubin, Total 0.4 mg/dL (0.2-1.0); Phosphorus 2.7 mg/dL (2.5-4.90); Total Protein 6.1 g/dL (6.4-8.2)
[2020-08-21 07:58] VITALS: BP 128/76
[2020-08-21 09:00] VITALS: BP 128/76
[2020-08-21] MEDS: SODIUM CHLOR 0.9% PF (SALINE LOCK) 10ML VIAL/SYR IV SCH ×2 (10:23→22:10)
[2020-08-21] MEDS: PANTOPRAZOLE 40 MG/10 ML VIAL INJ IV SCH (10:23)
[2020-08-21] MEDS: cefTRIAXone 1GM/50ML D5W 50 ML IV SCH (10:23)
--- NOTE | 2020-08-21 10:30 | NUR ---
NGT removal NGT removed per MD order following explanation and instruction to patient. Patient verbalized understanding prior to removal. Patient tolerated well.
--- NOTE | 2020-08-21 10:45 | NUR ---
MD GREGORY AT BEDSIDE. UPDATED MD ON PATIENT'S STATUS, MD IS AWARE. NO NEW ORDERS GIVEN.
[2020-08-21 13:00] VITALS: BP 108/63
[2020-08-21 17:00] VITALS: BP 124/79
--- NOTE | 2020-08-21 19:36 | NUR ---
CLOSING SHIFT NOTE ENDORSED CARE TO HOME HEALTH NURSE LICENSED PRACTICAL FABRICIO CONNOLLY. PATIENT HAS NO S/S OF DISTRESS/SOB OR PAIN AT THIS TIME.
[2020-08-21] MEDS ORDERED: TPN PER PHARMACY IV NR ×11 (20:00)
[2020-08-21 21:36] VITALS: BP 145/85
--- NOTE | 2020-08-21 22:00 | NUR ---
NOTED AT THIS TIME ANTIBIOTIC FROM PREVIOUS SHIFT HANG BUT NOT RUN CALL PHARMACIST INSTRUCTED TO DISCARD ANTIBIOTIC AND HANG 22OO
[2020-08-22] MEDS: HYDROmorphone HCL 2 MG/ML VL IV PRN ×6 (04:06→22:58)
[2020-08-22 05:27] VITALS: BP 129/78
[2020-08-22] MEDS: InsuLIN REG 1unit/0.01ml Soln (100units/ml) SC SCH ×3 (05:39→18:00)
[2020-08-22] MEDS: LEVOTHYROXINE SODIUM 50 MCG TAB PO SCH (05:40)
[2020-08-22] MEDS: metroNIDAZOLE 500MG/100ML 100 ML IV SCH ×3 (05:40→21:37)
[2020-08-22] MEDS: ACCU-CHEK COMFORT CURVE STRIP VI SCH ×3 (05:40→18:00)
[2020-08-22 05:59] LABS: Basophils # (auto) 0.1 10 ^3/uL (0-0.2); Eosinophils # (auto) 0.4 10 ^3/uL (0-0.8); Lymphocytes # (auto) 1.5 10 ^3/uL (0.4-5.4); Mean Corpuscular Volume 101.3 fL (80.0-100.0); Monocytes # (auto) 0.6 10 ^3/uL (0-1.3)
[2020-08-22 06:03] LABS: Basophils % (auto) 1.2 % (0.0-2.0); Eosinophils % (auto) 4.9 % (0.0-7.0); Hematocrit 30.3 % (36.0-46.0); Hemoglobin 10.4 g/dL (12.2-16.2); Lymphocytes % (auto) 16.7 % (10.0-50.0); Mean Corpuscular Hemoglobin 34.7 pg (28.0-32.0); Mean Corpuscular Hgb Conc. 34.3 g/dL (32.0-36.0); Monocytes % (auto) 6.6 % (0.0-12.0); Neutrophils # (auto) 6.1 10 ^3/uL (1.6-8.6); Neutrophils % (auto) 70.6 % (37.0-80.0); Nucleated Red Blood Cells % 0.2 %; Platelet Count (auto) 369 10^3/uL (140-450); Red Blood Cells 2.99 10^6/uL (4.0-5.20); Red Cell Distribution Width 17.1 % (11.8-14.3); White Blood Cell 8.7 10^3/uL (4.4-10.8)
[2020-08-22 06:26] LABS: Potassium 3.8 mmol/L (3.5-5.1)
[2020-08-22 06:35] LABS: Albumin 2.2 g/dL (3.4-5.0); BUN/Creatinine Ratio 23.7; Bilirubin, Total 0.4 mg/dL (0.2-1.0); Calcium 8.3 mg/dL (8.5-10.1); Magnesium 2.2 mg/dL (1.6-2.6); Phosphorus 3.3 mg/dL (2.5-4.90); Total Protein 6.2 g/dL (6.4-8.2)
--- NOTE | 2020-08-22 06:37 | NUR ---
DRAINED EMPTIED AT THIS TIME 30ML OF SANGUINEOUS DRAINAGE NOTED. DRAIN COMPRESSED AND FUNCTIONING APPROPRIATELY
--- NOTE | 2020-08-22 06:40 | NUR ---
END OF SHIFT NOTE WILL ENDORSE PT CARE TO DAY SHIFT RN. PT IS AOX4,NO S/S OF DISTRESS OR SOB
[2020-08-22] MEDS: PANTOPRAZOLE 40 MG/10 ML VIAL INJ IV SCH (09:16)
[2020-08-22] MEDS: cefTRIAXone 1GM/50ML D5W 50 ML IV SCH (09:16)
[2020-08-22] MEDS: SODIUM CHLOR 0.9% PF (SALINE LOCK) 10ML VIAL/SYR IV SCH ×2 (09:16→21:38)
[2020-08-22] MEDS ORDERED: KETOROLAC TROMETH 30 MG/ML 1ML VIAL IV ONE (11:00)
--- NOTE | 2020-08-22 11:03 | NUR ---
Nutrition Followup Notes Wt: 127.4 kg Pt is currently NPO with TPN @ 73 ml/hr providing 1490 kcals, 110g protein and 1050 NPCs. PN support meets 86-109% of est energy needs and 155-200% of est protein needs. Est energy needs 7040-1558 kcal (11-14 kcal/kg BW 124.4kg), Est protein needs 55-71g (1-1.3g/kg IBW 54.5kg). Will reassess prn. LABS: GLU 141 H CA 8.3 L ALB 2.2 L GI: Pt had 1 BM today per RN doc. BS: 16 mod risk. Refer to wound assessment report for full details. PES: 1) Inadequate oral intake r/t current medical condition aeb pt with NPO diet order 2) Decreased nutrient needs r/t adiposity aeb pt with a BMI of 47.1kg/m2 and 228% of IBW Comments: Will Continue to monitor NPO status, labs, skin PN tolerance, F/u high 2-3 days Rec: 1) continue PN support to meet > 75% of needs. 2) advance diet as medically feasible. 2) Refer pt to OPD on DC 3) Continue current plan of care
--- NOTE | 2020-08-22 12:30 | NUR ---
Dr. Baker paged Dr. Baker paged regarding patient passing flatus and had a smeared BM on 08/21/20. Patient requesting to be upgraded to clear liquid. Awaiting call back.
[2020-08-22 13:00] VITALS: BP 102/65
--- NOTE | 2020-08-22 13:23 | NUR ---
2nd page Dr. Olivia Baker paged regarding patient passing flatus and had a smeared BM on 08/21/20. Patient requesting to be upgraded to clear liquid. Awaiting call back.
--- NOTE | 2020-08-22 16:30 | NUR ---
PICC LINE DRESSING CHANGED Picc line dressing changed at this time per hospital protocol using sterile technique. Patient tolerated well.
[2020-08-22 17:00] VITALS: BP 111/64
--- NOTE | 2020-08-22 19:00 | NUR ---
FRAN drain/closing shift note patient resting in bed. No complaints of pain at this time. FRAN drain output 5ml of serosanguineous fluid.
--- NOTE | 2020-08-22 19:25 | NUR ---
Opening Shift Note Assumed care of patient, awake and alert. No S/S of distress/SOB or pain. FRAN drain noted in RLQ, open to air, sutures intact, minimal drainage noted. Medial abdomen surgical incision noted, flako intact, open to air, clean and dry. Safety measures in place, bed in lowest locked position, bed rails raised x2, call light within reach. All needs addressed at this time. Instructed on POC and to call for assist PRN, will continue to monitor for changes Q1hr and PRN.
[2020-08-22] MEDS ORDERED: TPN PER PHARMACY IV NR ×10 (20:00)
[2020-08-22 21:00] VITALS: BP 125/71
[2020-08-22] MEDS: PROMETHAZINE HCL 25 MG/ML 1ML IV PRN (22:58)
[2020-08-23] MEDS: ACCU-CHEK COMFORT CURVE STRIP VI SCH ×2 (00:06→06:19)
--- NOTE | 2020-08-23 01:45 | NUR ---
Pt called nurses station complaining of feeling hot and requesting an ice pack. Pt temperature recorded as 98.2. Pt provided with ice pack and educated on s/s of post op infection. Pt verbalized understanding. Will continue to monitor.
[2020-08-23] MEDS: HYDROmorphone HCL 2 MG/ML VL IV PRN ×5 (04:10→20:25)
[2020-08-23 05:00] VITALS: BP 114/67
[2020-08-23] MEDS: metroNIDAZOLE 500MG/100ML 100 ML IV SCH ×3 (06:19→21:57)
[2020-08-23] MEDS: InsuLIN REG 1unit/0.01ml Soln (100units/ml) SC SCH ×2 (06:29)
[2020-08-23 06:30] LABS: Potassium 3.7 mmol/L (3.5-5.1)
[2020-08-23 06:42] LABS: Albumin 2.3 g/dL (3.4-5.0); BUN/Creatinine Ratio 26.2; Bilirubin, Total 0.4 mg/dL (0.2-1.0); Calcium 8.3 mg/dL (8.5-10.1); Magnesium 2.3 mg/dL (1.6-2.6); Phosphorus 3.2 mg/dL (2.5-4.90); Total Protein 6.2 g/dL (6.4-8.2)
[2020-08-23] MEDS: LEVOTHYROXINE SODIUM 50 MCG TAB PO SCH (06:49)
--- NOTE | 2020-08-23 08:00 | NUR ---
Opening Shift Note Assumed care of patient, resting, even unlabored respirations. No S/S of distress/SOB or pain. Bed in lowest/locked position, bed rails up x2, call light within rech. Will continue to monitor for changes Q1hr and PRN.
[2020-08-23] MEDS: cefTRIAXone 1GM/50ML D5W 50 ML IV SCH (08:39)
[2020-08-23] MEDS: PANTOPRAZOLE 40 MG/10 ML VIAL INJ IV SCH (08:39)
[2020-08-23] MEDS: SODIUM CHLOR 0.9% PF (SALINE LOCK) 10ML VIAL/SYR IV SCH ×2 (08:47→21:58)
[2020-08-23 09:00] VITALS: BP 103/62
[2020-08-23] MEDS ORDERED: HYDROcodone-ACET 5/325MG TAB PO PRN (11:00)
--- NOTE | 2020-08-23 11:00 | NUR ---
MD ROUNDS DR GREGORY AT BEDSIDE. NEW ORDERS RECEIVED/WILL CARRY OUT. WILL CONTINUE TO MONITOR
--- NOTE | 2020-08-23 11:40 | NUR ---
TPN D/C TPN PER PROTOCOL. DECREASED 73 ML/HR TO 35ML/HR. BLOOD SUGAR 95. WILL CONTINUE TO MONITOR
[2020-08-23] MEDS: PHENAZOPYRIDINE HCL 100 MG TAB PO SCH ×2 (12:11→17:43)
[2020-08-23 13:00] VITALS: BP 114/64
--- NOTE | 2020-08-23 14:27 | NUR ---
LAB UA SENT PER MD ORDERS
[2020-08-23 15:15] LABS: Urine Bacteria NONE SEEN /hpf (None Seen); Urine Blood Negative /uL (Negative); Urine Specific Gravity 1.015 (1.001-1.035); Urine WBC <1 /hpf (0 - 5)
--- NOTE | 2020-08-23 15:45 | NUR ---
TPN TPN D/C'ED PER MD ORDERS
--- NOTE | 2020-08-23 16:40 | NUR ---
AMBULATION PATIENT AMBULATING IN HALLWAYS. NO S/S OF DISTRESS, SOB, PAIN NOTED. WILL CONTINUE TO MONITOR
--- NOTE | 2020-08-23 16:47 | NUR ---
FRAN DRAIN EMPTIED APPROXIMATELY 10 ML SANGUINOUS FLUID FROM RLQ FRAN DRAIN
[2020-08-23 17:00] VITALS: BP 113/76
--- NOTE | 2020-08-23 19:30 | NUR ---
Opening Shift Note Assumed care of patient, awake and alert. No S/S of distress/SOB or pain. FRAN drain noted in RLQ, open to air, sutures intact, moderate brown drainage noted. Medial abdomen surgical incision noted, flako intact, open to air, clean and dry. Safety measures in place, bed in lowest locked position, bed rails raised x2, call light within reach. All needs addressed at this time. Instructed on POC and to call for assist PRN, will continue to monitor for changes Q1hr and PRN
[2020-08-23] MEDS ORDERED: TPN PER PHARMACY IV NR ×10 (20:00)
--- NOTE | 2020-08-23 20:30 | NUR ---
Pt concerned about FRAN. Pt called station to speak with this RN about concerns regarding her FARN drain. Pt states that over the past 3 hours, she noticed her FRAN draining a dark colored fluid. FRAN assessed at this time and noted to have approximately 10mL of dark brown colored drainage. Pt states that Dr. Baker advised her that if the drainage color changes to any color other than red, then there may be cause for concern. Pt reports pain in lower left quadrant. Pt VS are WNL, pt passing gas and has been having bowel movements. Diet was advanced to full liquid earlier today. This RN attempted to contact Dr. Baker but MD unavailable at this time. Will page hospitalist to inform. Will continue to monitor.
[2020-08-23 21:33] VITALS: BP 144/70
--- NOTE | 2020-08-23 22:00 | NUR ---
Hospitalist paged regarding FRAN drain. Awaiting call back.
--- NOTE | 2020-08-23 22:57 | NUR ---
Received call back from hospitalist regarding FRAN. LOG CHIPPER OPERATOR states to inform Dr. Baker tomorrow morning and wait for him to round on the patient. Will continue to monitor.
[2020-08-24] MEDS: D5W/SOD CHL 0.45%/KCL 20MEQ 1,000 ML IV SCH ×2 (00:15→11:49)
[2020-08-24] MEDS: HYDROmorphone HCL 2 MG/ML VL IV PRN ×7 (00:27→23:27)
[2020-08-24 05:13] VITALS: BP 119/63
--- NOTE | 2020-08-24 05:30 | NUR ---
FRAN drainage, 30mL of green fluid removed from drain. Pt states she is experiencing an increase in a stabbing pain in her lower left abdomen. VS WNL. Will endorse care to day shift and advise to notify Dr. Baker of change of status.
[2020-08-24] MEDS: metroNIDAZOLE 500MG/100ML 100 ML IV SCH ×3 (05:32→23:05)
[2020-08-24] MEDS: LEVOTHYROXINE SODIUM 50 MCG TAB PO SCH (06:23)
[2020-08-24 06:35] LABS: Albumin 2.5 g/dL (3.4-5.0); Calcium 8.6 mg/dL (8.5-10.1); Magnesium 2.3 mg/dL (1.6-2.6)
[2020-08-24 06:40] LABS: BUN/Creatinine Ratio 15.9; Bilirubin, Total 0.5 mg/dL (0.2-1.0); Phosphorus 3.2 mg/dL (2.5-4.90); Total Protein 6.4 g/dL (6.4-8.2)
--- NOTE | 2020-08-24 08:00 | NUR ---
PAGE PAGED DR BENITES RE: PATIENT STATUS OF FRAN DRAIN. AWAITING RETURN CALL
--- NOTE | 2020-08-24 08:20 | NUR ---
FRAN DRAIN EMPTIED APPROXIMATELY 10 ML BROWNISH GREENISH FLUID FROM RLQ FRAN DRAIN
[2020-08-24 08:42] VITALS: BP 125/68
[2020-08-24] MEDS: SODIUM CHLOR 0.9% PF (SALINE LOCK) 10ML VIAL/SYR IV SCH ×2 (08:43→23:06)
[2020-08-24] MEDS: PHENAZOPYRIDINE HCL 100 MG TAB PO SCH ×3 (08:43→17:40)
[2020-08-24] MEDS: cefTRIAXone 1GM/50ML D5W 50 ML IV SCH (08:43)
[2020-08-24] MEDS: PANTOPRAZOLE 40 MG/10 ML VIAL INJ IV SCH (08:43)
--- NOTE | 2020-08-24 09:45 | NUR ---
MD ROUNDS DR GREGORY AT BEDSIDE. NEW ORDERS RECEIVED/WILL CARRY OUT. WILL CONTINUE TO MONITOR
--- NOTE | 2020-08-24 10:00 | NUR ---
RETURN CALL DR BENITES RETURNED CALL RE: PATIENT FRAN DRAIN. NO NEW ORDERS RECEIVED AT THIS TIME. WILL CONTINUE TO MONITOR
[2020-08-24 12:52] VITALS: BP 95/72
[2020-08-24] MEDS ORDERED: OMNIPAQUE ORAL SOLN 500ml 12mg/ml PO ONE (13:11)
[2020-08-24] MEDS: PROMETHAZINE HCL 25 MG/ML 1ML IV PRN (14:09)
[2020-08-24] MEDS ORDERED: IOHEXOL 300 MG/ML 100ML BOTTLE IJ ONE (15:10)
--- NOTE | 2020-08-24 15:46 | NUR ---
Nutrition Followup Notes Wt: 125.5 kg Pt was with assisted living nursing director at time of rounds. Pt was receiving TPN, d/c'd by MD and diet was advanced to full liquid diet. Pt diet is NPO again per MD note. Pt consumed 1 po of full liquid diet of 25% on 08/23 per Rn note. Consider restarting TPN if pt to be NPO >48hrs Est energy needs 5261-3892 kcal (11-14 kcal/kg BW 124.4kg), Est protein needs 55-71g (1-1.3g/kg IBW 54.5kg). Will reassess prn. LABS: Creat 0.44L, Alb 2.5L GI: Pt had 7 BMs today per RN doc, GI notes says pt has diarrhea BS: 16 mod risk. Refer to wound assessment report for full details. PES: 1) Inadequate oral intake r/t current medical condition aeb pt with NPO diet order 2) Decreased nutrient needs r/t adiposity aeb pt with a BMI of 47.1kg/m2 and 228% of IBW Comments: Will Continue to monitor NPO status, labs, skin, F/u high 2-3 days Rec: 1) Consider restarting TPN if pt to be NPO >48hrs 2) advance diet as medically feasible. 2) Refer pt to OPD on DC 3) Continue current plan of care
[2020-08-24 17:00] VITALS: BP 123/68
[2020-08-24] MEDS: KETOROLAC TROMETH 30 MG/ML 1ML VIAL IV PRN (17:40)
--- NOTE | 2020-08-24 17:44 | NUR ---
FRAN DRAIN EMPTIED APPROXIMATELY 10 ML BROWNISH GREENISH FLUID FROM RLQ FRAN DRAIN
--- NOTE | 2020-08-24 19:40 | NUR ---
OPENING SHIFT NOTE PT IS RESTING IN BED WITH EYES OPEN AND RESP RATE IS EVEN AND UNLABORED. PT HAS CLSSIC ABD INCISION WITH SARAN THAT IS CDI AND WELL APPROXIMATED. FRAN IS WITH GREEN DRAINAGE. ABD IS SOFT AND NONDISTENDED. LUQ/LLQ ABD SOUNDS ARE WITH HYPO BS AND RUQ/RLQ ABD SOUNDS ARE ACTIVE/WNL. PT REPORTS THAT SHE HAS BEEN EXPERIENCING ABD PAIN ON THE LUQ, LLQ, AND LEFT FLANK AREA TODAY. WILL CONTINUE TO MONITOR AND MEDICATE PER ORDERS. PT FURTHER REPORTS SHE IS PASSING FLATUS AND HAVING LOOSE STOOLS DAILY. POC DISCUSSED WITH PT AND PT VERBALIZES UNDERSTANDING. BED IS LOW, WHEELS ARE LOCKED, AND CALL LIGHT IS WITH IN REACH.
[2020-08-24 21:42] VITALS: BP 115/65
[2020-08-25] MEDS: KETOROLAC TROMETH 30 MG/ML 1ML VIAL IV PRN ×4 (00:15→21:00)
[2020-08-25] MEDS: HYDROmorphone HCL 2 MG/ML VL IV PRN ×5 (04:47→20:59)
[2020-08-25 05:00] VITALS: BP 117/65
[2020-08-25] MEDS: metroNIDAZOLE 500MG/100ML 100 ML IV SCH ×3 (05:45→20:58)
[2020-08-25 05:50] LABS: Basophils # (auto) 0.1 10 ^3/uL (0-0.2); Basophils % (auto) 1.2 % (0.0-2.0); Eosinophils # (auto) 0.4 10 ^3/uL (0-0.8); Eosinophils % (auto) 4.1 % (0.0-7.0); Hematocrit 27.9 % (36.0-46.0); Hemoglobin 9.2 g/dL (12.2-16.2); Lymphocytes # (auto) 1.1 10 ^3/uL (0.4-5.4); Lymphocytes % (auto) 11.3 % (10.0-50.0); Mean Corpuscular Hemoglobin 33.7 pg (28.0-32.0); Mean Corpuscular Hgb Conc. 32.9 g/dL (32.0-36.0); Mean Corpuscular Volume 102.3 fL (80.0-100.0); Monocytes # (auto) 0.9 10 ^3/uL (0-1.3); Monocytes % (auto) 9.1 % (0.0-12.0); Neutrophils # (auto) 7.1 10 ^3/uL (1.6-8.6); Neutrophils % (auto) 74.3 % (37.0-80.0); Platelet Count (auto) 358 10^3/uL (140-450); Red Blood Cells 2.72 10^6/uL (4.0-5.20); Red Cell Distribution Width 17.2 % (11.8-14.3); White Blood Cell 9.5 10^3/uL (4.4-10.8)
[2020-08-25 06:08] LABS: BUN/Creatinine Ratio 10.3; Calcium 7.5 mg/dL (8.5-10.1); Potassium 5.5 mmol/L (3.5-5.1)
--- NOTE | 2020-08-25 06:23 | NUR ---
LAB CALLED WITH CRITICAL SERUM GLUCOSE OF 465. PT HAS D51/2NSW/20KCL INFUSING. WILL STOP INFUSION AND REDRAW NOW.
--- NOTE | 2020-08-25 06:33 | NUR ---
BMP RE DRAWN AT THIS TIME.
[2020-08-25 07:19] LABS: Calcium 7.8 mg/dL (8.5-10.1); Potassium 3.7 mmol/L (3.5-5.1)
[2020-08-25] MEDS: LEVOTHYROXINE SODIUM 50 MCG TAB PO SCH (07:19)
--- NOTE | 2020-08-25 07:23 | NUR ---
AFTER BLOOD REDRAWN THE SERUM GLUCOSE =128 AND POTASSIUM=3.7
[2020-08-25 09:00] VITALS: BP 93/57
[2020-08-25] MEDS: cefTRIAXone 1GM/50ML D5W 50 ML IV SCH (09:39)
[2020-08-25] MEDS: PHENAZOPYRIDINE HCL 100 MG TAB PO SCH (09:39)
[2020-08-25] MEDS: PANTOPRAZOLE 40 MG/10 ML VIAL INJ IV SCH (09:39)
[2020-08-25] MEDS: SODIUM CHLOR 0.9% PF (SALINE LOCK) 10ML VIAL/SYR IV SCH ×2 (09:46→20:59)
--- NOTE | 2020-08-25 10:15 | NUR ---
MD ROUNDS DR GREGORY AT BEDSIDE DISCUSSING POC WITH PATIENT. NEW ORDERS RECEIVED/WILL CARRY OUT. WILL CONTINUE TO MONITOR
[2020-08-25] MEDS ORDERED: TPN PER PHARMACY 0 ML IV SCH (10:30)
[2020-08-25 10:57] LABS: Magnesium 2.1 mg/dL (1.6-2.6)
[2020-08-25 11:01] LABS: Phosphorus 2.1 mg/dL (2.5-4.90)
[2020-08-25 11:38] LABS: Albumin 2.1 g/dL (3.4-5.0); Bilirubin, Direct 0.2 mg/dL (0-0.2)
[2020-08-25 11:41] LABS: Bilirubin, Total 0.4 mg/dL (0.2-1.0); Total Protein 5.6 g/dL (6.4-8.2)
[2020-08-25] MEDS ORDERED: SODIUM PHOSP 40 MEQ in D5W 5% 250 ML IV ONE (11:45)
[2020-08-25] MEDS: D5W/SOD CHL 0.45%/KCL 20MEQ 1,000 ML IV SCH ×2 (12:46→22:12)
[2020-08-25 16:42] VITALS: BP 103/65
[2020-08-25] MEDS ORDERED: TPN PER PHARMACY IV NR ×8 (20:00)
--- NOTE | 2020-08-25 21:00 | NUR ---
D5 1/2 NS W/ 20 KCL IV STOPPED WHEN TPN STARTED. PER MD COMMUNICATION ORDERS.
[2020-08-25 22:23] VITALS: BP 113/63
[2020-08-26] MEDS: HYDROmorphone HCL 2 MG/ML VL IV PRN ×5 (00:21→21:09)
[2020-08-26 05:00] VITALS: BP 115/68
[2020-08-26] MEDS: KETOROLAC TROMETH 30 MG/ML 1ML VIAL IV PRN ×3 (05:31→21:10)
[2020-08-26] MEDS: metroNIDAZOLE 500MG/100ML 100 ML IV SCH ×3 (05:32→21:09)
[2020-08-26 05:55] LABS: Basophils # (auto) 0 10 ^3/uL (0-0.2); Basophils % (auto) 0.3 % (0.0-2.0); Eosinophils # (auto) 0.4 10 ^3/uL (0-0.8); Eosinophils % (auto) 4.6 % (0.0-7.0); Hematocrit 29.9 % (36.0-46.0); Hemoglobin 10.1 g/dL (12.2-16.2); Lymphocytes # (auto) 1.3 10 ^3/uL (0.4-5.4); Lymphocytes % (auto) 13.4 % (10.0-50.0); Mean Corpuscular Hemoglobin 33.7 pg (28.0-32.0); Mean Corpuscular Hgb Conc. 33.9 g/dL (32.0-36.0); Mean Corpuscular Volume 99.4 fL (80.0-100.0); Monocytes # (auto) 0.8 10 ^3/uL (0-1.3); Monocytes % (auto) 7.7 % (0.0-12.0); Neutrophils # (auto) 7.3 10 ^3/uL (1.6-8.6); Nucleated Red Blood Cells % 0.1 %; Platelet Count (auto) 378 10^3/uL (140-450); Red Blood Cells 3.01 10^6/uL (4.0-5.20); Red Cell Distribution Width 16.8 % (11.8-14.3); White Blood Cell 9.8 10^3/uL (4.4-10.8)
[2020-08-26 06:15] LABS: Albumin 2.1 g/dL (3.4-5.0); Calcium 8.3 mg/dL (8.5-10.1); Magnesium 2.2 mg/dL (1.6-2.6); Potassium 3.3 mmol/L (3.5-5.1)
[2020-08-26 06:18] LABS: BUN/Creatinine Ratio 9.3
[2020-08-26 06:20] LABS: Bilirubin, Total 0.4 mg/dL (0.2-1.0); Phosphorus 3.6 mg/dL (2.5-4.90); Total Protein 6.1 g/dL (6.4-8.2)
[2020-08-26] MEDS: LEVOTHYROXINE SODIUM 50 MCG TAB PO SCH (06:45)
--- NOTE | 2020-08-26 06:57 | NUR ---
FRAN WITH 15MLS CLOUDY GREEN DRAINAGE THIS SHIFT.
[2020-08-26 08:00] VITALS: BP 124/80
[2020-08-26] MEDS: cefTRIAXone 1GM/50ML D5W 50 ML IV SCH (08:01)
[2020-08-26] MEDS: PANTOPRAZOLE 40 MG/10 ML VIAL INJ IV SCH (08:02)
[2020-08-26] MEDS: SODIUM CHLOR 0.9% PF (SALINE LOCK) 10ML VIAL/SYR IV SCH ×2 (08:02→21:09)
[2020-08-26] MEDS: POTASSIUM CHL 20MEQ/100ML 100 ML IV SCH ×2 (08:46→10:53)
[2020-08-26] MEDS ORDERED: DEXTROSE (50%) 50ML SYRG IV SCH (09:00)
[2020-08-26] MEDS: InsuLIN REG 1unit/0.01ml Soln (100units/ml) SC SCH ×3 (11:02→23:58)
[2020-08-26] MEDS: ACCU-CHEK COMFORT CURVE STRIP VI SCH ×3 (11:03→23:57)
--- NOTE | 2020-08-26 11:31 | NUR ---
Nutrition Followup Notes Wt: 125.5 kg Pt was sleeping with no family by bedside. pt s/p sx lap exp and anastomosis. pt is currently NPO resumed with PN support @ 46 ml/hr providing 1150 kcals and 50 gm proteins. pt with inadequate PN support Est energy needs 9670-3311 kcal (11-14 kcal/kg BW 124.4kg), Est protein needs 55-71g (1-1.3g/kg IBW 54.5kg). Will reassess prn. LABS: GLU 110 H CA 8.3 L ALB 2.1 L PREALB 8.0 L GI: Pt had 2 BMs today per RN doc, BS: 16 mod risk. Refer to wound assessment report for full details. PES: 1) Inadequate oral intake r/t current medical condition aeb pt with NPO diet order 2) Decreased nutrient needs r/t adiposity aeb pt with a BMI of 47.1kg/m2 and 228% of IBW Comments: Will Continue to monitor NPO status, PN tolerance, labs, skin, F/u high 2-3 days Rec: 1) advance PN to meet > 75% of needs. 2) advance diet as medically feasible. 2) Refer pt to OPD on DC 3) Continue current plan of care
[2020-08-26 12:00] VITALS: BP 114/68
[2020-08-26] MEDS: D5W/SOD CHL 0.45%/KCL 20MEQ 1,000 ML IV SCH (15:08)
--- NOTE | 2020-08-26 15:08 | NUR ---
PAGED MD ABEBE TO DISCONTINUE D5 FLUIDS PT IS ON TPN NOW
[2020-08-26 17:00] VITALS: BP 130/76
[2020-08-26] MEDS ORDERED: TPN PER PHARMACY IV NR ×8 (20:00)
[2020-08-26 21:57] VITALS: BP 112/74
[2020-08-27] MEDS: HYDROmorphone HCL 2 MG/ML VL IV PRN ×5 (00:02→22:13)
[2020-08-27 05:00] VITALS: BP 100/69
[2020-08-27] MEDS: InsuLIN REG 1unit/0.01ml Soln (100units/ml) SC SCH ×4 (06:00→23:42)
[2020-08-27] MEDS: metroNIDAZOLE 500MG/100ML 100 ML IV SCH ×3 (06:03→22:13)
[2020-08-27] MEDS: ACCU-CHEK COMFORT CURVE STRIP VI SCH ×4 (06:04→23:41)
[2020-08-27] MEDS: LEVOTHYROXINE SODIUM 50 MCG TAB PO SCH (06:04)
[2020-08-27] MEDS: KETOROLAC TROMETH 30 MG/ML 1ML VIAL IV PRN ×3 (06:05→19:00)
--- NOTE | 2020-08-27 06:24 | NUR ---
FRAN WITH 17MLS RED/BROWN DRAINAGE THIS SHIFT.
[2020-08-27 07:02] LABS: Potassium 3.6 mmol/L (3.5-5.1)
[2020-08-27 07:16] LABS: Albumin 2.2 g/dL (3.4-5.0); BUN/Creatinine Ratio 11.8; Bilirubin, Total 0.4 mg/dL (0.2-1.0); Calcium 8.2 mg/dL (8.5-10.1); Magnesium 2.5 mg/dL (1.6-2.6); Phosphorus 3.1 mg/dL (2.5-4.90); Total Protein 6.5 g/dL (6.4-8.2)
[2020-08-27 08:00] VITALS: BP 107/68
[2020-08-27] MEDS: cefTRIAXone 1GM/50ML D5W 50 ML IV SCH (08:57)
[2020-08-27] MEDS: SODIUM CHLOR 0.9% PF (SALINE LOCK) 10ML VIAL/SYR IV SCH ×2 (09:28→22:13)
[2020-08-27] MEDS: PANTOPRAZOLE 40 MG/10 ML VIAL INJ IV SCH (09:28)
[2020-08-27 12:00] VITALS: BP 124/73
[2020-08-27 16:50] VITALS: BP 125/76
--- NOTE | 2020-08-27 19:15 | NUR ---
Opening Shift Note Assumed care of patient from Meaghan, awake and alert. No S/S of distress/SOB or pain. Instructed on POC and to call for assist PRN, will continue to monitor for changes Q1hr and PRN.
[2020-08-27 20:00] VITALS: BP 124/75
[2020-08-27] MEDS ORDERED: TPN PER PHARMACY IV NR ×8 (20:00)
[2020-08-27 22:00] VITALS: BP 124/75
[2020-08-28] MEDS: HYDROmorphone HCL 2 MG/ML VL IV PRN ×4 (02:26→21:56)
[2020-08-28] MEDS: KETOROLAC TROMETH 30 MG/ML 1ML VIAL IV PRN ×3 (04:28→16:54)
[2020-08-28 05:00] VITALS: BP 114/75
[2020-08-28] MEDS: InsuLIN REG 1unit/0.01ml Soln (100units/ml) SC SCH ×3 (06:00→18:00)
[2020-08-28] MEDS: metroNIDAZOLE 500MG/100ML 100 ML IV SCH ×3 (06:18→21:55)
[2020-08-28] MEDS: ACCU-CHEK COMFORT CURVE STRIP VI SCH ×3 (06:18→18:00)
[2020-08-28] MEDS: LEVOTHYROXINE SODIUM 50 MCG TAB PO SCH (06:18)
[2020-08-28 07:15] LABS: Basophils # (auto) 0 10 ^3/uL (0-0.2); Basophils % (auto) 0.6 % (0.0-2.0); Eosinophils # (auto) 0.4 10 ^3/uL (0-0.8); Eosinophils % (auto) 5.6 % (0.0-7.0); Hematocrit 27.9 % (36.0-46.0); Hemoglobin 9.5 g/dL (12.2-16.2); Lymphocytes # (auto) 1.4 10 ^3/uL (0.4-5.4); Lymphocytes % (auto) 18.2 % (10.0-50.0); Mean Corpuscular Hemoglobin 33.7 pg (28.0-32.0); Mean Corpuscular Volume 99.2 fL (80.0-100.0); Monocytes # (auto) 0.5 10 ^3/uL (0-1.3); Monocytes % (auto) 6.9 % (0.0-12.0); Neutrophils # (auto) 5.3 10 ^3/uL (1.6-8.6); Neutrophils % (auto) 68.7 % (37.0-80.0); Nucleated Red Blood Cells % 0.1 %; Platelet Count (auto) 388 10^3/uL (140-450); Red Blood Cells 2.81 10^6/uL (4.0-5.20); Red Cell Distribution Width 16.8 % (11.8-14.3); White Blood Cell 7.8 10^3/uL (4.4-10.8)
[2020-08-28 07:32] LABS: Magnesium 2.3 mg/dL (1.6-2.6); Potassium 3.8 mmol/L (3.5-5.1)
[2020-08-28 07:35] LABS: Bilirubin, Total 0.2 mg/dL (0.2-1.0); Phosphorus 3.1 mg/dL (2.5-4.90)
[2020-08-28 08:00] VITALS: BP 122/79
[2020-08-28] MEDS: cefTRIAXone 1GM/50ML D5W 50 ML IV SCH (08:22)
[2020-08-28] MEDS: PANTOPRAZOLE 40 MG/10 ML VIAL INJ IV SCH (09:37)
[2020-08-28] MEDS: SODIUM CHLOR 0.9% PF (SALINE LOCK) 10ML VIAL/SYR IV SCH ×2 (09:37→21:55)
--- NOTE | 2020-08-28 10:40 | NUR ---
Nutrition Followup Notes Wt: 123.7 kg Pt was sleeping with no family by bedside. Pt s/p sx lap exp and anastomosis. Pt is currently NPO resumed with PN support @ 64 ml/hr providing 1670 kcals, 70 gm protein and 1390 NPCs. PN support provides 96-122% est energy needs and 99-127% est protein needs. Est energy needs 0574-5679 kcal (11-14 kcal/kg BW 124.4kg), Est protein needs 55-71g (1-1.3g/kg IBW 54.5kg). Will reassess prn. LABS: GLU 124 H CA 8.0 L ALB 2.0 L GI: Pt has BM every 7-12 hrs per RN doc, BS: 20 mod risk. Refer to wound assessment report for full details. PES: 1) Inadequate oral intake r/t current medical condition aeb pt with NPO diet order 2) Decreased nutrient needs r/t adiposity aeb pt with a BMI of 47.1kg/m2 and 228% of IBW Comments: Will Continue to monitor NPO status, PN tolerance, labs, skin, F/u high 2-3 days Rec: 1) advance PN to meet > 75% of needs. 2) advance diet as medically feasible. 3) Refer pt to OPD on DC 4) Continue current plan of care
--- NOTE | 2020-08-28 11:27 | NUR ---
Pt wants to leave AMA She spoke with Jaylene Pete in who said she would provide the patient with information and that she has very good insurance. She answered all questions and talked at length with the patient. Dr. Cavanaugh also went in and saw the patient and talked with her. After this, the patient decided she still wants to leave AMA and said she wants to get help and get on a new antidepressant. She said she no longer feels like committing suicide and can hardly believe she did it in the first place. She said she felt overwhelmed by going through a divorce and everyone taking her 's side and also dealing with pain and medical issues on top of it. This nurse was informed that we cannot hold the patient here at the hospital as we are not a psych hospital. Addendum: 08/29/20 at 1403 by CED CHRISTENSEN RN WRONG PATIENT! Please disregard!
[2020-08-28 12:00] VITALS: BP 134/77
[2020-08-28 16:50] VITALS: BP 118/64
[2020-08-28] MEDS: PROMETHAZINE HCL 25 MG/ML 1ML IV PRN (19:50)
[2020-08-28] MEDS ORDERED: TPN PER PHARMACY IV NR ×9 (20:00)
[2020-08-28 21:59] VITALS: BP 125/73
[2020-08-29] MEDS: ACCU-CHEK COMFORT CURVE STRIP VI SCH ×5 (00:06→23:43)
[2020-08-29] MEDS: InsuLIN REG 1unit/0.01ml Soln (100units/ml) SC SCH ×4 (00:06→18:05)
[2020-08-29] MEDS: KETOROLAC TROMETH 30 MG/ML 1ML VIAL IV PRN ×4 (00:09→18:44)
[2020-08-29] MEDS: HYDROmorphone HCL 2 MG/ML VL IV PRN ×3 (04:36→16:52)
[2020-08-29 05:00] VITALS: BP 94/64
[2020-08-29 06:15] LABS: Basophils # (auto) 0.1 10 ^3/uL (0-0.2); Basophils % (auto) 0.6 % (0.0-2.0); Eosinophils # (auto) 0.4 10 ^3/uL (0-0.8); Eosinophils % (auto) 4.8 % (0.0-7.0); Hematocrit 30.9 % (36.0-46.0); Hemoglobin 10.4 g/dL (12.2-16.2); Lymphocytes # (auto) 1.4 10 ^3/uL (0.4-5.4); Mean Corpuscular Hemoglobin 33.4 pg (28.0-32.0); Mean Corpuscular Hgb Conc. 33.8 g/dL (32.0-36.0); Mean Corpuscular Volume 98.8 fL (80.0-100.0); Monocytes # (auto) 0.6 10 ^3/uL (0-1.3); Monocytes % (auto) 6.9 % (0.0-12.0); Neutrophils # (auto) 6.3 10 ^3/uL (1.6-8.6); Neutrophils % (auto) 71.7 % (37.0-80.0); Platelet Count (auto) 446 10^3/uL (140-450); Red Blood Cells 3.12 10^6/uL (4.0-5.20); White Blood Cell 8.7 10^3/uL (4.4-10.8)
[2020-08-29] MEDS: metroNIDAZOLE 500MG/100ML 100 ML IV SCH (06:29)
[2020-08-29] MEDS: LEVOTHYROXINE SODIUM 50 MCG TAB PO SCH (06:30)
[2020-08-29 06:31] LABS: Albumin 2.3 g/dL (3.4-5.0); Calcium 8.7 mg/dL (8.5-10.1); Magnesium 2.2 mg/dL (1.6-2.6); Potassium 3.9 mmol/L (3.5-5.1)
[2020-08-29 06:34] LABS: Bilirubin, Total 0.3 mg/dL (0.2-1.0); Phosphorus 3.8 mg/dL (2.5-4.90); Total Protein 6.5 g/dL (6.4-8.2)
[2020-08-29 08:14] VITALS: BP 99/56
[2020-08-29] MEDS: SODIUM CHLOR 0.9% PF (SALINE LOCK) 10ML VIAL/SYR IV SCH ×2 (09:49→21:55)
[2020-08-29] MEDS: PANTOPRAZOLE 40 MG/10 ML VIAL INJ IV SCH (09:49)
[2020-08-29] MEDS: cefTRIAXone 1GM/50ML D5W 50 ML IV SCH (09:49)
[2020-08-29] MEDS: CEFEPIME 1 GM in SODIUM CHL 0.9% 50 ML IV ONE ×2 (10:59→12:08)
[2020-08-29] MEDS: CEFEPIME 1 GM in SODIUM CHL 0.9% 50 ML IV SCH ×2 (12:39→21:54)
[2020-08-29 12:48] VITALS: BP 111/54
--- NOTE | 2020-08-29 13:52 | NUR ---
PATIENT REPORTS THAT SHE HAS BEEN WALKING BY HERSELF IN THE HALLWAY AND IS DOING FINE. D/C FROM P.T. NURSING TO ASSIST PATIENT NEEDED.
--- NOTE | 2020-08-29 19:40 | NUR ---
Opening Shift Note Assumed care of patient. PT is awake and alert. Ambulating in hallway. No S/S of distress/SOB or pain. Instructed on POC and to call for assist PRN, will continue to monitor for changes Q1hr and PRN.
[2020-08-29] MEDS ORDERED: TPN PER PHARMACY IV NR ×9 (20:00)
[2020-08-29 22:00] VITALS: BP 114/71
[2020-08-29] MEDS: MORPHINE SULF INJ 2 MG/ML SYRINGE 1ML IV PRN (23:43)
[2020-08-30 05:00] VITALS: BP 108/76
--- NOTE | 2020-08-30 05:10 | NUR ---
PICC LINE DRESSING FALLING OFF. NEW PICC LINE DRESSING APPLIED WITH STERILE TECHNIQUE.
[2020-08-30 05:38] LABS: Basophils # (auto) 0.1 10 ^3/uL (0-0.2); Basophils % (auto) 0.6 % (0.0-2.0); Eosinophils # (auto) 0.4 10 ^3/uL (0-0.8); Eosinophils % (auto) 3.8 % (0.0-7.0); Lymphocytes # (auto) 1.3 10 ^3/uL (0.4-5.4); Lymphocytes % (auto) 13.3 % (10.0-50.0); Mean Corpuscular Hemoglobin 33.5 pg (28.0-32.0); Mean Corpuscular Hgb Conc. 31.3 g/dL (32.0-36.0); Mean Corpuscular Volume 106.8 fL (80.0-100.0); Monocytes # (auto) 0.7 10 ^3/uL (0-1.3); Monocytes % (auto) 6.7 % (0.0-12.0); Neutrophils # (auto) 7.6 10 ^3/uL (1.6-8.6); Neutrophils % (auto) 75.6 % (37.0-80.0); Nucleated Red Blood Cells % 0.1 %; Platelet Count (auto) 462 10^3/uL (140-450); Red Blood Cells 2.99 10^6/uL (4.0-5.20); Red Cell Distribution Width 17.7 % (11.8-14.3)
[2020-08-30] MEDS: LEVOTHYROXINE SODIUM 50 MCG TAB PO SCH (05:40)
[2020-08-30] MEDS: CEFEPIME 1 GM in SODIUM CHL 0.9% 50 ML IV SCH ×3 (05:41→21:31)
[2020-08-30] MEDS: ACCU-CHEK COMFORT CURVE STRIP VI SCH ×4 (05:41→23:16)
[2020-08-30] MEDS: InsuLIN REG 1unit/0.01ml Soln (100units/ml) SC SCH ×5 (05:41→23:15)
[2020-08-30] MEDS: MORPHINE SULF INJ 2 MG/ML SYRINGE 1ML IV PRN ×4 (05:42→20:19)
[2020-08-30] MEDS ORDERED: GASTROGRAFIN 30 ML SOL ONE (07:12)
[2020-08-30] MEDS ORDERED: IOHEXOL 300 MG/ML 100ML BOTTLE IJ ONE (07:13)
--- NOTE | 2020-08-30 07:38 | NUR ---
Opening Shift Note Assumed care of patient from noc shift rn, Will. PT is awake, Denies SOB, appears irritable with 10/10 abdominal pain. PT aware that pain medication is not due yet. Patient offered alternative prn pain med. TPN infusing at 63ml/hr. Instructed on POC and to call for assist PRN, will continue to monitor for changes Q1hr and PRN.
--- NOTE | 2020-08-30 07:48 | NUR ---
Patient off unit for CT.
[2020-08-30 07:59] LABS: Albumin 2.5 g/dL (3.4-5.0); Calcium 8.8 mg/dL (8.5-10.1); Magnesium 2.4 mg/dL (1.6-2.6); Potassium 4.7 mmol/L (3.5-5.1)
[2020-08-30 08:00] VITALS: BP 107/69
[2020-08-30 08:04] LABS: BUN/Creatinine Ratio 14.5; Bilirubin, Total 0.3 mg/dL (0.2-1.0); Total Protein 7.3 g/dL (6.4-8.2)
[2020-08-30] MEDS: KETOROLAC TROMETH 30 MG/ML 1ML VIAL IV PRN ×3 (08:11→23:11)
[2020-08-30 08:17] VITALS: BP 107/69
[2020-08-30] MEDS: PANTOPRAZOLE 40 MG/10 ML VIAL INJ IV SCH (10:55)
[2020-08-30] MEDS: SODIUM CHLOR 0.9% PF (SALINE LOCK) 10ML VIAL/SYR IV SCH ×2 (10:55→21:32)
[2020-08-30 12:53] VITALS: BP 115/76
--- NOTE | 2020-08-30 14:57 | NUR ---
Nutrition Followup Notes Wt: 124.3 kg Pt was with medical personnel by bedside with curtain drawn when rounded this morning. Pt s/p sx lap exp and anastomosis. Pt is with a Full liquid diet, appetite is fair aeb ave 50% PO intake over 3 meals per RN doc. Pt is also with PN support @ 63 ml/hr providing 1170 kcals, 110 gm protein and 730 NPCs. PN support provides 67-86% est energy needs and 155-200% est protein needs. Est energy needs 7490-2693 kcal (11-14 kcal/kg BW 124.4kg), Est protein needs 55-71g (1-1.3g/kg IBW 54.5kg). Will reassess prn. LABS: GLU 135 H, ALB 2.5 L GI: Pt has diarrhea per RN doc, BS: 19 low risk. Refer to wound assessment report for full details. PES: 1) Inadequate oral intake r/t current medical condition aeb pt with NPO diet order 2) Decreased nutrient needs r/t adiposity aeb pt with a BMI of 47.1kg/m2 and 228% of IBW Comments: Will Continue to monitor PO intake, labs, skin, F/u high 3-5 days Rec: 1) Advance PN to meet > 75% of needs. 2) Advance diet as medically feasible. 3) Refer pt to OPD on DC 4) Continue current plan of care
[2020-08-30 16:21] VITALS: BP 123/86
--- NOTE | 2020-08-30 19:15 | NUR ---
assumed care, pt. awake, talking over the phone, mid abdomen incision with flako dry and no s/s of infection, not in distress.
[2020-08-30] MEDS ORDERED: TPN PER PHARMACY IV NR ×9 (20:00)
[2020-08-30 22:58] VITALS: BP 119/69
--- NOTE | 2020-08-31 01:00 | NUR ---
ruth ann drain irrigated with 50ml ns.
[2020-08-31] MEDS: MORPHINE SULF INJ 2 MG/ML SYRINGE 1ML IV PRN ×5 (01:09→21:11)
[2020-08-31 05:22] VITALS: BP 122/63
[2020-08-31] MEDS: CEFEPIME 1 GM in SODIUM CHL 0.9% 50 ML IV SCH ×3 (05:30→21:56)
[2020-08-31] MEDS: InsuLIN REG 1unit/0.01ml Soln (100units/ml) SC SCH ×3 (05:46→17:56)
[2020-08-31] MEDS: ACCU-CHEK COMFORT CURVE STRIP VI SCH ×3 (05:47→17:43)
[2020-08-31] MEDS: LEVOTHYROXINE SODIUM 50 MCG TAB PO SCH (06:12)
[2020-08-31 07:29] LABS: Potassium 4.2 mmol/L (3.5-5.1)
[2020-08-31 07:36] LABS: Albumin 2.5 g/dL (3.4-5.0); Bilirubin, Total 0.4 mg/dL (0.2-1.0); Calcium 8.5 mg/dL (8.5-10.1); Magnesium 2.6 mg/dL (1.6-2.6); Phosphorus 3.8 mg/dL (2.5-4.90); Total Protein 6.8 g/dL (6.4-8.2)
--- NOTE | 2020-08-31 08:00 | NUR ---
Morning note Patient resting in bed with even and unlabored respirations on room air, no distress noted. Abdominal incision is open to air, well approximated, 36 flako intact, no drainage noted. FRAN drain present to the RLQ. TPN being administered per MD order. Instructed patient on POC, fall precautions, and to call for assistance as needed. patient verbalized understanding. Fall precautions in place with call light within reach.
[2020-08-31 09:00] VITALS: BP 127/74
[2020-08-31] MEDS: PANTOPRAZOLE 40 MG/10 ML VIAL INJ IV SCH (09:39)
[2020-08-31] MEDS: SODIUM CHLOR 0.9% PF (SALINE LOCK) 10ML VIAL/SYR IV SCH ×2 (09:50→22:50)
--- NOTE | 2020-08-31 10:15 | NUR ---
Patient status discussed with Dr. Afshan BLANC verbalized understanding.
--- NOTE | 2020-08-31 10:30 | NUR ---
Patient ambulated in hallway Steady gait noted.
[2020-08-31] MEDS: KETOROLAC TROMETH 30 MG/ML 1ML VIAL IV PRN ×2 (11:54→21:12)
[2020-08-31 13:00] VITALS: BP 112/62
--- NOTE | 2020-08-31 13:00 | NUR ---
was at bedside - Dr. Baker Orders received and read back to verify.
--- NOTE | 2020-08-31 13:45 | NUR ---
Patient tolerated diet well Patient denies ABD pain, N/V.
--- NOTE | 2020-08-31 15:15 | NUR ---
FRAN drain irrigated with 50mL sterile water
--- NOTE | 2020-08-31 16:20 | NUR ---
FRAN drain irrigated with 50mL sterile water.
--- NOTE | 2020-08-31 16:40 | NUR ---
RE: TPN Contacted Dr. Cavanaugh RE: discontinuing TPN. TPN to be continued per MD.
[2020-08-31 17:00] VITALS: BP 104/61
--- NOTE | 2020-08-31 18:04 | NUR ---
[place] removed with aseptic technique Surgical incision is well approximated, no drainage noted. Scabbing noted along incision site and staple removal sites. Patient tolerated well. Bed returned to lowest locked position with call light within reach.
--- NOTE | 2020-08-31 18:44 | NUR ---
RE: Intervention/order Patient refusing abdominal binder. Education provided. Patient verbalized understanding. Patient stated "I feel okay without it." Addendum: 08/31/20 at 1845 by Cami Nuñez RN Amended: Links added.
--- NOTE | 2020-08-31 18:45 | NUR ---
Closing note Patient resting in bed with even and unlabored respirations on room air, no distress noted. TPN being administered per MD order. Patient tolerating well. Surgical incision to medial abdomen is well approximated with no drainage noted. FRAN drain noted to the RLQ. Fall precautions in place with call light within reach.
--- NOTE | 2020-08-31 19:11 | NUR ---
Care endorsed to Nandini Farris RN.
[2020-08-31] MEDS ORDERED: TPN PER PHARMACY IV NR ×9 (20:00)
[2020-08-31 22:00] VITALS: BP 116/67
--- NOTE | 2020-08-31 23:45 | NUR ---
FRAN with 30mls cloudy green drainage emptied at this time. Then irrigated with 80mls sterile water. right away 15mls clear calvo fluid drained. Pt carol well.
[2020-09-01] MEDS: ACCU-CHEK COMFORT CURVE STRIP VI SCH ×2 (00:34→06:19)
--- NOTE | 2020-09-01 01:31 | NUR ---
Pt c/o itching at surgical site and Benadryl given per orders.
[2020-09-01 05:00] VITALS: BP 113/53
--- NOTE | 2020-09-01 05:30 | NUR ---
FRAN with 15mls cloudy calvo drainage now. (Total of 60 mls out this shift.)
[2020-09-01] MEDS: MORPHINE SULF INJ 2 MG/ML SYRINGE 1ML IV PRN ×2 (05:41→10:39)
[2020-09-01] MEDS: CEFEPIME 1 GM in SODIUM CHL 0.9% 50 ML IV SCH (05:42)
[2020-09-01] MEDS: InsuLIN REG 1unit/0.01ml Soln (100units/ml) SC SCH ×2 (06:00)
[2020-09-01] MEDS: LEVOTHYROXINE SODIUM 50 MCG TAB PO SCH (06:19)
[2020-09-01 07:25] LABS: Eosinophils # (auto) 0.4 10 ^3/uL (0-0.8); Hemoglobin 10.6 g/dL (12.2-16.2); Monocytes # (auto) 0.8 10 ^3/uL (0-1.3); Nucleated Red Blood Cells % 0.1 %
[2020-09-01 07:34] LABS: Basophils # (auto) 0.1 10 ^3/uL (0-0.2); Basophils % (auto) 0.8 % (0.0-2.0); Eosinophils % (auto) 4.3 % (0.0-7.0); Hematocrit 32.5 % (36.0-46.0); Lymphocytes # (auto) 1.4 10 ^3/uL (0.4-5.4); Lymphocytes % (auto) 15.6 % (10.0-50.0); Mean Corpuscular Hemoglobin 31.7 pg (28.0-32.0); Mean Corpuscular Hgb Conc. 32.7 g/dL (32.0-36.0); Monocytes % (auto) 8.9 % (0.0-12.0); Neutrophils # (auto) 6.2 10 ^3/uL (1.6-8.6); Neutrophils % (auto) 70.4 % (37.0-80.0); Red Blood Cells 3.35 10^6/uL (4.0-5.20); Red Cell Distribution Width 17.3 % (11.8-14.3); White Blood Cell 8.8 10^3/uL (4.4-10.8)
[2020-09-01 07:39] LABS: Albumin 2.5 g/dL (3.4-5.0); Calcium 8.5 mg/dL (8.5-10.1); Magnesium 2.3 mg/dL (1.6-2.6)
[2020-09-01 07:42] LABS: BUN/Creatinine Ratio 29.6; Bilirubin, Total 0.4 mg/dL (0.2-1.0); Phosphorus 3.5 mg/dL (2.5-4.90); Total Protein 6.8 g/dL (6.4-8.2)
--- NOTE | 2020-09-01 08:00 | NUR ---
Morning note Patient resting in bed with even and unlabored respirations on room air, no distress noted. Abdominal incision is open to air, well approximated, no drainage noted. FRAN drain present to the RLQ. TPN being administered per MD order. Instructed patient on POC, fall precautions, and to call for assistance as needed. patient verbalized understanding. Fall precautions in place with call light within reach.
[2020-09-01 08:46] LABS: Platelet Count (auto) 503 10^3/uL (140-450)
[2020-09-01 09:00] VITALS: BP 124/67
[2020-09-01] MEDS: SODIUM CHLOR 0.9% PF (SALINE LOCK) 10ML VIAL/SYR IV SCH (10:00)
[2020-09-01] MEDS: PANTOPRAZOLE 40 MG/10 ML VIAL INJ IV SCH (10:43)
--- NOTE | 2020-09-01 11:05 | NUR ---
was at bedside - Dr. Fisher This RN was at bedside. MD aware of the lower part of incision site leaking.
[2020-09-01] MEDS ORDERED: HYDROcodone-ACET 5/325MG TAB PO PRN (11:15)
[2020-09-01] MEDS ORDERED: levoFLOXacin 500 MG TAB PO ONE (11:15)
--- NOTE | 2020-09-01 11:15 | NUR ---
TPN decreased TPN weaning process started. TPN decreased to 36 ml/hr.
[2020-09-01] MEDS ORDERED: LEVO-28 PO (11:16)
[2020-09-01] MEDS ORDERED: METR500T PO (11:16)
[2020-09-01 13:00] VITALS: BP 123/86
[2020-09-01] MEDS: KETOROLAC TROMETH 30 MG/ML 1ML VIAL IV PRN (13:48)
--- NOTE | 2020-09-01 13:50 | NUR ---
TPN discontinued per MD order. Patient resting in bed with even and unlabored respirations on room air, no distress noted.
[2020-09-01] MEDS ORDERED: metroNIDAZOLE 500 MG TAB PO SCH (14:00)
[2020-09-01] MEDS ORDERED: HYDR-4833 PO (15:23)
--- NOTE | 2020-09-01 16:15 | NUR ---
PICC line removed with aseptic technique Catheter intact. Pressure and dressing applied. Patient tolerated well, no trauma to site.
--- NOTE | 2020-09-01 16:25 | NUR ---
MRSA swab collected & sent to lab per protocol.
--- NOTE | 2020-09-01 16:30 | NUR ---
Education on FRAN drain irrigation provided to the patient. Patient verbalized understanding. Patient demonstrated proper irrigation technique. FRAN drain irrigation supplies provided to the patient.
--- NOTE | 2020-09-01 16:49 | NUR ---
Discharge Patient education, prescription and follow up appointments given. Patient verbalized understanding. No signs or symptoms of distress noted.
[2020-09-01 16:55] VITALS: BP 112/66
--- NOTE | 2020-09-01 17:05 | NUR ---
Transportation arrived to hospital Patient transferred to private vehicle via wheelchair accompanied by staff member. Patient reports having all personal belongings. Incision site to medial abdomen is clean. Dressing changed to lower incision site. Minimal serous drainage noted. No foul odor noted. Upper incision site is well approximated. Lower incision site is unapproximated. MD aware. FRAN drain site to the RLQ is clean and dry. Site is open to air. Discharge education provided to the patient per MD order. Patient verbalized understanding. No bleeding noted at PICC line site. Respirations even and unlabored, no distress noted.
== END 2020-09-01 17:05 | disposition home or self-care (01) | DRG 330 ==
LOC: ER 13:55 → EEVIPCON 13:55 → OVERFLOW 13:56 → CENTRAL 20:08
PROVIDERS: ADMIT Internal Medicine; ATTEND Internal Medicine
PROC: 02HV33Z Insertion of Infusion Device into Superior Vena Cava, Percutaneous Approach (ICD-10-PCS; 2020-08-11)
PROC: 0DTG0ZZ Resection of Left Large Intestine, Open Approach (ICD-10-PCS; principal; 2020-08-16 09:04)
DX: K57.20 Diverticulitis of large intestine with perforation and abscess without bleeding (principal); Z68.42 Body mass index [BMI] 45.0-49.9, adult; K52.9 Noninfective gastroenteritis and colitis, unspecified; E86.0 Dehydration; K76.0 Fatty (change of) liver, not elsewhere classified; E03.9 Hypothyroidism, unspecified; E66.9 Obesity, unspecified; K21.9 Gastro-esophageal reflux disease without esophagitis; E66.01 Morbid (severe) obesity due to excess calories; Z20.828 Contact with and (suspected) exposure to other viral communicable diseases; M54.9 Dorsalgia, unspecified; Z80.0 Family history of malignant neoplasm of digestive organs; Z82.49 Family history of ischemic heart disease and other diseases of the circulatory system; Z90.710 Acquired absence of both cervix and uterus; Z90.49 Acquired absence of other specified parts of digestive tract
CPT/HCPCS: 36415; 36569; 71045; 74021; 74176; 74177; 80048; 80053; 80076; 81001; 81025; 82040; 82270; 82378; 82962; 83605; 83690; 83735; 84100; 84478; 84484; 84702; 85007; 85025; 85027; 85610; 85652; 85730; 86850; 86900; 86901; 87040; 87081; 93306; 97116; 97163; C9113; G0378; J0690; J0696; J1100; J1815; J1885; J2001; J2250; J2405; J2543; J2704; J3480; J3490; J7060; J7131

== ENCOUNTER 2020-09-05 11:54 | Inpatient (IN) | payer BC ==
[~2020-09-05] VITALS: Ht 162.6 cm; Wt 116.2 kg
[~2020-09-05 11:54] MED LIST changes: +HYDR-4833 PO; +LEVO-28 PO; +METR500T PO
[2020-09-05] MEDS ORDERED: SODIUM CHLORIDE 0.9% 500 ML IVB ONE (13:15)
[2020-09-05] MEDS ORDERED: MORPHINE SULF INJ 2 MG/ML SYRINGE 1ML IV PRN (14:30)
[2020-09-05] MEDS ORDERED: NITROGLYCERIN 0.4 MG SL TAB SL PRN (14:30)
[2020-09-05] MEDS: ONDANSETRON HCL 4 MG/2 ML VIAL IV PRN (15:08)
[2020-09-05 15:17] LABS: Basophils # (auto) 0.1 10 ^3/uL (0-0.2); Basophils % (auto) 1.1 % (0.0-2.0); Lymphocytes # (auto) 1.7 10 ^3/uL (0.4-5.4); Monocytes # (auto) 0.7 10 ^3/uL (0-1.3); Nucleated Red Blood Cells % 0.1 %
[2020-09-05 15:21] LABS: Eosinophils # (auto) 0.3 10 ^3/uL (0-0.8); Eosinophils % (auto) 2.6 % (0.0-7.0); Hematocrit 36.5 % (36.0-46.0); Hemoglobin 12.1 g/dL (12.2-16.2); Lymphocytes % (auto) 16.2 % (10.0-50.0); Mean Corpuscular Hgb Conc. 33.1 g/dL (32.0-36.0); Mean Corpuscular Volume 96.7 fL (80.0-100.0); Monocytes % (auto) 6.9 % (0.0-12.0); Neutrophils # (auto) 7.9 10 ^3/uL (1.6-8.6); Neutrophils % (auto) 73.2 % (37.0-80.0); Platelet Count (auto) 562 10^3/uL (140-450); Red Blood Cells 3.77 10^6/uL (4.0-5.20); Red Cell Distribution Width 17.5 % (11.8-14.3); White Blood Cell 10.8 10^3/uL (4.4-10.8)
[2020-09-05 15:32] LABS: Albumin 3.2 g/dL (3.4-5.0); Calcium 9.1 mg/dL (8.5-10.1); Potassium 3.9 mmol/L (3.5-5.1)
[2020-09-05 15:36] LABS: BUN/Creatinine Ratio 10.3; Bilirubin, Total 0.4 mg/dL (0.2-1.0); Total Protein 7.7 g/dL (6.4-8.2)
[2020-09-05] MEDS: MORPHINE SULF INJ 2 MG/ML SYRINGE 1ML IV PRN ×2 (19:12→23:11)
[2020-09-05] MEDS ORDERED: OMEP-260 PO (19:19)
[2020-09-05 19:20] LABS: Urine Bacteria NONE SEEN /hpf (None Seen); Urine Blood 1+ /uL (Negative); Urine Mucus MODERATE (None Seen); Urine Specific Gravity 1.026 (1.001-1.035); Urine WBC 11 /hpf (0 - 5)
[2020-09-05] MEDS ORDERED: BACL10TA PO (19:20)
[2020-09-05] MEDS ORDERED: CHOL20007 PO (19:20)
--- NOTE | 2020-09-05 20:42 | NUR ---
ADMIT TO MED-SURG FROM ER Assumed care of patient who is alert and oriented. Currently on RA with no S/S of distress or SOB noted at this time. Patient is ambulatory without assist, with bathroom privileges. FRAN drain is draining cloudy purulent drainage. Lower abdominal incision is draining serosanguineous. Abdominal incision is covered with abdominal pads. Will continue to monitor for drainage. Patient oriented to hospital policies and room. POC discussed with patient in detail and all questions answered. Verbalized understanding. Bed in lowest position, locked, side rails up x2. Call light within reach. Will continue monitor Q1hr and PRN.
[2020-09-05 20:45] VITALS: BP 123/89
[2020-09-05] MEDS: metroNIDAZOLE 500MG/100ML 100 ML IV SCH (22:00)
[2020-09-06] MEDS: MORPHINE SULF INJ 2 MG/ML SYRINGE 1ML IV PRN ×2 (04:20→08:21)
[2020-09-06 05:35] VITALS: BP 113/65
[2020-09-06] MEDS: metroNIDAZOLE 500MG/100ML 100 ML IV SCH (05:47)
[2020-09-06] MEDS: LEVOTHYROXINE SODIUM 50 MCG TAB PO SCH (06:47)
--- NOTE | 2020-09-06 06:58 | NUR ---
FRAN DRAIN Emptied 15ml of cloudy purulent drainage from FRAN drain.
--- NOTE | 2020-09-06 07:30 | NUR ---
Opening Shift Note Assumed care of patient, awake and alert. No S/S of distress/SOB or pain. Instructed on POC and to call for assist PRN, will continue to monitor for changes Q1hr and PRN. Bed is locked and in lowest position. Call light within reach.
--- NOTE | 2020-09-06 07:33 | NUR ---
CARE ENDORSED TO DAY SHIFT RN
[2020-09-06 08:00] VITALS: BP 101/64
[2020-09-06 09:00] VITALS: BP 101/64
[2020-09-06] MEDS ORDERED: levoFLOXacin 500MG 100 ML IV SCH (10:00)
[2020-09-06] MEDS ORDERED: HYDROmorphone HCL 2 MG/ML VL IV PRN (11:15)
[2020-09-06] MEDS ORDERED: HYOSCYAMINE SULF 0.125 MG ODT TAB PO PRN (11:30)
[2020-09-06] MEDS ORDERED: VANCOMYCIN PER PHARMACY 0 MG IV SCH (11:30)
[2020-09-06] MEDS ORDERED: PIPERACILLIN-TAZOB 3.375GM 100 ML IV SCH (12:00)
[2020-09-06] MEDS ORDERED: KETOROLAC TROMETH 30 MG/ML 1ML VIAL IV PRN ×2 (12:30→17:00)
[2020-09-06 13:00] VITALS: BP 100/61
--- NOTE | 2020-09-06 14:14 | NUR ---
Nutrition Assessment/consult Notes Please see attached link for complete assessment Est energy needs abw 79 [id number] kcal (17-20 kcal/kg ABW), Est protein needs 79-102g (1.0-1.3g/kg ABW r/t wounds) Will reassess prn Addendum: 09/06/20 at [address] Amended: Links added.
[2020-09-06 17:00] VITALS: BP 97/55
[2020-09-06] MEDS: traMADol HCL 50 MG TAB PO PRN (17:55)
[2020-09-06] MEDS: VANCOMYCIN 1GM/250ML 250 ML IV SCH (17:56)
--- NOTE | 2020-09-06 18:10 | NUR ---
10 ML OF BHARDWAJ/GREEN FLUID REMOVED FROM FRAN DRAIN. WILL CONTINUE TO MONITOR.
[2020-09-06] MEDS: metroNIDAZOLE 500 MG TAB PO SCH (18:48)
--- NOTE | 2020-09-06 19:30 | NUR ---
Opening Shift Note Assumed care of patient, awake and alert x4. No S/S of distress/SOB. Patient states pain is 4/0-10 to the abdomen, that is tolerable for her. Dressing to midline incision is C/D/I, no drainage noted to the ruth ann drain in the RLQ. Instructed on POC and to call for assist PRN. Call light is within reach, side rails up x2, bed is in the lowest position. All questions and concerns answered, will continue to monitor for changes Q1hr and PRN.
[2020-09-06] MEDS: ACETAMINOPHEN/CODEINE#3 (300/30mg) TAB PO PRN (20:02)
[2020-09-06] MEDS: PIPERACILLIN-TAZOB 3.375GM 100 ML IV SCH (20:02)
[2020-09-06 22:00] VITALS: BP 106/63
[2020-09-06] MEDS: TEMAZEPAM 15 MG CAP PO PRN (22:53)
[2020-09-07] VITALS (7 sets, daily range): BP systolic 103–116; BP diastolic 63–67
[2020-09-07] MEDS: metroNIDAZOLE 500 MG TAB PO SCH ×2 (00:06→06:46)
[2020-09-07] MEDS: traMADol HCL 50 MG TAB PO PRN ×3 (00:07→14:13)
[2020-09-07] MEDS: VANCOMYCIN 1GM/250ML 250 ML IV SCH ×2 (01:00→10:21)
[2020-09-07] MEDS: ACETAMINOPHEN/CODEINE#3 (300/30mg) TAB PO PRN ×4 (01:00→16:35)
[2020-09-07] MEDS: PIPERACILLIN-TAZOB 3.375GM 100 ML IV SCH ×3 (02:04→15:06)
[2020-09-07] MEDS: LEVOTHYROXINE SODIUM 50 MCG TAB PO SCH (06:46)
--- NOTE | 2020-09-07 06:55 | NUR ---
NOC SHIFT RUTH ANN OUTPUT 5ml of anne/green fluid drained from ruth ann drain.
--- NOTE | 2020-09-07 07:30 | NUR ---
Opening Shift Note Assumed care of patient, awake and alert. No S/S of distress/SOB. Patient states she has abdominal pain 05/26, patient will be given ordered pain medication. Instructed on POC and to call for assist PRN, will continue to monitor for changes Q1hr and PRN. Bed is locked and in lowest position. Call light within reach.
[2020-09-07 07:54] LABS: BUN/Creatinine Ratio 11.3; Calcium 8.8 mg/dL (8.5-10.1); Potassium 3.2 mmol/L (3.5-5.1)
[2020-09-07] MEDS: ONDANSETRON HCL 4 MG/2 ML VIAL IV PRN ×3 (07:59→21:50)
[2020-09-07] MEDS: FLUCONAZOLE 200MG/100ML 100 ML IV SCH (11:45)
[2020-09-07] MEDS: CARISOPRODOL 350 MG TAB PO PRN ×2 (11:45→21:41)
[2020-09-07] MEDS: metroNIDAZOLE 500MG/100ML 100 ML IV SCH ×2 (13:36→21:41)
--- NOTE | 2020-09-07 15:00 | NUR ---
PATIENT FRAN DRAIN IRRIGATED USING STERILE TECHNIQUE WITH 50 ML OF STERILE SALINE PER DR. BENITES ORDER. PATIENT TOLERATED IRRIGATION WELL WITH NO SIGNS OF DISTRESS OR PAIN. FRAN DRAIN WILL BE CONTINUED TO BE MONITORED.
--- NOTE | 2020-09-07 15:50 | NUR ---
Midline Placement: Patient educated on need for midline placement. All risks and benefits explained and all questions and concerns addresses prior to procedure. 18g/10 cm midline inserted via left basilic vein using Ultrasound. Sterile technique utilized. Blood return obtained from lumen and flushed easily with NS using proper technique. Midline secured with saline lock; biodisc and occlusive dressing applied. Primary RN Elen notified. Midline lot # [id number]
--- NOTE | 2020-09-07 16:05 | NUR ---
PT DECLINED P.T. BECAUSE OF NAUSEA.
--- NOTE | 2020-09-07 18:08 | NUR ---
PHONE CALL RECEIVED FROM PHARMACY REGARDING VANCO THROUGH . VANCOMYCIN HELD FOR 1700 ORDERED PER PHARMACY PROTOCOL OF HIGH VANCO VALUE. RANDOM VANCO THROUGH WILL BE REDRAWN. WILL CONTINUE TO MONITOR PATIENT.
[2020-09-07] MEDS: TEMAZEPAM 15 MG CAP PO PRN (21:41)
--- NOTE | 2020-09-07 22:00 | NUR ---
FRAN DRAIN WITH 5MLS PURULENT DRAINAGE.
--- NOTE | 2020-09-07 22:05 | NUR ---
FRAN IRRIGATED WITH 50MLS STERILE WATER PER ORDERS.
[2020-09-08] MEDS: traMADol HCL 50 MG TAB PO PRN ×2 (03:15→16:11)
[2020-09-08 05:00] VITALS: BP 108/62
[2020-09-08] MEDS ORDERED: VANCOMYCIN 1GM/250ML 250 ML IV SCH (05:00)
--- NOTE | 2020-09-08 05:00 | NUR ---
FRAN DRAINED 30 MLS PINK PURULENT DRAINAGE THIS SHIFT.
[2020-09-08] MEDS: metroNIDAZOLE 500MG/100ML 100 ML IV SCH ×2 (06:26→16:10)
[2020-09-08] MEDS: LEVOTHYROXINE SODIUM 50 MCG TAB PO SCH (06:26)
--- NOTE | 2020-09-08 07:40 | NUR ---
Opening Shift Note Assumed care of patient, awake and alert. No S/S of distress/SOB or pain. Instructed on POC and to call for assist PRN, will continue to monitor for changes Q1hr and PRN.
[2020-09-08 09:00] VITALS: BP 97/71
[2020-09-08] MEDS ORDERED: levoFLOXacin 500MG 100 ML IV SCH (10:00)
[2020-09-08] MEDS: FLUCONAZOLE 200MG/100ML 100 ML IV SCH (10:43)
[2020-09-08] MEDS: CARISOPRODOL 350 MG TAB PO PRN (10:43)
[2020-09-08] MEDS: ONDANSETRON HCL 4 MG/2 ML VIAL IV PRN (11:37)
[2020-09-08 13:00] VITALS: BP 108/68
[2020-09-08 16:00] VITALS: BP 113/76
--- NOTE | 2020-09-08 17:46 | NUR ---
Discharge instructions given as ordered. Encourage to follow up with PMD as instructed. All questions and concerns addressed. Patient verbalized understanding. Medication reconciliation form completed and copy given to patient. Both IV's removed with catheter intact, pressure dressing applied. Patient taken to vehicle via wheelchair with all personal belongings, accompanied by staff. No distress noted at time of departure.
== END 2020-09-08 17:46 | disposition home or self-care (01) | DRG 392 ==
LOC: EEVIPCON 11:54 → ER 11:54 → OVERFLOW 11:55 → CENTRAL 20:42
PROVIDERS: ADMIT Nurse Practitioner Acute Care; ATTEND Internal Medicine
DX: K57.20 Diverticulitis of large intestine with perforation and abscess without bleeding (principal); F11.20 Opioid dependence, uncomplicated; Z68.41 Body mass index [BMI] 40.0-44.9, adult; Z90.49 Acquired absence of other specified parts of digestive tract; E66.01 Morbid (severe) obesity due to excess calories; E03.9 Hypothyroidism, unspecified; K76.0 Fatty (change of) liver, not elsewhere classified; Z80.0 Family history of malignant neoplasm of digestive organs; Z82.49 Family history of ischemic heart disease and other diseases of the circulatory system; Z90.710 Acquired absence of both cervix and uterus; K21.9 Gastro-esophageal reflux disease without esophagitis; K29.70 Gastritis, unspecified, without bleeding; K52.9 Noninfective gastroenteritis and colitis, unspecified; Z82.61 Family history of arthritis; B37.9 Candidiasis, unspecified
CPT/HCPCS: 36415; 74176; 80048; 80053; 80202; 81001; 82565; 83605; 83690; 84443; 85025; 87040; 87077; 87081; 87186; 87205; 87493; 96361; 96374; 96375; G0378; J1450; J1885; J1956; J2405; J2543; J3490

== ENCOUNTER → 2020-12-29 | Outpatient (CLI) | payer BC ==
[~2020-12-29] MED LIST changes: +OMEP-260 PO; -SUCR1TAB PO
[2020-12-29 08:15] LABS: Basophils # (auto) 0 10 ^3/uL (0-0.2); Basophils % (auto) 0.3 % (0.0-2.0); Eosinophils # (auto) 0.2 10 ^3/uL (0-0.8); Eosinophils % (auto) 2.4 % (0.0-7.0); Hematocrit 40.6 % (36.0-46.0); Hemoglobin 13.8 g/dL (12.2-16.2); Lymphocytes # (auto) 1.9 10 ^3/uL (0.4-5.4); Lymphocytes % (auto) 26.6 % (10.0-50.0); Mean Corpuscular Hemoglobin 27.4 pg (28.0-32.0); Mean Corpuscular Hgb Conc. 33.9 g/dL (32.0-36.0); Mean Corpuscular Volume 80.8 fL (80.0-100.0); Monocytes # (auto) 0.3 10 ^3/uL (0-1.3); Monocytes % (auto) 4.8 % (0.0-12.0); Neutrophils # (auto) 4.7 10 ^3/uL (1.6-8.6); Neutrophils % (auto) 65.9 % (37.0-80.0); Nucleated Red Blood Cells % 0.5 %; Platelet Count (auto) 263 10^3/uL (140-450); Red Blood Cells 5.03 10^6/uL (4.0-5.20); White Blood Cell 7.2 10^3/uL (4.4-10.8)
[2020-12-29 08:47] LABS: Albumin 3.3 g/dL (3.4-5.0); Potassium 3.7 mmol/L (3.5-5.1)
[2020-12-29 08:55] LABS: BUN/Creatinine Ratio 14.5; Bilirubin, Total 0.3 mg/dL (0.2-1.0); Calcium 8.5 mg/dL (8.5-10.1); Ferritin 43.6 ng/mL (10-322); Total Protein 7.5 g/dL (6.4-8.2)
== END | disposition home or self-care (01) ==
LOC: LAB 07:37
PROVIDERS: ATTEND Internal Medicine
DX: E78.5 Hyperlipidemia, unspecified (principal); E55.9 Vitamin D deficiency, unspecified; R21 Rash and other nonspecific skin eruption; D64.9 Anemia, unspecified
CPT/HCPCS: 36415; 80053; 80061; 82306; 82607; 82728; 83036; 83540; 84443; 85025

== ENCOUNTER → 2021-02-23 | Outpatient (CLI) | payer BC | END | disposition home or self-care (01) | LOC: LAB 07:33 | PROVIDERS: ATTEND Internal Medicine | DX: E03.9 Hypothyroidism, unspecified (principal) | CPT/HCPCS: 36415; 84443 ==

== ENCOUNTER 2021-04-15 20:29 | Emergency (ER) | payer BC ==
[~2021-04-15] VITALS: Ht 162.6 cm; Wt 99.8 kg
[2021-04-15] MEDS ORDERED: MORPHINE SULF INJ 2 MG/ML SYRINGE 1ML IV ONE (23:00)
[2021-04-15] MEDS ORDERED: ONDANSETRON HCL 4 MG/2 ML VIAL IV ONE (23:00)
[2021-04-16 01:12] VITALS: BP 123/81
[2021-04-16] MEDS ORDERED: HYDROmorphone HCL 2 MG/ML VL IV ONE (01:15)
== END 2021-04-16 01:50 | disposition home or self-care (01) ==
LOC: EDBD 20:29 → ER 20:29
DX: S13.9XXA Sprain of joints and ligaments of unspecified parts of neck, initial encounter (principal); S20.212A Contusion of left front wall of thorax, initial encounter; R51.9 Headache, unspecified; Z90.49 Acquired absence of other specified parts of digestive tract; Z90.710 Acquired absence of both cervix and uterus; Z98.51 Tubal ligation status; V43.52XA Car driver injured in collision with other type car in traffic accident, initial encounter; Y93.89 Activity, other specified; Y92.410 Unspecified street and highway as the place of occurrence of the external cause; Y99.8 Other external cause status
CPT/HCPCS: 70450; 71045; 71250; 72125; 72131; 73560; 96374; 96375; 99285; J1170; J2270; J2405

== ENCOUNTER → 2022-12-26 | Outpatient (CLI) | payer BC ==
[2022-12-26 12:29] LABS: Basophils # (auto) 0.1 10 ^3/uL (0-0.2); Eosinophils # (auto) 0.1 10 ^3/uL (0-0.8); Eosinophils % (auto) 1.4 % (0.0-7.0); Hematocrit 47.4 % (36.0-46.0); Hemoglobin 16.5 g/dL (12.2-16.2); Lymphocytes # (auto) 2.1 10 ^3/uL (0.4-5.4); Lymphocytes % (auto) 27.4 % (10.0-50.0); Mean Corpuscular Hemoglobin 32.4 pg (28.0-32.0); Mean Corpuscular Hgb Conc. 34.8 g/dL (32.0-36.0); Monocytes # (auto) 0.5 10 ^3/uL (0-1.3); Monocytes % (auto) 6.5 % (0.0-12.0); Neutrophils # (auto) 4.9 10 ^3/uL (1.6-8.6); Neutrophils % (auto) 63.7 % (37.0-80.0); Nucleated Red Blood Cells % 0.3 %; Red Cell Distribution Width 13.7 % (11.8-14.3); White Blood Cell 7.6 10^3/uL (4.4-10.8)
[2022-12-26 13:04] LABS: Albumin 3.8 g/dL (3.4-5.0); Calcium 8.9 mg/dL (8.5-10.1); Potassium 4.4 mmol/L (3.5-5.1)
[2022-12-26 13:08] LABS: BUN/Creatinine Ratio 15.9; Bilirubin, Total 0.4 mg/dL (0.2-1.0); Total Protein 7.7 g/dL (6.4-8.2)
== END | disposition home or self-care (01) ==
LOC: LAB 12:09
PROVIDERS: ATTEND Nurse Practitioner Family
DX: I10 Essential (primary) hypertension (principal); E11.9 Type 2 diabetes mellitus without complications; E03.9 Hypothyroidism, unspecified
CPT/HCPCS: 36415; 80053; 80061; 82043; 82306; 83036; 84439; 84443; 85025

== ENCOUNTER 2023-03-26 09:53 | Emergency (ER) | payer BC ==
[~2023-03-26] VITALS: Ht 162.6 cm; Wt 125.4 kg
[2023-03-26] MEDS ORDERED: IOHEXOL 350 MG/ML 100ML IJ ONE (10:34)
[2023-03-26 10:39] LABS: Basophils # (auto) 0.1 10 ^3/uL (0-0.2); Basophils % (auto) 1.3 % (0.0-2.0); Eosinophils # (auto) 0.1 10 ^3/uL (0-0.8); Eosinophils % (auto) 1.2 % (0.0-7.0); Hematocrit 46.7 % (36.0-46.0); Lymphocytes # (auto) 1.9 10 ^3/uL (0.4-5.4); Mean Corpuscular Hemoglobin 31.1 pg (28.0-32.0); Mean Corpuscular Hgb Conc. 34.2 g/dL (32.0-36.0); Monocytes # (auto) 0.4 10 ^3/uL (0-1.3); Monocytes % (auto) 5.4 % (0.0-12.0); Neutrophils # (auto) 5.7 10 ^3/uL (1.6-8.6); Neutrophils % (auto) 69.1 % (37.0-80.0); Red Blood Cells 5.14 10^6/uL (4.0-5.20); White Blood Cell 8.3 10^3/uL (4.4-10.8)
[2023-03-26 10:58] LABS: Albumin 3.5 g/dL (3.4-5.0); Calcium 8.9 mg/dL (8.5-10.1); Potassium 3.5 mmol/L (3.5-5.1)
[2023-03-26 11:04] LABS: BUN/Creatinine Ratio 14.1 (10.0-20.0); Bilirubin, Total 0.7 mg/dL (0.2-1.0); Total Protein 7.2 g/dL (6.4-8.2)
[2023-03-26] MEDS ORDERED: TENECTEPLASE 50 MG KIT IV ONE (11:15)
[2023-03-26] MEDS ORDERED: ALTEPLASE (RECOMBINANT) 100 MG ONE (11:21)
[2023-03-26] MEDS ORDERED: ALTEPLASE (RECOMBINANT) 100 MG in STERILE WATER 100 ML IV ONE (11:45)
[2023-03-26] MEDS ORDERED: LORazepam 2MG/ML-1ML VIAL IV ONE (12:00)
[2023-03-26 12:30] VITALS: BP 114/77
[2023-03-26] MEDS ORDERED: LORazepam 2MG/ML-1ML VIAL IV PRN (14:00)
== END 2023-03-26 12:47 | disposition short-term general hospital (02) ==
LOC: ER 09:53 → EEVIPCON 09:53 → ER 12:47
DX: I63.9 Cerebral infarction, unspecified (principal); K21.9 Gastro-esophageal reflux disease without esophagitis; Z90.49 Acquired absence of other specified parts of digestive tract; Z90.710 Acquired absence of both cervix and uterus; Z98.51 Tubal ligation status
CPT/HCPCS: 36415; 70450; 70496; 71045; 80053; 83735; 85025; 96365; 96375; 99285; J2060; J2997; Q9967; 93005

== ENCOUNTER → 2023-04-09 | Outpatient (CLI) | payer BC | END | disposition home or self-care (01) | LOC: LAB 07:31 | PROVIDERS: ATTEND Nurse Practitioner Family | DX: E03.9 Hypothyroidism, unspecified (principal) | CPT/HCPCS: 36415; 84439; 84443 ==

== ENCOUNTER → 2023-06-11 | Day surgery (SDC) | payer BC ==
[2023-06-09 14:45] LABS: Basophils # (auto) 0.1 10 ^3/uL (0-0.2); Basophils % (auto) 0.8 % (0.0-2.0); Eosinophils # (auto) 0 10 ^3/uL (0-0.8); Eosinophils % (auto) 0.3 % (0.0-7.0); Hematocrit 48.6 % (36.0-46.0); Hemoglobin 16.3 g/dL (12.2-16.2); Lymphocytes # (auto) 1.7 10 ^3/uL (0.4-5.4); Lymphocytes % (auto) 19.2 % (10.0-50.0); Mean Corpuscular Hemoglobin 31.3 pg (28.0-32.0); Mean Corpuscular Hgb Conc. 33.5 g/dL (32.0-36.0); Mean Corpuscular Volume 93.4 fL (80.0-100.0); Monocytes # (auto) 0.5 10 ^3/uL (0-1.3); Monocytes % (auto) 5.9 % (0.0-12.0); Neutrophils # (auto) 6.7 10 ^3/uL (1.6-8.6); Neutrophils % (auto) 73.8 % (37.0-80.0); Nucleated Red Blood Cells % 0.1 %; Red Cell Distribution Width 14.3 % (11.8-14.3); White Blood Cell 9.1 10^3/uL (4.4-10.8)
[2023-06-09 14:56] LABS: Urine Bacteria NONE SEEN /hpf (None Seen); Urine Blood Negative /uL (Negative); Urine Mucus FEW (None Seen); Urine WBC 36 /hpf (0 - 5)
[2023-06-09 15:01] LABS: Partial Thromboplastin Time 27.9 SEC (24.5-34.5)
[2023-06-09 15:09] LABS: Albumin 3.5 g/dL (3.4-5.0); Calcium 8.7 mg/dL (8.5-10.1)
[2023-06-09 15:14] LABS: BUN/Creatinine Ratio 11.9 (10.0-20.0); Bilirubin, Total 0.6 mg/dL (0.2-1.0); Total Protein 7.4 g/dL (6.4-8.2)
[~2023-06-11] VITALS: Ht 162.6 cm; Wt 127.0 kg
[~2023-06-11] MED LIST changes: +KETAMINE HCL 10 ML ONE; -LEVO-28 PO; +LEVO125C3 PO; -LEVO150T10 PO; -METR500T PO; +MIDAZOLAM HCL 2MG/2ML 2ml VIAL (1mg/ml) ONE; -OMEP-260 PO; +OMEP1CAP70 PO; +ONDANSETRON HCL 4 MG/2 ML VIAL IV PRN; +PROPOFOL 10 MG/ML 20 ML IV ONE; +fentaNYL CITRATE 100 MCG/2 ML VL ONE
[2023-06-11 14:04] VITALS: O2SAT 97
[2023-06-11 14:49] VITALS: BP 133/66; PULSE 71; RESP 16; O2SAT 97
== END | disposition home or self-care (01) ==
LOC: GI 12:00 → EEVIPCON 12:45
PROVIDERS: ATTEND Internal Medicine Gastroenterology
DX: Z12.11 Encounter for screening for malignant neoplasm of colon (principal); K57.30 Diverticulosis of large intestine without perforation or abscess without bleeding; K64.8 Other hemorrhoids; K63.5 Polyp of colon; K21.00 Gastro-esophageal reflux disease with esophagitis, without bleeding; K44.9 Diaphragmatic hernia without obstruction or gangrene; K29.50 Unspecified chronic gastritis without bleeding
CPT/HCPCS: 36415; 43239; 45385; 80053; 81001; 85025; 85610; 85730; 88305; 88312; 88342; J2250; J2704; J3010; J7030

== ENCOUNTER → 2023-11-05 | Outpatient (CLI) | payer BC ==
[~2023-11-05] MED LIST changes: -KETAMINE HCL 10 ML ONE; -MIDAZOLAM HCL 2MG/2ML 2ml VIAL (1mg/ml) ONE; -ONDANSETRON HCL 4 MG/2 ML VIAL IV PRN; -PROPOFOL 10 MG/ML 20 ML IV ONE; -fentaNYL CITRATE 100 MCG/2 ML VL ONE
[2023-11-05 11:02] LABS: Albumin 4.2 g/dL (3.2-4.8)
[2023-11-05 11:03] LABS: Bilirubin, Direct 0.3 mg/dL (<0.3); Total Protein 6.9 g/dL (5.7-8.2)
== END | disposition home or self-care (01) ==
LOC: LAB 10:03
PROVIDERS: ATTEND Internal Medicine Gastroenterology
DX: K75.81 Nonalcoholic steatohepatitis (NASH) (principal)
CPT/HCPCS: 36415; 80076; 82728; 86038

== ENCOUNTER 2024-01-24 17:57 | Emergency (ER) | payer BC, OTHER ==
[~2024-01-24] VITALS: Ht 162.6 cm; Wt 136.3 kg
[2024-01-24 19:59] VITALS: BP 135/75; PULSE 88; RESP 18; TEMP 98.7; O2SAT 96
[2024-01-24] MEDS: HYDROcodone-ACET 10/325MG TAB PO ONE (20:24)
== END 2024-01-24 21:35 | disposition home or self-care (01) ==
LOC: ER 17:57
DX: S80.01XA Contusion of right knee, initial encounter (principal); K21.9 Gastro-esophageal reflux disease without esophagitis; Z98.890 Other specified postprocedural states; Z79.899 Other long term (current) drug therapy; W01.0XXA Fall on same level from slipping, tripping and stumbling without subsequent striking against object, initial encounter; Y93.89 Activity, other specified; Y92.091 Bathroom in other non-institutional residence as the place of occurrence of the external cause; Y99.8 Other external cause status
CPT/HCPCS: 73560; 93971

== ENCOUNTER → 2024-04-14 | Outpatient (CLI) | payer BC ==
[2024-04-14 07:37] LABS: Basophils # (auto) 0.1 10 ^3/uL (0-0.2); Basophils % (auto) 0.9 % (0.0-2.0); Eosinophils # (auto) 0.1 10 ^3/uL (0-0.8); Hematocrit 47.9 % (36.0-46.0); Hemoglobin 16.6 g/dL (12.2-16.2); Lymphocytes # (auto) 1.5 10 ^3/uL (0.4-5.4); Mean Corpuscular Hemoglobin 33.4 pg (28.0-32.0); Mean Corpuscular Hgb Conc. 34.6 g/dL (32.0-36.0); Mean Corpuscular Volume 96.5 fL (80.0-100.0); Monocytes # (auto) 0.4 10 ^3/uL (0-1.3); Monocytes % (auto) 6.8 % (0.0-12.0); Neutrophils # (auto) 4.2 10 ^3/uL (1.6-8.6); Neutrophils % (auto) 66.3 % (37.0-80.0); Nucleated Red Blood Cells % 0.2 %; Red Blood Cells 4.96 10^6/uL (4.0-5.20); Red Cell Distribution Width 13.4 % (11.8-14.3); White Blood Cell 6.4 10^3/uL (4.4-10.8)
[2024-04-14 07:45] LABS: Alanine Aminotransferase 45 U/L (7-40); Alkaline Phosphatase 116 U/L (46-116); Anion Gap 7 (5-15); BUN/Creatinine Ratio 8.8 (10.0-20.0); Blood Urea Nitrogen 6 mg/dL (9-23); Calcium 9.4 mg/dL (8.5-10.1); Carbon Dioxide 28 mmol/L (20-30); Chloride 101 mmol/L (98-107); Glucose 140 mg/dL (74-106); Potassium 3.8 mmol/L (3.5-5.1); Sodium 136 mmol/L (136-145)
[2024-04-14 07:46] LABS: Albumin 3.5 g/dL (3.2-4.8); Aspartate Aminotransferase 62 U/L (13-40)
[2024-04-14 07:47] LABS: Bilirubin, Total 1.1 mg/dL (0.2-1.0); Total Protein 6.8 g/dL (5.7-8.2)
== END | disposition home or self-care (01) ==
LOC: LAB 06:51
PROVIDERS: ATTEND Nurse Practitioner Family
DX: R60.0 Localized edema (principal)
CPT/HCPCS: 36415; 80053; 83880; 85025

== ENCOUNTER → 2024-04-19 | Outpatient (CLI) | payer BC | END | disposition home or self-care (01) | LOC: XYW 13:40 | PROVIDERS: ATTEND Nurse Practitioner Family | DX: R60.0 Localized edema (principal) | CPT/HCPCS: 93306 ==

== ENCOUNTER → 2024-09-16 | Outpatient (CLI) | payer BC, OTHER | END | disposition home or self-care (01) | LOC: LAB 05:59 | PROVIDERS: ATTEND Nurse Practitioner Family | DX: R21 Rash and other nonspecific skin eruption (principal) | CPT/HCPCS: 87205 ==

== ENCOUNTER 2024-10-16 10:41 | Observation (INO) | payer BC, OTHER ==
[2024-10-16] MEDS ORDERED: VANCOMYCIN PER PHARMACY 0 MG IV ONE (10:45)
[2024-10-16] MEDS: VANCOMYCIN 1GM/250ML KIT 200 ML IV ONE (11:46)
== END 2024-10-16 13:10 | disposition home or self-care (01) ==
LOC: OVERFLOW 10:41
PROVIDERS: ADMIT Internal Medicine; ATTEND Internal Medicine
DX: A49.02 Methicillin resistant Staphylococcus aureus infection, unspecified site (principal); Z79.899 Other long term (current) drug therapy
CPT/HCPCS: 96365; G0378; J3370

== ENCOUNTER 2024-11-22 19:28 | Emergency (ER) | payer BC, OTHER ==
[~2024-11-22] VITALS: Ht 162.6 cm; Wt 138.9 kg
[2024-11-22 19:57] VITALS: BP 152/76; PULSE 99; RESP 17; TEMP 97.9; O2SAT 96
[2024-11-22] MEDS ORDERED: ACE3T PO (21:42)
[2024-11-22] MEDS ORDERED: AMOX875T4 PO (21:42)
[2024-11-22] MEDS ORDERED: CIPR1SUS8 OT (21:42)
--- NOTE | 2024-11-22 21:43 | ED.PDOC ---
Eye-HPI HPI Comments 49 year old female presents to ER with complaints of left-sided earache x three days. Patient with past medical history significant for rosacea reports that she has been experiencing left-sided earache pain with intermittent yellow drainage from left ear x3 days with associated left sided headache x 1 day. Patient also reports redness/burning sensation to face that started three days ago after she used "proactive" on her face. She rates her current pain a 6/10. Patient presents to ER ambulatory on arrival, with steady gait, in no distress. Denies fever, body aches, chills, nausea/vomiting, dizziness, hearing changes, numbness/tingling or any further symptoms/complaints Chief Complaint: Rash Time Seen by MD: 19:46 Primary Care Provider: KIMO Reviewed Notes: Nurses Notes, Medications, Allergies Allergies: Coded Allergies: NO KNOWN ALLERGIES (Unverified , 06/23/18) Home Meds Active Scripts Ciprofloxacin-Dexamethasone (Ciprofloxacin/Dexamethaso 0.3-0.1 %) 1 Martha Martha, 4 DROP OT BID for 7 Days, #1 BOTTLE 0 Refills Prov:WILLIAM SMALLWOOD 11/22/24 Acetaminophen W/ Codeine (Tylenol W/Cod #3) 1 Tab Tb, 1 TAB PO Q6HPRN, #10 TAB 0 Refills Prov:WILLIAM SMALLWOOD 11/22/24 Amoxicillin & Pot Clavulanate (Amoxicillin/Potassium Cla) 875 Mg Tab, 1 TAB PO BID for 7 Days, #14 TAB 0 Refills Prov:WILLIAM SMALLWOOD 11/22/24 Reported Medications Levothyroxine Sodium (Levothyroxine Sodium) 125 Mcg Cap, 125 MCG PO DAILY, CAP 06/09/23 Omeprazole (Omeprazole Dr) 20 Mg Cap, 20 MG PO QPM, CAP 09/05/20 Hydrocodone-Acetaminophen ([place] 5/325MG) 1 Tab Tb, 1 TAB PO Q6HP PRN for PAIN SCALE 7 THRU 10, #90 TAB 09/01/20 Pantoprazole Sodium Sesquihydr (Protonix) 40 Mg Tab, 40 MG PO QAM, #30 TAB 08/12/17 Information Source: Patient Mode of Arrival: Ambulatory Past Medical History PAST MEDICAL HISTORY: GERD, Thyroid, UTI'S Surgical History: Cholecystectomy, Hysterectomy, Tubal Ligation Surgical History (Other): Partial bowel resection BUSINESS SPECIALIST History: No Pertinent BUSINESS SPECIALIST History Family History Family History: Family hx of Cancer, Family hx of heart jessica Social History Smoker: Non-Smoker Alcohol: Rarely Drugs: Denies Drug Use Lives In: Home Constitutional: denies: chills, diaphoresis, fatigue, fever, malaise, sweats, weakness, others EENTM: reports: others (As stated in HPI) Respiratory: denies: cough, hemoptysis, orthopnea, SOB at rest, shortness of breath, SOB with excertion, stridor, wheezing, others Cardiovascular: denies: chest pain, dizzy spells, diaphoresis, Dyspnea on exert ion, edema, irregular heart beat, left arm pain, lightheadedness, palpitations, PND, syncope, others Gastrointestinal: denies: abdomen distended, abdominal pain, blood streaked bowels, constipated, diarrhea, dysphagia, difficulty swallowing, hematemesis, melena, nausea, poor appetite, poor fluid intake, rectal bleeding, rectal pain, vomiting, others Genitourinary: denies: abnormal vagina bleeding, burning, dyspareunia, dysuria, flank pain, frequency, hematuria, incontinence, pain, , vagina discharge, urgency, others Neurological: reports: others (As stated in HPI) Musculoskeletal: denies: back pain, gout, joint pain, joint swelling, muscle pain, muscle stiffness, neck pain, others Integumetry: reports: others (As stated in HPI) Allergic/Immunocompromised: denies: Difficulty Healing, Frequent Infections, Hives, Itching, others Hematologic/Lymphatic: denies: anemia, blood clots, easy bleeding, easy bruising, swollen glands, others Endocrine: denies: excessive hunger, excessive sweating, excessive thirst, excessive urination, flushing, intolerance to cold, intolerance to heat, unexplained weight gain, unexplained weight loss, others Psychiatric: denies: anxiety, bipolar disorder, depression, hopeless, panic disorder, schizophrenia, sleepless, suicidal, others Physical Exam General Appearance: No Apparent Distress, Obese HEENT: PERRL/EOMI, Pharynx Normal, Other (Mild erythema/bulging noted to left TM, mild erythema also noted to left middle ear canal, no drainage from left ear canal appreciated. Remainder of bilateral ear exam- unremarkable. Mild perioral erythema also noted, no drainage/further skin changes noted) Neck: Full Range of Motion, Non-Tender, Normal Respiratory: Chest Non-Tender, Lungs Clear, No Accessory Muscle Use, No Respiratory Distress, Normal Breath Sounds Cardiovascular: No Murmur, No Gallop, Regular Rate/Rhythm Breast Exam: Deferred Gastrointestinal: NOT DONE Genitalia: Deferred Pelvic: Deferred Rectal: Deferred Extremities: Normal capillary refill, Normal range of motion Neurologic: Alert, analytical technician II-XII nml as Tested, No Motor Deficits, Normal Affect, Normal Mood, No Sensory Deficits Cerebellar Function: Normal Reflexes: Normal Skin: Dry, Warm Peripheral Pulses: 2+ Radial (R), 2+ Radial (L), 2+ Brachial (R), 2+ Brachial (L) Lymphatic: No Adenopathy Was a procedure done? Was a procedure done?: No Sedation Sedation?: No EENT DIFF Eye: N/A Ear: Abrasion, Cerumen Impaction, Foreign Body, Otitis Externa X-Ray, Labs, Meds, VS Vital Signs Date Time Temp Pulse Resp B/P (MAP) Pulse Ox O2 Delivery O2 Flow Rate FiO2 11/22/24 19:57 97.9 99 17 152/76 (101) 96 Current Medications Medications (Trade) Dose Ordered Sig/Amarjit Route Start Time Stop Time Status Last Admin Ceftriaxone Sodium (Rocephin) 1,000 mg ONCE ONCE IM 11/22/24 21:45 11/22/24 21:46 11/22/24 21:45 Rocephin 1 g IM ordered Toradol 60 mg IM ordered Advised to drink plenty of fluids Patient in no distress during ER visit/prior to discharge Advised on importance of not sticking any foreign body into ear canals Advised to follow up with PCP in 1-2 days Patient verbalized understanding and agreeable with current plan of care Advised to return to ER immediately if symptoms worsen Time of 1ST Reevaluation: 21:12 Reevaluation 1ST: N/A Patient Education/Counseling: Diagnosis, Treatment, Prognosis, Need For Follow Up Family Education/Counseling: No Family Present Departure 1 Departure Time of Disposition: 21:32 Impression: Primary Impression: Otitis media of left ear Qualified Codes: H66.92 - Otitis media, unspecified, left ear Additional Impression: Hx of rosacea Disposition: HOME / SELF CARE / HOMELESS Condition: Stable e-Prescriptions Ciprofloxacin-Dexamethasone (Ciprofloxacin/Dexamethaso 0.3-0.1 %) 1 Martha Martha 4 DROP OT BID for 7 Days, #1 BOTTLE 0 Refills Prov: WILLIAM SMALLWOOD 11/22/24 Acetaminophen W/ Codeine (Tylenol W/Cod #3) 1 Tab Tb 1 TAB PO Q6HPRN, #10 TAB 0 Refills Prov: WILLIAM SMALLWOOD 11/22/24 Amoxicillin & Pot Clavulanate (Amoxicillin/Potassium Cla) 875 Mg Tab 1 TAB PO BID for 7 Days, #14 TAB 0 Refills Prov: WILLIAM SMALLWOOD 11/22/24 Discharged With: Self Critical Care Note Critical Care Time?: No Stability Stability form required: No Heart Score Heart Score: Heart Score Response (Comments) Value History N/A 0 EKG N/A 0 Age N/A 0 Risk Factors N/A 0 Troponin N/A 0 Total 0 WILLIAM SMALLWOOD Nov 22, 2024 21:43
[2024-11-22] MEDS: cefTRIAXone SOD 1,000 MG VL IM ONE (21:45)
[2024-11-22] MEDS: KETOROLAC TROMETH 60MG/2ML VIAL IM ONE (21:46)
== END 2024-11-22 22:26 | disposition home or self-care (01) ==
LOC: ER 19:28
DX: H66.92 Otitis media, unspecified, left ear (principal); L71.9 Rosacea, unspecified; E03.9 Hypothyroidism, unspecified; K21.9 Gastro-esophageal reflux disease without esophagitis; Z79.899 Other long term (current) drug therapy; Z87.440 Personal history of urinary (tract) infections; Z90.49 Acquired absence of other specified parts of digestive tract; Z90.710 Acquired absence of both cervix and uterus; Z98.890 Other specified postprocedural states
CPT/HCPCS: 96372; 99284; J0696; J1885